=== PATIENT | male | born 1935 | race Caucasian/White ===

== ENCOUNTER → 2017-02-16 | Outpatient (CLI) | payer MEDICARE ==
[2017-02-16 10:28] LABS: CH 29.8; CHCM 30.8; HCT 40.8 % (39.0-53.0); HDW 2.14; Hypochromasia Slight; MCHC 31.9 g/dL (31.0-37.0); MCV 97.2 fL (80.0-100.0); Mean Platelet Volume 6.9; RDW 12.8 % (11.5-15.5); WBC 8.5 k/uL (3.8-10.6)
[2017-02-16 10:44] LABS: ALT 27 U/L (21-72); AST 19 U/L (17-59); Alkaline Phosphatase 44 U/L (38-126); Anion Gap 13 mmol/L; Blood Urea Nitrogen 24 mg/dL (9-20); Calcium 9.9 mg/dL (8.4-10.2); Carbon Dioxide 27 mmol/L (22-30); Chloride 101 mmol/L (98-107); Cholesterol 196 mg/dL (<200); Creatine Kinase 66 U/L (55-170); Glucose 91 mg/dL (74-99); HDL Cholesterol 74 mg/dL (40-60); Non-African American GFR(MDRD) >60 (>60 ml/min/1.73 sqM); Potassium 4.7 mmol/L (3.5-5.1); Sodium 141 mmol/L (137-145); Total Bilirubin 0.3 mg/dL (0.2-1.3); Total Protein 7.4 g/dL (6.3-8.2)
[2017-02-16 12:41] LABS: Hemoglobin A1C 5.9 % (4.2-6.1)
== END | disposition home or self-care (01) ==
LOC: LABWHC1 09:30
PROVIDERS: ATTEND Family Medicine
DX: E11.9 Type 2 diabetes mellitus without complications (principal); I10 Essential (primary) hypertension; M25.50 Pain in unspecified joint; E78.00 Pure hypercholesterolemia, unspecified
CPT/HCPCS: 36415; 80053; 80061; 82550; 83036; 85027

== ENCOUNTER → 2017-10-14 | Outpatient (CLI) | payer MEDICARE ==
[2017-10-14 09:26] LABS: HCT 37.1 % (39.0-53.0); HGB 12.1 gm/dL (13.0-17.5); MCH 29.9 pg (25.0-35.0); MCHC 32.7 g/dL (31.0-37.0); MCV 91.4 fL (80.0-100.0); Mean Platelet Volume 7.1; Platelet Count 329 k/uL (150-450); RBC 4.06 m/uL (4.30-5.90); RDW 13.4 % (11.5-15.5); WBC 7.5 k/uL (3.8-10.6)
[2017-10-14 09:40] LABS: ALT 25 U/L (21-72); AST 21 U/L (17-59); Albumin 4.3 g/dL (3.5-5.0); Alkaline Phosphatase 45 U/L (38-126); Anion Gap 15 mmol/L; Blood Urea Nitrogen 26 mg/dL (9-20); Carbon Dioxide 28 mmol/L (22-30); Chloride 99 mmol/L (98-107); Cholesterol 199 mg/dL (<200); Creatine Kinase 63 U/L (55-170); Glucose 94 mg/dL (74-99); HDL Cholesterol 63 mg/dL (40-60); LDL Cholesterol,Calculated 101 mg/dL (0-99); Potassium 4.7 mmol/L (3.5-5.1); Sodium 142 mmol/L (137-145); Total Bilirubin 0.3 mg/dL (0.2-1.3); Total Protein 7.2 g/dL (6.3-8.2); Triglycerides 176 mg/dL (<150)
[2017-10-14 18:42] LABS: Hemoglobin A1C 6.1 % (4.0-6.0)
== END | disposition home or self-care (01) ==
LOC: LABWHC1 08:40
PROVIDERS: ATTEND Family Medicine
DX: I10 Essential (primary) hypertension (principal); E11.9 Type 2 diabetes mellitus without complications; M25.50 Pain in unspecified joint; E78.00 Pure hypercholesterolemia, unspecified
CPT/HCPCS: 36415; 80053; 80061; 82550; 83036; 85027

== ENCOUNTER 2022-01-10 18:32 | Observation (INO) | payer MEDICARE ==
[2022-01-10 19:30] LABS: HCT 38.4 % (39.0-53.0); HGB 12.1 gm/dL (13.0-17.5); MCH 30.8 pg (25.0-35.0); MCHC 31.6 g/dL (31.0-37.0); MCV 97.6 fL (80.0-100.0); Mean Platelet Volume 8.4; Platelet Count 206 k/uL (150-450); RBC 3.93 m/uL (4.30-5.90); RDW 12.8 % (11.5-15.5); WBC 4.5 k/uL (3.8-10.6)
--- NOTE | 2022-01-10 19:32 | ED ---
General Adult HPI - General Chief complaint: Shortness of Breath Stated complaint: Covid+, low O2 Time Seen by Provider: 01/10/22 19:23 Source: patient, family, RN notes reviewed, old records reviewed Mode of arrival: ambulatory Limitations: no limitations - History of Present Illness Initial comments: This is a pleasant 86-year-old male that presents to the emergency room with his daughter with complaints of shortness of breath and fatigue since Tuesday. He did test positive for coronavirus. He was not vaccinated. He denies any chest pain, no nausea vomiting or diarrhea. He denies fevers. Daughter at bedside states that he seems more confused for the past couple of days. He does live alone. Patient denies any falls. Patient has a history of diabetes, hypertension and cholecystectomy. He is a previous smoker -: days(s) (, Tuesday) Severity scale (1-10): 0 Consistency: constant Improves with: none Worsens with: other (exertion) Associated Symptoms: malaise, shortness of breath, other (fatigue) Treatments Prior to Arrival: other (covid test) - Related Data Home Medications Medication Instructions Recorded Confirmed Lisinopril-Hctz 20-25 mg 1 tab PO DAILY 01/10/22 01/10/22 [Zestoretic 20-25] Lovastatin [Mevacor] 20 mg PO DAILY 01/10/22 01/10/22 Metoprolol Tartrate [Lopressor] 75 mg PO BID 01/10/22 01/10/22 amLODIPine [Norvasc] 5 mg PO DAILY 01/10/22 01/10/22 glipiZIDE [glipiZIDE ER] 2.5 mg PO DAILY 01/10/22 01/10/22 metFORMIN HCL [Glucophage] 500 mg PO BID 01/10/22 01/10/22 Allergies Allergy/AdvReac Type Severity Reaction Status Date / Time No Known Allergies Allergy Verified 01/10/22 20:24 Review of Systems ROS Statement: Those systems with pertinent positive or pertinent negative responses have been documented in the HPI. ROS Other: All systems not noted in ROS Statement are negative. Past Medical History Past Medical History: CVA/TIA, Diabetes Mellitus, Hyperlipidemia, Hypertension History of Any Multi-Drug Resistant Organisms: None Reported Past Surgical History: Cholecystectomy Past Psychological History: No Psychological Hx Reported Smoking Status: Former smoker Past Alcohol Use History: Occasional Past Drug Use History: None Reported General Exam Limitations: no limitations General appearance: alert, in no apparent distress Head exam: Present: atraumatic, normocephalic Eye exam: Present: normal appearance, EOMI. Absent: scleral icterus, conjunctival injection, nystagmus, periorbital swelling ENT exam: Present: mucous membranes moist Neck exam: Present: normal inspection, full ROM. Absent: tenderness, meningi smus, lymphadenopathy, thyromegaly Respiratory exam: Present: wheezes, decreased breath sounds. Absent: respiratory distress, accessory muscle use Cardiovascular Exam: Present: regular rate GI/Abdominal exam: Present: soft. Absent: distended, tenderness, rigid Extremities exam: Present: normal capillary refill. Absent: tenderness, pedal edema, calf tenderness Neurological exam: Present: alert (Person and place, could not answer what year it is), CN II-XII intact Expanded Neurological exam: Present: protecting the airway Patient oriented to: Present: person, place, time Speech: Present: fluid speech Cranial nerves: EOM's Intact: Normal, Gag Reflex: Normal, Tongue Deviation: Normal Motor strength exam: RUE: 5, LUE: 5, RLE: 5, LLE: 5 Eye Response: (4) open spontaneously Motor Response: (6) obeys commands Verbal Response: (5) oriented Tyrese Total: 15 Psychiatric exam: Present: normal affect, normal mood Skin exam: Present: warm, dry, normal color. Absent: cyanosis, diaphoretic, erythema, petechiae, pallor, mottled Course Vital Signs 01/10/22 01/10/22 01/10/22 18:42 18:47 19:48 Temperature 98.6 F Pulse Rate 95 Respiratory 22 Rate Blood Pressure 113/53 O2 Sat by Pulse 91 L 91 L 90 L Oximetry EKG Findings - EKG Results: EKG: sinus rhythm (Ventricular rate 93, QRS 0.80, QTC 0.387) Medical Decision Making - Medical Decision Making Patient states tested positive for coronavirus at home. Symptoms started on Tuesday with some shortness of breath with exertion and fatigue. He has not been vaccinated. Family states that he seems more confused than normal and does live alone. Oxygen saturation 90% on room air. Lungs sounds are diminished with wheezes throughout. Chest x-ray shows minimal left lower lobe pneumonia. Although this is likely Covid pneumonia, due to patient's hypoxia and comorbidities he'll be started prophylactically on antibiotics. Labs show no evidence of leukocytosis. Hemoglobin and hematocrit are stable. BUN, creatinine and troponin elevated likely due to Covid infection. Case discussed with Dr. Kuo who recommended I speak with cardiology regarding elevated troponin. I did speak with Dr. Carvalho. He will be admitted to the hospital for pneumonia, coronavirus, and hypoxia. Patient and family are agreeable to this plan of care. Case discussed with Dr. Kuo - Lab Data Result diagrams: 01/10/22 19:01 01/10/22 19:01 Lab Results 01/10/22 01/10/22 01/10/22 Range/Units 19: 19: 19:01 WBC 4.5 (3.8-10.6) k/uL RBC 3.93 L (4.30-5.90) m/uL Hgb 12.1 L (13.0-17.5) gm/dL Hct 38.4 L (39.0-53.0) % MCV 97.6 (80.0-100.0) fL MCH 30.8 (25.0-35.0) pg MCHC 31.6 (31.0-37.0) g/dL RDW 12.8 (11.5-15.5) % Plt Count 206 (150-450) k/uL MPV 8.4 Neutrophils % (Manual) 68 % Lymphocytes % (Manual) 20 % Monocytes % (Manual) 12 % Neutrophils # (Manual) 3.06 (1.3-7.7) k/uL Lymphocytes # (Manual) 0.90 L (1.0-4.8) k/uL Monocytes # (Manual) 0.54 (0-1.0) k/uL Nucleated RBCs 0 (0-0) /100 WBC Polychromasia Present PT 9.6 (9.0-12.0) sec INR 0.9 (<1.2) APTT 24.3 (22.0-30.0) sec D-Dimer (<0.60) mg/L FEU Sodium 142 (137-145) mmol/L Potassium 4.7 (3.5-5.1) mmol/L Chloride 102 (98-107) mmol/L Carbon Dioxide 31 H (22-30) mmol/L Anion Gap 9 mmol/L BUN 53 H (9-20) mg/dL Creatinine 1.63 H (0.66-1.25) mg/dL Est GFR (CKD-EPI)AfAm 44 (>60 ml/min/1.73 sqM) Est GFR (CKD-EPI)NonAf 38 (>60 ml/min/1.73 sqM) Glucose 108 H (74-99) mg/dL Plasma Lactic Acid Jose Martin (0.7-2.0) mmol/L Calcium 8.5 (8.4-10.2) mg/dL Total Bilirubin 0.2 (0.2-1.3) mg/dL AST 59 (17-59) U/L ALT 49 (4-49) U/L Alkaline Phosphatase 53 (38-126) U/L Troponin I (0.000-0.034) ng/mL Total Protein 6.6 (6.3-8.2) g/dL Albumin 3.8 (3.5-5.0) g/dL 01/10/22 01/10/22 01/10/22 Range/Units 19:01 19:01 19:01 WBC (3.8-10.6) k/uL RBC (4.30-5.90) m/uL Hgb (13.0-17.5) gm/dL Hct (39.0-53.0) % MCV (80.0-100.0) fL MCH (25.0-35.0) pg MCHC (31.0-37.0) g/dL RDW (11.5-15.5) % Plt Count (150-450) k/uL MPV Neutrophils % (Manual) % Lymphocytes % (Manual) % Monocytes % (Manual) % Neutrophils # (Manual) (1.3-7.7) k/uL Lymphocytes # (Manual) (1.0-4.8) k/uL Monocytes # (Manual) (0-1.0) k/uL Nucleated RBCs (0-0) /100 WBC Polychromasia PT (9.0-12.0) sec INR (<1.2) APTT (22.0-30.0) sec D-Dimer 0.64 H (<0.60) mg/L FEU Sodium (137-145) mmol/L Potassium (3.5-5.1) mmol/L Chloride (98-107) mmol/L Carbon Dioxide (22-30) mmol/L Anion Gap mmol/L BUN (9-20) mg/dL Creatinine (0.66-1.25) mg/dL Est GFR (CKD-EPI)AfAm (>60 ml/min/1.73 sqM) Est GFR (CKD-EPI)NonAf (>60 ml/min/1.73 sqM) Glucose (74-99) mg/dL Plasma Lactic Acid Jose Martin 0.7 (0.7-2.0) mmol/L Calcium (8.4-10.2) mg/dL Total Bilirubin (0.2-1.3) mg/dL AST (17-59) U/L ALT (4-49) U/L Alkaline Phosphatase (38-126) U/L Troponin I 1.150 H* (0.000-0.034) ng/mL Total Protein (6.3-8.2) g/dL Albumin (3.5-5.0) g/dL Disposition Clinical Impression: Pneumonia, COVID-19, Hypoxia, KENNETH (acute kidney injury) Disposition: ADMITTED IP TO THIS HOSP Decision Date: 01/10/22 Decision Time: 20:12
[2022-01-10 19:42] LABS: INR 0.9 (<1.2); Partial Thromboplastin Time 24.3 sec (22.0-30.0); Prothrombin Time 9.6 sec (9.0-12.0)
--- NOTE | 2022-01-10 19:55 | XR ---
EXAMINATION TYPE: XR chest 2V DATE OF EXAM: 01/10/2022 COMPARISON: NONE HISTORY: Short of breath TECHNIQUE: 2 view FINDINGS: Heart is normal. There is no heart failure. There is some mild infiltrate left lower lobe. The right lung is clear. There are no hilar masses. No pleural effusion. Bony thorax is intact IMPRESSION: There is some minimal left lower lobe pneumonia.
[2022-01-10 19:56] LABS: Monocytes # (M) 0.54 k/uL (0-1.0); Neutrophils # (M) 3.06 k/uL (1.3-7.7); Neutrophils % (M) 68 %; Nucleated Red Blood Cells 0 /100 WBC (0-0); Polychromasia Present; Total Cells Counted 100
[2022-01-10] MEDS ORDERED: DEXAMETHASONE SOD PHOSPHATE 10 MG/ML 1 ML VIAL IVP STA (20:08)
[2022-01-10] MEDS ORDERED: ALBUTEROL HFA INHALER INHALATION STA (20:09)
[2022-01-10] MEDS ORDERED: AZITHROMYCIN 500 MG in SODIUM CHLORIDE 0.9% 250 ML IVPB STA (20:10)
[2022-01-10] MEDS ORDERED: cefTRIAXone IN SWFI 1,000 MG/10 ML SYRINGE IVP STA (20:10)
[2022-01-10] MEDS ORDERED: NALOXONE 0.4 MG/ML 1 ML VIAL IV PRN (20:12)
[2022-01-10] MEDS ORDERED: ACETAMINOPHEN TAB 325 MG TAB PO PRN (20:14)
[2022-01-10] MEDS ORDERED: PNEUMONIA PROTOCOL UTILIZED 1 EACH MISC PO PRN (20:14)
[2022-01-10 20:20] LABS: Albumin 3.8 g/dL (3.5-5.0); Calcium 8.5 mg/dL (8.4-10.2); Potassium 4.7 mmol/L (3.5-5.1); Total Bilirubin 0.2 mg/dL (0.2-1.3); Total Protein 6.6 g/dL (6.3-8.2)
[2022-01-10] MEDS: SODIUM CHLORIDE 0.9% 1,000 ML IV SCH (20:33)
[2022-01-10] MEDS: METOPROLOL TARTRATE 25 MG TAB PO SCH (21:07)
[2022-01-10] MEDS: metFORMIN 500 MG TAB PO SCH (21:07)
[2022-01-11] MEDS: amLODIPine 5 MG TAB PO SCH (09:19)
[2022-01-11] MEDS: ATORVASTATIN 10 MG TAB PO SCH (09:19)
[2022-01-11] MEDS: metFORMIN 500 MG TAB PO SCH ×2 (09:19→21:12)
[2022-01-11] MEDS: METOPROLOL TARTRATE 25 MG TAB PO SCH ×2 (09:19→23:41)
[2022-01-11] MEDS: LISINOPRIL-HCTZ 20-25 MG 1 EACH TAB PO SCH (09:19)
--- NOTE | 2022-01-11 09:51 | P.HPIM ---
History of Present Illness This is a pleasant 86 years old male with past medical history of hypertension, hyperlipidemia, diabetes mellitus, CVA/TIA. Patient is tested positive for covid recently within days, now he Presents with dyspnea for the last 2 days. [facility] he was sitting in chair, dressed up in his casual clothes, he was eating his breakfast with good appetite. He is on 3 L oxygen per minute. Patient denies being on oxygen at home. On admission he was placed on BiPAP Patient denies any chest pain. No abdominal pain or vomiting. No urinary complaints. No fever. He denies smoking, alcohol or illicit drugs He is saturating 91% on room air on admission. Currently he is saturating 95% to 97% on 2 L oxygen Labs reviewed, hemoglobin 12.1, rest of CBC, INR are unremarkable. with creatinine 1.6. Slightly up D-dimer 0.64 but it when adjusted for age. Will be within the reference range Elevated troponin 1.1. schaeffer virus detected EKG showing atrial fibrillation with rate of 93 Chest x-ray: There is some minimal left lower lobe pneumonia Emergency room patient was started on Zithromax and ceftriaxone and normal saline and admitted to the hospital with pulmonary consult Review of Systems Review of systems CONSTITUTIONAL: No fever, no malaise, no fatigue. HEENT: No recent visual problems or hearing problems. Denied any sore throat. CARDIOVASCULAR: No orthopnea, PND, no palpitations, no syncope. PULMONARY: No chest wall tenderness, no hemoptysis. GASTROINTESTINAL: No diarrhea, no nausea, no vomiting, no abdominal pain. Normoactive bowel sounds. NEUROLOGICAL: No headaches, no weakness, no numbness. HEMATOLOGICAL: Denies any bleeding or petechiae. GENITOURINARY: Denies any burning micturition, frequency, or urgency. MUSCULOSKELETAL/RHEUMATOLOGICAL: Denies any joint pain, swelling, or any muscle pain. ENDOCRINE: Denies any polyuria or polydipsia. Past Medical History Past Medical History: CVA/TIA, Diabetes Mellitus, Hyperlipidemia, Hypertension History of Any Multi-Drug Resistant Organisms: None Reported Past Surgical History: Cholecystectomy Past Psychological History: No Psychological Hx Reported Smoking Status: Former smoker Past Alcohol Use History: Occasional Past Drug Use History: None Reported Medications and Allergies Home Medications Medication Instructions Recorded Confirmed Type Lisinopril-Hctz 20-25 mg 1 tab PO DAILY 01/10/22 01/10/22 History [Zestoretic 20-25] Lovastatin [Mevacor] 20 mg PO DAILY 01/10/22 01/10/22 History Metoprolol Tartrate [Lopressor] 75 mg PO BID 01/10/22 01/10/22 History amLODIPine [Norvasc] 5 mg PO DAILY 01/10/22 01/10/22 History glipiZIDE [glipiZIDE ER] 2.5 mg PO DAILY 01/10/22 01/10/22 History metFORMIN HCL [Glucophage] 500 mg PO BID 01/10/22 01/10/22 History Allergies Allergy/AdvReac Type Severity Reaction Status Date / Time No Known Allergies Allergy Verified 01/10/22 20:24 Physical Exam Vitals: Vital Signs Temp Pulse Resp BP Pulse Ox 01/11/22 04:00 98.0 F 79 16 121/71 01/11/22 01:00 97.9 F 98 14 154/64 97 01/10/22 19:48 90 L 01/10/22 18:47 91 L 01/10/22 18:42 98.6 F 95 22 113/53 91 L Intake and Output 01/10/22 01/11/22 01/11/22 22:59 06:59 14:59 Other: Weight 74.843 kg GENERAL: The patient is alert and oriented x3, not in any acute distress. Well developed, well nourished. HEENT: Pupils are round and equally reacting to light. EOMI. No scleral icterus. No conjunctival pallor. Normocephalic, atraumatic. No pharyngeal erythema. No thyromegaly. CARDIOVASCULAR: S1 and S2 present. No murmurs, rubs, or gallops. PULMONARY: Chest is clear to auscultation, no wheezing or crackles. ABDOMEN: Soft, nontender, nondistended, normoactive bowel sounds. No palpable organomegaly. MUSCULOSKELETAL: No joint swelling or deformity. EXTREMITIES: No cyanosis, clubbing, or pedal edema. NEUROLOGICAL: Gross neurological examination did not reveal any focal deficits. SKIN: No rashes. no petechiae. Results CBC & Chem 7: 01/10/22 19:01 01/10/22 19:01 Labs: Abnormal Lab Results - Last 24 Hours (Table) 01/10/22 01/10/2201/10/22 Range/Units 19:01 19:01 19:01 RBC 3.93 L (4.30-5.90) m/uL Hgb 12.1 L (13.0-17.5) gm/dL Hct 38.4 L (39.0-53.0) % Lymphocytes # (Manual) 0.90 L (1.0-4.8) k/uL D-Dimer (<0.60) mg/L FEU Carbon Dioxide 31 H (22-30) mmol/L BUN 53 H (9-20) mg/dL Creatinine 1.63 H (0.66-1.25) mg/dL Glucose 108 H (74-99) mg/dL Troponin I 1.150 H* (0.000-0.034) ng/mL Coronavirus (PCR) (Not Detectd) 01/10/22 01/10/22 Range/Units 19:01 20:54 RBC (4.30-5.90) m/uL Hgb (13.0-17.5) gm/dL Hct (39.0-53.0) % Lymphocytes # (Manual) (1.0-4.8) k/uL D-Dimer 0.64 H (<0.60) mg/L FEU Carbon Dioxide (22-30) mmol/L BUN (9-20) mg/dL Creatinine (0.66-1.25) mg/dL Glucose (74-99) mg/dL Troponin I (0.000-0.034) ng/mL Coronavirus (PCR) Detected A (Not Detectd) Assessment and Plan Assessment: Acute kidney injury Acute covid infection . Without pneumonia or hypoxia Possible community-acquired left lower lobe pneumonia Mildly elevated troponin mild acute hypoxic respiratory failure Atrial fibrillation with controlled rate Diabetes mellitus Hypertension Hyperlipidemia History of CVA/TIA Plan: This is a pleasant 86 years old male who presents with covid infectino , possible pneumonia, KENNETH and high troponin checked procalcitonin From a pulmonary consult Start vitamin D, C and zinc Cardiology consult continue with IV fluid and monitor creatinine. Check urinalysis and bladder scan h aspirin Labs and medication were reviewed.. Continue same treatment. Continue with symptomatic treatment. Resume home medication. Monitor lytes and vitals. DVT and GI prophylaxis. Further recommendations as per clinical course of the patient DVT prophylaxis: Subcutaneous heparin GI Prophylaxis: Pepcid PT/OT: Pending Prognosis is guarded A
[2022-01-11] MEDS ORDERED: DEXTROSE 50% SYRINGE 50 ML IVP PRN ×2 (09:52)
--- NOTE | 2022-01-11 10:21 | P.CRDCN ---
History of Present Illness Consult date: 01/11/22 Reason for Consult (text): arrythmia History of present illness: The patient is an 86-year-old male with past medical history of hypertension, d iabetes, and dyslipidemia, who presented to the hospital with progressive shortness of breath and weakness. He states this had been ongoing for the last several days. He denies any associated chest pain or chest pressure. No nausea or vomiting. He states he has no cardiac history and does not follow with a endoscope technician. DIAGNOSTICS: EKG shows sinus rhythm with frequent PACs Chest x-ray shows left lower lobe pneumonia Lab data: WBC 4.5, hemoglobin 12.1, hematocrit 38.4, platelet 206, d-dimer 0.64, sodium 142, potassium 4.7, BUN 53, creatinine 1.63, AST 59, ALP 49 0, troponin 1.1, positive or COVID-19 PAST MEDICAL HISTORY: Hypertension, diabetes, dyslipidemia REVIEW OF SYSTEMS: No fever or chills. No cough or expectoration. No diaphoresis. Patient denies headache, dizziness, blurred vision, double vision. Patient denies any stomach discomfort. No nausea, vomiting. No hematochezia. No hematemesis. Denies any black stools or blood in his stools. Denies dysuria or hematuria. No muscle weakness or numbness. No shortness of breath currently. No chest pain or chest pressure. PHYSICAL EXAMINATION: Limited due to COVID-19 pandemic. FINAL ASSESSMENT AND PLAN: Acute COVID-19 infection, left lower lobe pneumonia Cardiac arrhythmia, frequent PACs History hypertension History of diabetes mellitus History of dyslipidemia PLAN: Resume home dose of beta ashley Continue supportive treatment 3-year-old Further recommendations to be based upon clinical course I am dictating on behalf of Dr José Antonio Dyson's history/physical and assessment/plan. Past Medical History Past Medical History: CVA/TIA, Diabetes Mellitus, Hyperlipidemia, Hypertension History of Any Multi-Drug Resistant Organisms: None Reported Past Surgical History: Cholecystectomy Past Psychological History: No Psychological Hx Reported Smoking Status: Former smoker Past Alcohol Use History: Occasional Past Drug Use History: None Reported Medications and Allergies Home Medications Medication Instructions Recorded Confirmed Type Lisinopril-Hctz 20-25 mg 1 tab PO DAILY 01/10/22 01/10/22 History [Zestoretic 20-25] Lovastatin [Mevacor] 20 mg PO DAILY 01/10/22 01/10/22 History Metoprolol Tartrate [Lopressor] 75 mg PO BID 01/10/22 01/10/22 History amLODIPine [Norvasc] 5 mg PO DAILY 01/10/22 01/10/22 History glipiZIDE [glipiZIDE ER] 2.5 mg PO DAILY 01/10/22 01/10/22 History metFORMIN HCL [Glucophage] 500 mg PO BID 01/10/22 01/10/22 History Allergies Allergy/AdvReac Type Severity Reaction Status Date / Time No Known Allergies Allergy Verified 01/10/22 20:24 Physical Exam Vitals: Vital Signs Temp Pulse Resp BP Pulse Ox 01/11/22 04:00 98.0 F 79 16 121/71 01/11/22 01:00 97.9 F 98 14 154/64 97 01/10/22 19:48 90 L 01/10/22 18:47 91 L 01/10/22 18:42 98.6 F 95 22 113/53 91 L Intake and Output 01/10/22 01/11/22 01/11/22 22:59 06:59 14:59 Other: Weight 74.843 kg Results 01/10/22 19:01 01/10/22 19:01 Cardiac Enzymes 01/10/22 01/10/22 Range/Units 19:01 19:01 AST 59 (17-59) U/L Troponin I 1.150 H* (0.000-0.034) ng/mL Coagulation 01/10/22 Range/Units 19:01 PT 9.6 (9.0-12.0) sec APTT 24.3 (22.0-30.0) sec CBC 01/10/22 Range/Units 19:01 WBC 4.5 (3.8-10.6) k/uL RBC 3.93 L (4.30-5.90) m/uL Hgb 12.1 L (13.0-17.5) gm/dL Hct 38.4 L (39.0-53.0) % Plt Count 206 (150-450) k/uL Comprehensive Metabolic Panel 01/10/22 Range/Units 19:01 Sodium 142 (137-145) mmol/L Potassium 4.7 (3.5-5.1) mmol/L Chloride 102 (98-107) mmol/L Carbon Dioxide 31 H (22-30) mmol/L BUN 53 H (9-20) mg/dL Creatinine 1.63 H (0.66-1.25) mg/dL Glucose 108 H (74-99) mg/dL Calcium 8.5 (8.4-10.2) mg/dL AST 59 (17-59) U/L ALT 49 (4-49) U/L Alkaline Phosphatase 53 (38-126) U/L Total Protein 6.6 (6.3-8.2) g/dL Albumin 3.8 (3.5-5.0) g/dL Current Medications Generic Name Dose Route Start Last Admin Trade Name Freq PRN Reason Stop Dose Admin Acetaminophen 650 mg 01/10/22 20:14 Acetaminophen Tab 325 Mg Tab PO Q4HR PRN Fever and/ or Pain Amlodipine Besylate 5 mg 01/11/22 09:00 01/11/22 09:19 Amlodipine 5 Mg Tab PO 5 mg DAILY GLENIS Administration Ascorbic Acid 1,000 mg 01/11/22 09:30 Ascorbic Acid 500 Mg Tab PO DAILY [facility] Atorvastatin Calcium 10 mg 01/11/22 09:00 01/11/22 09:19 Atorvastatin 10 Mg Tab PO 10 mg DAILY GLENIS Administration Cholecalciferol 50 mcg 01/11/22 09:30 Cholecalciferol 25 Mcg (1000 Iu) Tablet PO DAILY [facility] Dextrose/Water 25 ml 01/11/22 09:52 Dextrose 50% Syringe 50 Ml IVP PER PROTOCOL PRN Hypoglycemia Protocol Dextrose/Water 50 ml 01/11/22 09:52 Dextrose 50% Syringe 50 Ml IVP PER PROTOCOL PRN Hypoglycemia Protocol Enoxaparin Sodium 40 mg 01/11/22 09:45 Enoxaparin 40 Mg/0.4 Ml Syringe SQ DAILY [facility] Famotidine 20 mg 01/11/22 21:00 Famotidine 20 Mg/2 Ml Vial IV Q12HR GLENIS Glipizide 2.5 mg 01/11/22 07:30 Glipizide 2.5 Mg Tab PO W/[id number] GLENIS Lisinopril/HCTZ 1 each 01/11/22 09:00 01/11/22 09:19 Lisinopril-Hctz 20-25 Mg 1 Each Tab PO 1 each DAILY GLENIS Administration Sodium Chloride 1,000 mls @ 75 mls/hr 01/10/22 20:15 01/10/22 20:33 Saline 0.9% IV 75 mls/hr .[id number] GLENIS Administration Insulin Aspart 0 unit 01/11/22 12:30 Insulin Aspart (Novolog) 100 Unit/Ml Vial SQ ACHS [facility] Protocol Metformin HCl 500 mg 01/10/22 21:00 01/11/22 09:19 Metformin 500 Mg Tab PO 500 mg BID GLENIS Administration Metoprolol Tartrate 75 mg 01/10/22 21:00 01/11/22 09:19 Metoprolol Tartrate 25 Mg Tab PO 75 mg BID GLENIS Administration Miscellaneous Information 1 each 01/10/22 20:14 Pneumonia Protocol Utilized 1 Each Misc PO ONCE PRN Per Protocol Naloxone HCl 0.2 mg 01/10/22 20:12 Naloxone 0.4 Mg/Ml 1 Ml Vial IV Q2M PRN Opioid Reversal Zinc Sulfate 220 mg 01/11/22 09:30 Zinc Sulfate 220 Mg Cap PO DAILY GLENIS Intake and Output 01/10/22 01/11/22 01/11/22 22:59 06:59 14:59 Other: Weight 74.843 kg 01/10/22 19:01 01/10/22 19:01
[2022-01-11 11:30] LABS: C Reactive Protein 3.3 mg/dL (<1.0); Calcium 8.5 mg/dL (8.4-10.2); Magnesium 1.8 mg/dL (1.6-2.3); Potassium 5.5 mmol/L (3.5-5.1)
[2022-01-11 11:50] LABS: Glucose,Whole Blood 262 mg/dL (70-110)
[2022-01-11] MEDS: ENOXAPARIN 40 MG/0.4 ML SYRINGE SQ SCH (12:15)
[2022-01-11] MEDS: ASCORBIC ACID 500 MG TAB PO SCH (12:15)
[2022-01-11] MEDS: CHOLECALCIFEROL 25 MCG (1000 IU) TABLET PO SCH (12:15)
[2022-01-11] MEDS: INSULIN ASPART (NovoLOG) 100 UNIT/ML VIAL SQ SCH ×3 (12:18→21:12)
[2022-01-11] MEDS: ZINC SULFATE 220 MG CAP PO SCH (12:18)
--- NOTE | 2022-01-11 13:16 | P.CNPUL ---
History of Present Illness Consult date: 01/11/22 Reason for consult: dyspnea History of present illness: This is a pleasant 86-year-old male that presents to the emergency room with his daughter with complaints of shortness of breath and fatigue since Tuesday. He did test positive for coronavirus. He was not vaccinated. He denies any chest pain, no nausea vomiting or diarrhea. He denies fevers. Daughter at bedside states that he seems more confused for the past couple of days. He does live alone. Patient denies any falls. Patient has a history of diabetes, hypertension and cholecystectomy. He is a previous smoker. I saw this patient in consultation today. The patient is a poor historian. In fact he is not sure exactly exact onset of symptoms. He was initially placed on 2 L of oxygen by nasal cannula and currently is on room air oxygen. He denies having any cough or respiratory distress. He was given a dose of Decadron initially. Nevertheless, his vaccination currently has normalized. He is hemodynamically stable for now. No nausea. No vomiting. No diarrhea. I reviewed the chest x- ray and there is some limited left lower lobe infiltration although this does not clear within the related to pneumonia. The patient has a stable creatinine of 1.3 which is improved compared to yesterday with fluids. Troponin was elevated at 1.1.His electrolytes are stable and his potassium level is 5.5 from today. Blood sugars at 262. D-dimer is at 0.8. White cell count of 4.5 with hemoglobin of 12.1. He was noted in atrial fibrillation at a time of admission and currently his rhythm is back to sinus. Review of Systems CONSTITUTIONAL: No fever, no malaise, no fatigue. HEENT: No recent visual problems or hearing problems. Denied any sore throat. CARDIOVASCULAR: No orthopnea, PND, no palpitations, no syncope. PULMONARY: No chest wall tenderness, no hemoptysis. GASTROINTESTINAL: No diarrhea, no nausea, no vomiting, no abdominal pain. Normoactive bowel sounds. NEUROLOGICAL: No headaches, no weakness, no numbness. HEMATOLOGICAL: Denies any bleeding or petechiae. GENITOURINARY: Denies any burning micturition, frequency, or urgency. MUSCULOSKELETAL/RHEUMATOLOGICAL: Denies any joint pain, swelling, or any muscle pain. ENDOCRINE: Denies any polyuria or polydipsia. Constitutional: Reports fatigue, Reports weakness Eyes: denies as per HPI, denies blurred vision, denies bulging eye, denies decreased vision, denies diplopia, denies discharge, denies dry eye, denies irr itation, denies itching, denies pain, denies photophobia, denies loss of peripheral vision, denies loss of vision, denies tunnel vision/blind spots Ears: deny: decreased hearing, ear discharge, earache, tinnitus Ears, nose, mouth and throat: Reports as per HPI Breasts: absent: as per HPI, gynecomastia Cardiovascular: Reports decreased exercise tolerance Respiratory: Reports cough, Reports dyspnea Gastrointestinal: Reports as per HPI Genitourinary: Reports as per HPI Musculoskeletal: Reports as per HPI Musculoskeletal: absent: ankle pain, ankle stiffness, ankle swelling, as per HPI, elbow pain, elbow stiffness, elbow swelling, foot pain, foot stiffness, foot swelling, hand pain, hand stiffness, hand swelling, hip pain, hip stiffness, hip swelling, knee pain, knee stiffness, knee swelling, shoulder pain, shoulder stiffness, shoulder swelling, wrist pain, wrist stiffness, wrist swelling Integumentary: Reports as per HPI Neurological: Reports as per HPI, Reports memory loss, Reports weakness Psychiatric: Reports as per HPI, Reports confusion Hematologic/Lymphatic: Reports as per HPI Allergic/Immunologic: Reports as per HPI Past Medical History Past Medical History: CVA/TIA, Diabetes Mellitus, Hyperlipidemia, Hypertension History of Any Multi-Drug Resistant Organisms: None Reported Past Surgical History: Cholecystectomy Past Psychological History: No Psychological Hx Reported Smoking Status: Former smoker Past Alcohol Use History: Occasional Past Drug Use History: None Reported Medications and Allergies Home Medications Medication Instructions Recorded Confirmed Type Lisinopril-Hctz 20-25 mg 1 tab PO DAILY 01/10/22 01/10/22 History [Zestoretic 20-25] Lovastatin [Mevacor] 20 mg PO DAILY 01/10/22 01/10/22 History Metoprolol Tartrate [Lopressor] 75 mg PO BID 01/10/22 01/10/22 History amLODIPine [Norvasc] 5 mg PO DAILY 01/10/22 01/10/22 History glipiZIDE [glipiZIDE ER] 2.5 mg PO DAILY 01/10/22 01/10/22 History metFORMIN HCL [Glucophage] 500 mg PO BID 01/10/22 01/10/22 History Allergies Allergy/AdvReac Type Severity Reaction Status Date / Time No Known Allergies Allergy Verified 01/10/22 20:24 Physical Exam Vitals: Vital Signs Temp Pulse Pulse Resp BP BP Pulse Ox 01/11/22 09:55 97.7 F 70 18 122/77 97 01/11/22 04:00 98.0 F 79 16 121/71 01/11/22 01:00 97.9 F 98 14 154/64 97 01/10/22 19:48 90 L 01/10/22 18:47 91 L 01/10/22 18:42 98.6 F 95 22 113/53 91 L Intake and Output 01/10/22 01/11/22 01/11/22 22:59 06:59 14:59 Other: Weight 74.843 kg 74.843 kg GENERAL: The patient is alert and oriented x3, not in any acute distress. Well developed, well nourished. The patient's Albumin oxygen and the patient is not having any labored breathing. HEENT: Pupils are round and equally reacting to light. EOMI. No scleral icterus. No conjunctival pallor. Normocephalic, atraumatic. No pharyngeal erythema. No thyromegaly. CARDIOVASCULAR: S1 and S2 present. No murmurs, rubs, or gallops. PULMONARY: Chest is clear to auscultation, no wheezing or crackles. ABDOMEN: Soft, nontender, nondistended, normoactive bowel sounds. No palpable organomegaly. MUSCULOSKELETAL: No joint swelling or deformity. EXTREMITIES: No cyanosis, clubbing, or pedal edema. NEUROLOGICAL: Gross neurological examination did not reveal any focal deficits. SKIN: No rashes. no petechiae. Results - Laboratory Findings CBC and BMP: 01/10/22 19:01/11/22 10:56 PT/INR, D-dimer PT 9.6 sec (9.0-12.0) 01/10/22 19: INR 0.9 (<1.2) 01/10/22 19: D-Dimer 0.64 mg/L FEU (<0.60) H 01/10/22 19:01 Abnormal lab findings: Abnormal Labs 01/10/22 01/10/22 01/10/22 19: 19: 19: RBC 3.93 L Hgb 12.1 L Hct 38.4 L Lymphocytes # (Manual) 0.90 L D-Dimer Carbon Dioxide 31 H BUN 53 H Creatinine 1.63 H Glucose 108 H Troponin I 1.150 H* Coronavirus (PCR) 01/10/22 01/10/22 19:01 20:54 RBC Hgb Hct Lymphocytes # (Manual) D-Dimer 0.64 H Carbon Dioxide BUN Creatinine Glucose Troponin I Coronavirus (PCR) Detected A - Diagnostic Findings Chest x-ray: image reviewed Assessment and Plan Plan: Acute covid infection . This is a nontoxic the patient. The patient had symptom onset of at least 5-6 days. The patient is not having any significant hypoxemia and the chest x-rays showing some questionable left basilar infiltration, nonspecific finding, probably not related to any pulmonary infection resistant and further monitored. Atrial fibrillation with RVR, current rhythm is sinus Acute kidney injury , probably related to intravascular volume depletion, currently improving and the creatinine is down to 1.3 Mildly elevated troponin, rule out possible non-STEMI, rule out COVID induced acute hypoxic respiratory failure, initially was on 2 L by nasal cannula and the patient is currently on room air Atrial fibrillation with controlled rate chronic versus new onset acute atrial fibrillation. The patient also has Q waves in the septal leads indicating a previous myocardial infarction. The patient's cardiac rhythm is currently sinus. Diabetes mellitus Hypertension Hyperlipidemia History of CVA/TIA Plan The patient on room air oxygen There is no need for steroids at this point in time Monitor respiratory status Repeat chest x-ray with next 24 hours Check inflammatory markers including LDH, CRP, and pro-calcitonin level D dimers are low Cardiac rhythm is sinus Cardiology consultation regarding abnormal troponins and A. fib. It's payal sonable to proceed with a echocardiogram at least. Monitor renal function Resume all medication continue the normal saline at the rate of 75 mL an hour Multivitamins Lovenox for DVT prophylaxis We'll follow
[2022-01-11 16:48] LABS: Glucose,Whole Blood 339 mg/dL (70-110)
[2022-01-11 20:25] LABS: Glucose,Whole Blood 316 mg/dL (70-110)
[2022-01-11] MEDS ORDERED: FAMOTIDINE 20 MG/2 ML VIAL IV SCH (21:00)
[2022-01-11] MEDS: FAMOTIDINE 20 MG/2 ML VIAL IV SCH (21:12)
[2022-01-11] MEDS: SODIUM CHLORIDE 0.9% 1,000 ML IV SCH (23:40)
[2022-01-12] MEDS: SODIUM CHLORIDE 0.9% 1,000 ML IV SCH ×2 (01:21→19:16)
[2022-01-12 04:45] LABS: Appearance,Urine Clear (Clear); Bacteria,Urine Rare /hpf; Bilirubin,Urine Negative (Negative); Blood,Urine Negative (Negative); Color,Urine Yellow; Glucose,Urine (UA) Negative (Negative); Hyaline Casts,Urine 23 /lpf (0-2); Ketones,Urine Negative (Negative); Leukocyte Esterase,Urine Small (Negative); Mucus,Urine Rare /hpf; Nitrite,Urine Negative (Negative); Protein,Urine 1+ (Negative); RBC,Urine <1 /hpf (0-5); Specific Gravity,Urine 1.016 (1.001-1.035); Squamous Epithelial Cell,Urine <1 /hpf (0-4); Urobilinogen,Urine <2.0 mg/dL (<2.0); WBC,Urine 7 /hpf (0-5)
[2022-01-12 06:07] LABS: Glucose,Whole Blood 224 mg/dL (70-110)
[2022-01-12] MEDS: INSULIN ASPART (NovoLOG) 100 UNIT/ML VIAL SQ SCH ×4 (06:44→21:34)
--- NOTE | 2022-01-12 07:27 | XR ---
EXAMINATION TYPE: XR chest 1V DATE OF EXAM: 01/12/2022 CLINICAL HISTORY: Difficulty breathing and pneumonia progress study. TECHNIQUE: Single AP portable upright view of the chest is obtained. COMPARISON: Chest x-ray from 2 days earlier FINDINGS: Stable left basilar opacity. Right lung remains clear. Cardiac silhouette size stable and within normal limits. Osseous structures are intact. IMPRESSION: Persistent left basilar opacity consistent with atelectasis and/or acute infiltrate. No significant change from prior study.
[2022-01-12] MEDS: ATORVASTATIN 10 MG TAB PO SCH (08:51)
[2022-01-12] MEDS: METOPROLOL TARTRATE 25 MG TAB PO SCH ×2 (08:51→21:34)
[2022-01-12] MEDS: ASCORBIC ACID 500 MG TAB PO SCH (08:51)
[2022-01-12] MEDS: ZINC SULFATE 220 MG CAP PO SCH (08:51)
[2022-01-12] MEDS: LISINOPRIL-HCTZ 20-25 MG 1 EACH TAB PO SCH (08:51)
[2022-01-12] MEDS: metFORMIN 500 MG TAB PO SCH ×2 (08:51→21:35)
[2022-01-12] MEDS: amLODIPine 5 MG TAB PO SCH (08:51)
[2022-01-12] MEDS: CHOLECALCIFEROL 25 MCG (1000 IU) TABLET PO SCH (08:51)
[2022-01-12] MEDS: ENOXAPARIN 40 MG/0.4 ML SYRINGE SQ SCH (08:54)
[2022-01-12 09:04] LABS: Basophils % (A) 0 %; Eosinophils % (A) 0 %; HCT 40.1 % (39.0-53.0); Hypochromasia Marked; Lymphocytes # (A) 0.8 k/uL (1.0-4.8); Lymphocytes % (A) 11 %; MCH 29.9 pg (25.0-35.0); MCV 99.8 fL (80.0-100.0); Mean Platelet Volume 8.4; Monocytes # (A) 0.8 k/uL (0-1.0); Monocytes % (A) 10 %; Neutrophils # (A) 5.8 k/uL (1.3-7.7); Neutrophils % (A) 78 %; Platelet Count 266 k/uL (150-450); RBC 4.02 m/uL (4.30-5.90); RDW 12.3 % (11.5-15.5); WBC 7.4 k/uL (3.8-10.6)
[2022-01-12 09:13] LABS: Calcium 8.6 mg/dL (8.4-10.2); Magnesium 1.8 mg/dL (1.6-2.3)
[2022-01-12 09:34] LABS: Potassium 4.8 mmol/L (3.5-5.1)
[2022-01-12 12:09] LABS: Glucose,Whole Blood 122 mg/dL (70-110)
--- NOTE | 2022-01-12 12:13 | P.PN ---
Subjective Progress Note Date: 01/12/22 CHIEF COMPLAINT: Arrhythmia HISTORY OF PRESENT ILLNESS: This is a 86-year-old male who was admitted to the hospital secondary to Covid. Case discussed with patient's nurse who states the patient has had no complaint of chest pain or pressure. He denied shortness of breath. Telemetry revealed sinus mechanism. Vital signs are stable. PHYSICAL EXAM: Thorough physical exam not completed secondary to limited evaluation/examination due to Covid19 ASSESSMENT: Acute COVID-19 infection, left lower lobe pneumonia Cardiac arrhythmia, frequent PACs History hypertension History of diabetes mellitus History of dyslipidemia PLAN: 2D limited echo ordered. Await results. Continue current cardiac medications Continue telemetry monitoring Further recommendations pending patient course Nurse practitioner note has been reviewed by physician. Signing provider agrees with the documented findings, assessment, and plan of care. Objective - Vital Signs Vital signs: Vital Signs Temp 98.0 F 01/12/22 08:00 Pulse 69 01/12/22 08:00 Resp 18 01/12/22 08:00 BP 134/67 01/12/22 08:00 Pulse Ox 98 01/12/22 08:00 FiO2 Intake & Output 01/11/22 01/12/22 01/12/22 18:59 06:59 18:59 Intake Total 358 120 Balance 358 120 Weight 74.843 kg Intake: Oral 358 120 Other: Voiding Method Toilet Toilet # Voids 3 2 - Labs CBC & Chem 7: 01/12/22 08:41 01/12/22 08:41 Labs: Abnormal Lab Results - Last 24 Hours (Table) 01/11/22 01/11/22 01/11/22 Range/Units 10:56 16:46 20:24 RBC (4.30-5.90) m/uL Hgb (13.0-17.5) gm/dL MCHC (31.0-37.0) g/dL Lymphocytes # (1.0-4.8) k/uL Carbon Dioxide (22-30) mmol/L BUN (9-20) mg/dL Creatinine (0.66-1.25) mg/dL Glucose (74-99) mg/dL POC Glucose (mg/dL) 339 H 316 H (70-110) mg/dL Hemoglobin A1c 6.6 H (0.0-6.0) % Urine Protein (Negative) Ur Leukocyte Esterase (Negative) Urine WBC (0-5) /hpf Urine WBC Clumps (None) /hpf Urine Bacteria (None) /hpf Hyaline Casts (0-2) /lpf Urine Mucus (None) /hpf 01/12/22 01/12/22 01/12/22 Range/Units 03:53 06:06 08:41 RBC 4.02 L (4.30-5.90) m/uL Hgb 12.0 L (13.0-17.5) gm/dL MCHC 30.0 L (31.0-37.0) g/dL Lymphocytes # 0.8 L (1.0-4.8) k/uL Carbon Dioxide (22-30) mmol/L BUN (9-20) mg/dL Creatinine (0.66-1.25) mg/dL Glucose (74-99) mg/dL POC Glucose (mg/dL) 224 H (70-110) mg/dL Hemoglobin A1c (0.0-6.0) % Urine Protein 1+ H (Negative) Ur Leukocyte Esterase Small H (Negative) Urine WBC 7 H (0-5) /hpf Urine WBC Clumps Rare H (None) /hpf Urine Bacteria Rare H (None) /hpf Hyaline Casts 23 H (0-2) /lpf Urine Mucus Rare H (None) /hpf 01/12/22 01/12/22 Range/Units 08:41 12:07 RBC (4.30-5.90) m/uL Hgb (13.0-17.5) gm/dL MCHC (31.0-37.0) g/dL Lymphocytes # (1.0-4.8) k/uL Carbon Dioxide 31 H (22-30) mmol/L BUN 62 H (9-20) mg/dL Creatinine 1.28 H (0.66-1.25) mg/dL Glucose 141 H (74-99) mg/dL POC Glucose (mg/dL) 122 H (70-110) mg/dL Hemoglobin A1c (0.0-6.0) % Urine Protein (Negative) Ur Leukocyte Esterase (Negative) Urine WBC (0-5) /hpf Urine WBC Clumps (None) /hpf Urine Bacteria (None) /hpf Hyaline Casts (0-2) /lpf Urine Mucus (None) /hpf Microbiology - Last 24 Hours (Table) 01/10/22 20:30 Blood Culture - Preliminary Blood No Growth after 24 hours
[2022-01-12] MEDS ORDERED: INSULIN ASPART (NovoLOG) 100 UNIT/ML VIAL SQ ONE (17:24)
[2022-01-12 19:07] LABS: Glucose,Whole Blood 169 mg/dL (70-110)
[2022-01-12 20:27] LABS: Glucose,Whole Blood 172 mg/dL (70-110)
[2022-01-12] MEDS: FAMOTIDINE 20 MG/2 ML VIAL IV SCH (21:34)
--- NOTE | 2022-01-12 22:09 | P.PN ---
Subjective Progress Note Date: 01/12/22 Principal diagnosis: Acute COVID-19 infection, left lower lobe infiltrate, possible pneumonia could be related to COVID-19 infection or possibly underlying bacterial pneumonia Patient was reevaluated today on 01/12/22, patient continues to have some cough, slight shortness of breath, feeling a bit better compared to how he felt yesterday upon admission. Patient is on 2 L nasal cannula, O2 sats is 96%. WBC count today is 7.4 hemoglobin is 12. Electrolytes are normal. However his BUN is 62 creatinine 1.28. Chest x-ray continues to show persistent left basilar opacity consistent with atelectasis or infiltrate, no change from the admission chest x-ray. Blood cultures remain negative so far Objective - Vital Signs Vital signs: Vital Signs Temp 98.2 F 01/12/22 20:38 Pulse 96 01/12/22 20:38 Resp 20 01/12/22 20:38 BP 122/75 01/12/22 20:38 Pulse Ox 96 01/12/22 20:38 FiO2 Intake & Output 01/12/22 01/12/22 01/13/22 06:59 18:59 06:59 Intake Total 120 Balance 120 Intake: Oral 120 Other: Voiding Method Toilet # Voids 2 - Exam Physical Exam: Revealed an 86-year-old white male on 2 L nasal cannula, in no distress. Head: Atraumatic, normocephalic. HEENT:[Neck is supple.] [No neck masses.] [No thyromegaly.] [No JVD.] Chest: [Clear throughout, no crackles, no rhonchi, no wheezes.] Cardiac Exam: [Normal S1 and S2, no S3 gallop, no murmur.] Abdomen: [Soft, nontender, no megaly, no rebound, no guarding, normal bowel sounds.] Extremities: [No clubbing, no edema, no cyanosis .] Neurological Exam: [No focal neurologic deficit.] Alert oriented 3. Psychiatric: Normal mood, affect and normal mental status examination. Skin: No rashes. Musculoskeletal: No deformities and no limitation in range of motion - Labs CBC & Chem 7: 01/12/22 08:41 01/12/22 08:41 Labs: Abnormal Lab Results - Last 24 Hours (Table) 01/12/22 01/12/22 01/12/22 Range/Units 03:53 06:06 08:41 RBC 4.02 L (4.30-5.90) m/uL Hgb 12.0 L (13.0-17.5) gm/dL MCHC 30.0 L (31.0-37.0) g/dL Lymphocytes # 0.8 L (1.0-4.8) k/uL Carbon Dioxide (22-30) mmol/L BUN (9-20) mg/dL Creatinine (0.66-1.25) mg/dL Glucose (74-99) mg/dL POC Glucose (mg/dL) 224 H (70-110) mg/dL Urine Protein 1+ H (Negative) Ur Leukocyte Esterase Small H (Negative) Urine WBC 7 H (0-5) /hpf Urine WBC Clumps Rare H (None) /hpf Urine Bacteria Rare H (None) /hpf Hyaline Casts 23 H (0-2) /lpf Urine Mucus Rare H (None) /hpf 01/12/22 01/12/22 01/12/22 Range/Units 08:41 12:07 16:51 RBC (4.30-5.90) m/uL Hgb (13.0-17.5) gm/dL MCHC (31.0-37.0) g/dL Lymphocytes # (1.0-4.8) k/uL Carbon Dioxide 31 H (22-30) mmol/L BUN 62 H (9-20) mg/dL Creatinine 1.28 H (0.66-1.25) mg/dL Glucose 141 H (74-99) mg/dL POC Glucose (mg/dL) 122 H 169 H (70-110) mg/dL Urine Protein (Negative) Ur Leukocyte Esterase (Negative) Urine WBC (0-5) /hpf Urine WBC Clumps (None) /hpf Urine Bacteria (None) /hpf Hyaline Casts (0-2) /lpf Urine Mucus (None) /hpf 01/12/22 Range/Units 20:25 RBC (4.30-5.90) m/uL Hgb (13.0-17.5) gm/dL MCHC (31.0-37.0) g/dL Lymphocytes # (1.0-4.8) k/uL Carbon Dioxide (22-30) mmol/L BUN (9-20) mg/dL Creatinine (0.66-1.25) mg/dL Glucose (74-99) mg/dL POC Glucose (mg/dL) 172 H (70-110) mg/dL Urine Protein (Negative) Ur Leukocyte Esterase (Negative) Urine WBC (0-5) /hpf Urine WBC Clumps (None) /hpf Urine Bacteria (None) /hpf Hyaline Casts (0-2) /lpf Urine Mucus (None) /hpf Microbiology - Last 24 Hours (Table) 01/10/22 20:30 Blood Culture - Preliminary Blood No Growth after 24 hours Assessment and Plan Assessment: Impression: Acute COVID-19 infection Left lower lobe atelectasis, doubt infiltrate Acute kidney injury Mildly elevated troponin Type 2 diabetes Benign essential hypertension Dyslipidemia History of CVA/TIA Recommendation: Continue present supportive care measures Continue COVID-19 cocktail Continue DVT prophylaxis Consider discharge planning in the next 24 hours. No need for steroids. Time with Patient: Less than 30
--- NOTE | 2022-01-12 22:15 | P.PN ---
Subjective This is a pleasant 86 years old male with past medical history of hypertension, hyperlipidemia, diabetes mellitus, CVA/TIA. Patient is tested positive for covid recently within days, now he Presents with dyspnea for the last 2 days. When I saw the patient in room 376 [facility] he was sitting in chair, dressed up in his casual clothes, he was eating his breakfast with good appetite. He is on 3 L oxygen per minute. Patient denies being on oxygen at home. On admission he was placed on BiPAP Patient denies any chest pain. No abdominal pain or vomiting. No urinary complaints. No fever. He denies smoking, alcohol or illicit drugs He is saturating 91% on room air on admission. Currently he is saturating 95% to 97% on 2 L oxygen Labs reviewed, hemoglobin 12.1, rest of CBC, INR are unremarkable. with creatinine 1.6. Slightly up D-dimer 0.64 but it when adjusted for age. Will be within the reference range Elevated troponin 1.1. schaeffer virus detected EKG showing atrial fibrillation with rate of 93 Chest x-ray: There is some minimal left lower lobe pneumonia Emergency room patient was started on Zithromax and ceftriaxone and normal saline and admitted to the hospital with pulmonary consult 01/12/2022 Patient is with not much dyspnea at rest. No other significant complaints. He is mildly tachypneic. Repeat chest x-ray showed a stable left lower lobe infiltrate, most likely this is atelectasis versus from previous infection. Pulmonary already on the case. No need for systemic antibiotic as patient is afebrile with no leukocytosis. No strong evidence of infection and antibiotics will have more harm than benefits. His Covid infection is without pneumonia or hypoxia and he is On vitamin C, D and zinc. Glucose is controlled with metformin and glipizide. Hemoglobin A1c is 6.6. Pro-calcitonin is negative at 0.09. Creatinine down to 1.2. IV fluids was stopped. Community Engagement Leader on the cage for A. fib. The last count 200-300. We'll keep monitor Possible discharge in 24-48 hours Objective - Vital Signs Vital signs: Vital Signs Temp 98.0 F 01/12/22 08:00 Pulse 69 01/12/22 08:00 Resp 18 01/12/22 08:00 BP 134/67 01/12/22 08:00 Pulse Ox 98 01/12/22 08:00 FiO2 Intake & Output 01/11/22 01/12/22 01/12/22 18:59 06:59 18:59 Intake Total 358 120 Balance 358 120 Weight 74.843 kg Intake: Oral 358 120 Other: Voiding Method Toilet Toilet # Voids 3 2 - Exam GENERAL: The patient is alert and oriented x3, not in any acute distress. Well developed, well nourished. HEENT: Pupils are round and equally reacting to light. EOMI. No scleral icterus. No conjunctival pallor. Normocephalic, atraumatic. No pharyngeal erythema. No thyromegaly. CARDIOVASCULAR: S1 and S2 present. No murmurs, rubs, or gallops. PULMONARY: Chest is clear to auscultation, no wheezing or crackles. ABDOMEN: Soft, nontender, nondistended, normoactive bowel sounds. No palpable organomegaly. MUSCULOSKELETAL: No joint swelling or deformity. EXTREMITIES: No cyanosis, clubbing, or pedal edema. NEUROLOGICAL: Gross neurological examination did not reveal any focal deficits. SKIN: No rashes. no petechiae. - Labs CBC & Chem 7: 01/12/22 08:41 01/12/22 08:41 Labs: Abnormal Lab Results - Last 24 Hours (Table) 01/11/22 01/11/22 01/11/22 Range/Units 10:56 10:56 10:56 RBC (4.30-5.90) m/uL Hgb (13.0-17.5) gm/dL MCHC (31.0-37.0) g/dL Lymphocytes # (1.0-4.8) k/uL D-Dimer 0.82 H (<0.60) mg/L FEU Potassium 5.5 H (3.5-5.1) mmol/L Carbon Dioxide (22-30) mmol/L BUN 54 H (9-20) mg/dL Creatinine 1.30 H (0.66-1.25) mg/dL Glucose 262 H (74-99) mg/dL POC Glucose (mg/dL) (70-110) mg/dL Hemoglobin A1c 6.6 H (0.0-6.0) % C-Reactive Protein 3.3 H (<1.0) mg/dL Urine Protein (Negative) Ur Leukocyte Esterase (Negative) Urine WBC (0-5) /hpf Urine WBC Clumps (None) /hpf Urine Bacteria (None) /hpf Hyaline Casts (0-2) /lpf Urine Mucus (None) /hpf 01/11/22 01/11/22 01/11/22 Range/Units 11:48 16:46 20:24 RBC (4.30-5.90) m/uL Hgb (13.0-17.5) gm/dL MCHC (31.0-37.0) g/dL Lymphocytes # (1.0-4.8) k/uL D-Dimer (<0.60) mg/L FEU Potassium (3.5-5.1) mmol/L Carbon Dioxide (22-30) mmol/L BUN (9-20) mg/dL Creatinine (0.66-1.25) mg/dL Glucose (74-99) mg/dL POC Glucose (mg/dL) 262 H 339 H 316 H (70-110) mg/dL Hemoglobin A1c (0.0-6.0) % C-Reactive Protein (<1.0) mg/dL Urine Protein (Negative) Ur Leukocyte Esterase (Negative) Urine WBC (0-5) /hpf Urine WBC Clumps (None) /hpf Urine Bacteria (None) /hpf Hyaline Casts (0-2) /lpf Urine Mucus (None) /hpf 01/12/22 01/12/22 01/12/22 Range/Units 03:53 06:06 08:41 RBC 4.02 L (4.30-5.90) m/uL Hgb 12.0 L (13.0-17.5) gm/dL MCHC 30.0 L (31.0-37.0) g/dL Lymphocytes # 0.8 L (1.0-4.8) k/uL D-Dimer (<0.60) mg/L FEU Potassium (3.5-5.1) mmol/L Carbon Dioxide (22-30) mmol/L BUN (9-20) mg/dL Creatinine (0.66-1.25) mg/dL Glucose (74-99) mg/dL POC Glucose (mg/dL) 224 H (70-110) mg/dL Hemoglobin A1c (0.0-6.0) % C-Reactive Protein (<1.0) mg/dL Urine Protein 1+ H (Negative) Ur Leukocyte Esterase Small H (Negative) Urine WBC 7 H (0-5) /hpf Urine WBC Clumps Rare H (None) /hpf Urine Bacteria Rare H (None) /hpf Hyaline Casts 23 H (0-2) /lpf Urine Mucus Rare H (None) /hpf 01/12/22 Range/Units 08:41 RBC (4.30-5.90) m/uL Hgb (13.0-17.5) gm/dL MCHC (31.0-37.0) g/dL Lymphocytes # (1.0-4.8) k/uL D-Dimer (<0.60) mg/L FEU Potassium (3.5-5.1) mmol/L Carbon Dioxide 31 H (22-30) mmol/L BUN 62 H (9-20) mg/dL Creatinine 1.28 H (0.66-1.25) mg/dL Glucose 141 H (74-99) mg/dL POC Glucose (mg/dL) (70-110) mg/dL Hemoglobin A1c (0.0-6.0) % C-Reactive Protein (<1.0) mg/dL Urine Protein (Negative) Ur Leukocyte Esterase (Negative) Urine WBC (0-5) /hpf Urine WBC Clumps (None) /hpf Urine Bacteria (None) /hpf Hyaline Casts (0-2) /lpf Urine Mucus (None) /hpf Microbiology - Last 24 Hours (Table) 01/10/22 20:30 Blood Culture - Preliminary Blood No Growth after 24 hours Assessment and Plan Assessment: Acute kidney injury Acute covid infection . Without pneumonia or hypoxia Possible community-acquired left lower lobe pneumonia Mildly elevated troponin mild acute hypoxic respiratory failure Atrial fibrillation with controlled rate Diabetes mellitus Hypertension Hyperlipidemia History of CVA/TIA Plan: This is a pleasant 86 years old male who presents with covid infectino , possible pneumonia, KENNETH and high troponin No need for antibiotics as risks more than benefits pulmonary consult Start vitamin D, C and zinc Cardiology consult Discontinue IV fluids Check urinalysis and bladder scan h aspirin Labs and medication were reviewed.. Continue same treatment. Continue with symptomatic treatment. Resume home medication. Monitor lytes and vitals. DVT and GI prophylaxis. Further recommendations as per clinical course of the patient DVT prophylaxis: Subcutaneous heparin GI Prophylaxis: Pepcid PT/OT: Pending Prognosis is guarded A
[2022-01-13 06:06] LABS: Glucose,Whole Blood 182 mg/dL (70-110)
[2022-01-13] MEDS: INSULIN ASPART (NovoLOG) 100 UNIT/ML VIAL SQ SCH ×2 (06:29→12:22)
[2022-01-13 08:27] VITALS: PULSE 81
[2022-01-13] MEDS: amLODIPine 5 MG TAB PO SCH (08:29)
[2022-01-13] MEDS: ATORVASTATIN 10 MG TAB PO SCH (08:29)
[2022-01-13] MEDS: CHOLECALCIFEROL 25 MCG (1000 IU) TABLET PO SCH (08:29)
[2022-01-13] MEDS: LISINOPRIL-HCTZ 20-25 MG 1 EACH TAB PO SCH (08:29)
[2022-01-13] MEDS: ASCORBIC ACID 500 MG TAB PO SCH (08:29)
[2022-01-13] MEDS: ENOXAPARIN 40 MG/0.4 ML SYRINGE SQ SCH (08:29)
[2022-01-13] MEDS: ZINC SULFATE 220 MG CAP PO SCH (08:29)
[2022-01-13] MEDS: METOPROLOL TARTRATE 25 MG TAB PO SCH (08:29)
[2022-01-13] MEDS: metFORMIN 500 MG TAB PO SCH (08:29)
[2022-01-13 09:53] LABS: Calcium 8.8 mg/dL (8.4-10.2); Magnesium 1.8 mg/dL (1.6-2.3); Potassium 4.6 mmol/L (3.5-5.1)
--- NOTE | 2022-01-13 10:30 | CA ---
Transthoracic Echo Report Name: Mark Coleman Age: 86 Gender: M : 1935 Exam Date: 01/12/2022 14:19 Exam Location: [facility] Ht (in): 70 Wt (lb): 165 Ordering Physician: Bear Tavera MD Attending/Referring Phys: Qual Research Manager Sydney Mcnally RDCS Procedure CPT: Indications: Abnormal troponins Cardiac Hx: Limited study Technical Quality: Good Contrast 1: Total Dose (mL): Contrast 2: Total Dose (mL): MEASUREMENTS (Male / Female) Normal Values DOPPLER AV Peak Velocity 138.5 cm/s AV Peak Gradient 7.7 mmHg TR Peak Velocity 336.3 cm/s TR Peak Gradient 45.2 mmHg Right Ventricular Systolic Press 50.2 mmHg FINDINGS Left Ventricle Limited study. Left ventricular ejection fraction is estimated at 55-60 %. Normal left ventricular wall motion. Right Ventricle Moderate pulmonary hypertension. Right Atrium Left Atrium Mitral Valve Aortic Valve Tricuspid Valve Mild tricuspid regurgitation. Pulmonic Valve Pericardium Normal pericardium. Aorta CONCLUSIONS Normal LV size and systolic function with moderate pulmonary hypertension. No pericardial effusion Previewed by: Dr. Lenora Howard MD (Electronically Signed) Final Date: 13 January 2022 10:29
--- NOTE | 2022-01-13 10:34 | P.PN ---
Subjective Progress Note Date: 01/13/22 CHIEF COMPLAINT: Arrhythmia HISTORY OF PRESENT ILLNESS: This is a 86-year-old male who was admitted to the hospital secondary to Covid. Case discussed with patient's nurse who states the patient has had no complaint of chest pain or pressure. He denied shortness of breath. Telemetry revealed sinus mechanism. Vital signs are stable. 01/13/2022 Patient remains hospitalized on 3S. Patient denies chest pain or pressure. Denies SOB. Telemetry reveals sinus mechanism with PACs. Vital signs are stable. Echo reveals EF 55-60% with moderate pulmonary hypertension. PHYSICAL EXAM: Thorough physical exam not completed secondary to limited evaluation/examination due to Covid19 ASSESSMENT: Acute COVID-19 infection, left lower lobe pneumonia Cardiac arrhythmia, frequent PACs History hypertension History of diabetes mellitus History of dyslipidemia PLAN: 2D limited echo ordered. Await results. Continue current cardiac medications Continue telemetry monitoring Stable from a cardiac standpoint Nurse practitioner note has been reviewed by physician. Signing provider agrees with the documented findings, assessment, and plan of care. Objective - Vital Signs Vital signs: Vital Signs Temp 98.2 F 01/13/22 08:26 Pulse 81 01/13/22 08:26 Resp 20 01/13/22 08:26 BP 137/65 01/13/22 08:26 Pulse Ox 94 L 01/13/22 08:26 FiO2 Intake & Output 01/12/22 01/13/22 01/13/22 18:59 06:59 18:59 Intake Total 120 Balance 120 Intake: Oral 120 Other: Voiding Method Toilet # Voids 3 # Bowel Movements 1 - Labs CBC & Chem 7: 01/12/22 08:41 01/13/22 09:00 Labs: Abnormal Lab Results - Last 24 Hours (Table) 01/12/22 01/12/22 01/12/22 Range/Units 12:07 16:51 20:25 Sodium (137-145) mmol/L Carbon Dioxide (22-30) mmol/L BUN (9-20) mg/dL Glucose (74-99) mg/dL POC Glucose (mg/dL) 122 H 169 H 172 H (70-110) mg/dL 01/13/22 01/13/22 Range/Units 06:05 09:00 Sodium 146 H (137-145) mmol/L Carbon Dioxide 31 H (22-30) mmol/L BUN 40 H (9-20) mg/dL Glucose 246 H (74-99) mg/dL POC Glucose (mg/dL) 182 H (70-110) mg/dL Microbiology - Last 24 Hours (Table) 01/10/22 20:30 Blood Culture - Preliminary Blood No Growth after 48 hours
[2022-01-13 10:47] VITALS: RESP 18
--- NOTE | 2022-01-13 11:31 | P.PN ---
Subjective This is a pleasant 86 years old male with past medical history of hypertension, hyperlipidemia, diabetes mellitus, CVA/TIA. Patient is tested positive for covid recently within days, now he Presents with dyspnea for the last 2 days. When I saw the patient in room 376 Pam he was sitting in chair, dressed up in his casual clothes, he was eating his breakfast with good appetite. He is on 3 L oxygen per minute. Patient denies being on oxygen at home. On admission he was placed on BiPAP Patient denies any chest pain. No abdominal pain or vomiting. No urinary complaints. No fever. He denies smoking, alcohol or illicit drugs He is saturating 91% on room air on admission. Currently he is saturating 95% to 97% on 2 L oxygen Labs reviewed, hemoglobin 12.1, rest of CBC, INR are unremarkable. with creatinine 1.6. Slightly up D-dimer 0.64 but it when adjusted for age. Will be within the reference range Elevated troponin 1.1. schaeffer virus detected EKG showing atrial fibrillation with rate of 93 Chest x-ray: There is some minimal left lower lobe pneumonia Emergency room patient was started on Zithromax and ceftriaxone and normal saline and admitted to the hospital with pulmonary consult 01/12/2022 Patient is with not much dyspnea at rest. No other significant complaints. He is mildly tachypneic. Repeat chest x-ray showed a stable left lower lobe infiltrate, most likely this is atelectasis versus from previous infection. Pulmonary already on the case. No need for systemic antibiotic as patient is afebrile with no leukocytosis. No strong evidence of infection and antibiotics will have more harm than benefits. His Covid infection is without pneumonia or hypoxia and he is On vitamin C, D and zinc. Glucose is controlled with metformin and glipizide. Hemoglobin A1c is 6.6. Pro-calcitonin is negative at 0.09. Creatinine down to 1.2. IV fluids was stopped. Alley Tender on the cage for A. fib. The last count 200-300. We'll keep monitor Possible discharge in 24-48 hours 01/13/2022 Patient was doing well this morning and he was calm in bed. States that his dyspnea is improving and denies any other specific abnormality. However after around patient after she was while he was in the bathroom and started on IV line, he was saturating 84% on room air when he pulled his nasal cannula line. His creatinine is 1.0 and he is off IV fluids. He is on 2 L oxygen via nasal cannula. Hemoglobin A1c 6.6. Remotecalcitonin is normal 0.09. Chest x-rays showing possible left lower lobe infiltrate which is thought atelectasis more than infiltrate. No change from yesterday. Glucose is better controlled now 160-180. Creatinine 1.0 on sodium 146 Objective - Vital Signs Vital signs: Vital Signs Temp 98.2 F 01/13/22 08:26 Pulse 81 01/13/22 08:26 Resp 20 01/13/22 08:26 BP 137/65 01/13/22 08:26 Pulse Ox 94 L 01/13/22 08:26 FiO2 Intake & Output 01/12/22 01/13/22 01/13/22 18:59 06:59 18:59 Intake Total 120 Balance 120 Intake: Oral 120 Other: Voiding Method Toilet # Voids 3 # Bowel Movements 1 - Exam GENERAL: The patient is alert and oriented x3, not in any acute distress. Well developed, well nourished. HEENT: Pupils are round and equally reacting to light. EOMI. No scleral icterus. No conjunctival pallor. Normocephalic, atraumatic. No pharyngeal erythema. No thyromegaly. CARDIOVASCULAR: S1 and S2 present. No murmurs, rubs, or gallops. PULMONARY: Chest is clear to auscultation, no wheezing or crackles. ABDOMEN: Soft, nontender, nondistended, normoactive bowel sounds. No palpable organomegaly. MUSCULOSKELETAL: No joint swelling or deformity. EXTREMITIES: No cyanosis, clubbing, or pedal edema. NEUROLOGICAL: Gross neurological examination did not reveal any focal deficits. SKIN: No rashes. no petechiae. - Labs CBC & Chem 7: 01/12/22 08:41 01/13/22 09:00 Labs: Abnormal Lab Results - Last 24 Hours (Table) 01/12/22 01/12/22 01/12/22 Range/Units 12:07 16:51 20:25 Sodium (137-145) mmol/L Carbon Dioxide (22-30) mmol/L BUN (9-20) mg/dL Glucose (74-99) mg/dL POC Glucose (mg/dL) 122 H 169 H 172 H (70-110) mg/dL 01/13/22 01/13/22 Range/Units 06:05 09:00 Sodium 146 H (137-145) mmol/L Carbon Dioxide 31 H (22-30) mmol/L BUN 40 H (9-20) mg/dL Glucose 246 H (74-99) mg/dL POC Glucose (mg/dL) 182 H (70-110) mg/dL Microbiology - Last 24 Hours (Table) 01/10/22 20:30 Blood Culture - Preliminary Blood No Growth after 48 hours Assessment and Plan Assessment: Acute kidney injury Acute covid infection . Without pneumonia or hypoxia Possible community-acquired left lower lobe pneumonia Mildly elevated troponin mild acute hypoxic respiratory failure Atrial fibrillation with controlled rate Diabetes mellitus Hypertension Hyperlipidemia History of CVA/TIA Plan: This is a pleasant 86 years old male who presents with covid infectino , poss ible pneumonia, KENNETH and high troponin No need for antibiotics as risks more than benefits pulmonary consult Start vitamin D, C and zinc Cardiology consult Discontinue IV fluids Check urinalysis and bladder scan h aspirin Labs and medication were reviewed.. Continue same treatment. Continue with symptomatic treatment. Resume home medication. Monitor lytes and vitals. DVT and GI prophylaxis. Further recommendations as per clinical course of the patient DVT prophylaxis: Subcutaneous heparin GI Prophylaxis: Pepcid PT/OT: Pending Prognosis is guarded A
[2022-01-13 11:44] LABS: Glucose,Whole Blood 185 mg/dL (70-110)
[2022-01-13 12:21] VITALS: BP 169/74; TEMP 98.6
--- NOTE | 2022-01-13 14:07 | P.PN ---
Subjective Progress Note Date: 01/13/22 Principal diagnosis: Acute COVID-19 infection, left lower lobe infiltrate, possible pneumonia could be related to COVID-19 infection Patient was reevaluated today on 01/12/22, patient continues to have some cough, slight shortness of breath, feeling a bit better compared to how he felt yesterday upon admission. Patient is on 2 L nasal cannula, O2 sats is 96%. WBC count today is 7.4 hemoglobin is 12. Electrolytes are normal. However his BUN is 62 creatinine 1.28. Chest x-ray continues to show persistent left basilar opacity consistent with atelectasis or infiltrate, no change from the admission chest x-ray. Blood cultures remain negative so far Reevaluated today on 01/13/22, patient is on 2 L nasal cannula, he is doing great, relatively asymptomatic. Patient would like to be discharged home. He is not in any distress. Labs from today were basically unremarkable. Pro-calcitonin level was normal. Objective - Vital Signs Vital signs: Vital Signs Temp 98.6 F 01/13/22 12:19 Pulse 81 01/13/22 08:26 Resp 18 01/13/22 12:19 BP 169/74 01/13/22 12:19 Pulse Ox 94 L 01/13/22 12:19 FiO2 Intake & Output 01/12/22 01/13/22 01/13/22 18:59 06:59 18:59 Intake Total 120 Output Total 140 Balance 120 -140 Intake: Oral 120 Output: Post Void Residual 140 Other: Voiding Method Toilet # Voids 3 # Bowel Movements 1 - Exam Physical Exam: Revealed an 86-year-old white male on 2 L nasal cannula, in no distress. Head: Atraumatic, normocephalic. HEENT:[Neck is supple.] [No neck masses.] [No thyromegaly.] [No JVD.] Chest: [Clear throughout, no crackles, no rhonchi, no wheezes.] Cardiac Exam: [Normal S1 and S2, no S3 gallop, no murmur.] Abdomen: [Soft, nontender, no megaly, no rebound, no guarding, normal bowel sounds.] Extremities: [No clubbing, no edema, no cyanosis .] Neurological Exam: [No focal neurologic deficit.] Alert oriented 3. Psychiatric: Normal mood, affect and normal mental status examination. Skin: No rashes. Musculoskeletal: No deformities and no limitation in range of motion - Labs CBC & Chem 7: 01/12/22 08:41 01/13/22 09:00 Labs: Abnormal Lab Results - Last 24 Hours (Table) 01/12/22 01/12/22 01/13/22 Range/Units 16:51 20:25 06:05 Sodium (137-145) mmol/L Carbon Dioxide (22-30) mmol/L BUN (9-20) mg/dL Glucose (74-99) mg/dL POC Glucose (mg/dL) 169 H 172 H 182 H (70-110) mg/dL 01/13/22 01/13/22 Range/Units 09:00 11:42 Sodium 146 H (137-145) mmol/L Carbon Dioxide 31 H (22-30) mmol/L BUN 40 H (9-20) mg/dL Glucose 246 H (74-99) mg/dL POC Glucose (mg/dL) 185 H (70-110) mg/dL Microbiology - Last 24 Hours (Table) 01/10/22 20:30 Blood Culture - Preliminary Blood No Growth after 48 hours Assessment and Plan Assessment: Impression: Acute COVID-19 infection Left lower lobe atelectasis, doubt infiltrate, patient had normal Procrit level. Acute kidney injury Mildly elevated troponin Type 2 diabetes Benign essential hypertension Dyslipidemia History of CVA/TIA Recommendation: We'll clear the patient to be discharged home on oxygen at 2 L. Continue COVID-19 cocktail, orally. Cleared for discharge from our perspective. Time with Patient: Less than 30
[2022-01-13 14:15] LABS: Appearance,Urine Clear (Clear); Bilirubin,Urine Negative (Negative); Blood,Urine Trace (Negative); Color,Urine Light Yellow; Glucose,Urine (UA) Negative (Negative); Ketones,Urine Negative (Negative); Leukocyte Esterase,Urine Small (Negative); Mucus,Urine Rare /hpf; Nitrite,Urine Negative (Negative); PH, Urine 5.5 (5.0-8.0); Protein,Urine 2+ (Negative); RBC,Urine <1 /hpf (0-5); Specific Gravity,Urine 1.015 (1.001-1.035); Urobilinogen,Urine <2.0 mg/dL (<2.0); WBC,Urine 6 /hpf (0-5)
[2022-01-13] MEDS ORDERED: FAMOTIDINE 20 MG TAB PO SCH (21:00)
== END 2022-01-13 16:40 | disposition home or self-care (01) ==
LOC: EC 18:32 → 4SSUR 19:55 → INTOOBSV 19:55 → 3SCARD 21:23 → UNDODISIN 01-13 16:40
PROVIDERS: ADMIT Internal Medicine; ATTEND Internal Medicine
PROC: 5A09457 Assistance with Respiratory Ventilation, 24-96 Consecutive Hours, Continuous Positive Airway Pressure (ICD-10-PCS; principal; 2022-01-10)
DX: U07.1 COVID-19 (principal); J96.01 Acute respiratory failure with hypoxia; N17.9 Acute kidney failure, unspecified; R79.89 Other specified abnormal findings of blood chemistry; I48.91 Unspecified atrial fibrillation; I49.1 Atrial premature depolarization; I27.20 Pulmonary hypertension, unspecified; I10 Essential (primary) hypertension; E11.9 Type 2 diabetes mellitus without complications; E78.5 Hyperlipidemia, unspecified; Z79.84 Long term (current) use of oral hypoglycemic drugs; Z79.899 Other long term (current) drug therapy; Z86.73 Personal history of transient ischemic attack (TIA), and cerebral infarction without residual deficits; Z90.49 Acquired absence of other specified parts of digestive tract; Z87.891 Personal history of nicotine dependence; Z28.310 Unvaccinated for COVID-19
CPT/HCPCS: 96376; 96372 ×3; 96375 ×2; 96365; 96366; 99285; 36415; 94640; 93005; 93308; 97116; 97162; 97530; 97166; 85379 ×2; 80053; 80048 ×3; 82728; 83605; 83615; 83735 ×3; 84484; 85025 ×2; 85610; 85730; 86140; 81001 ×2; 87040; 83036; 84145; 87635; 71045; 71046; G0378 ×5; J1100; J0456; J1650 ×3; J0696

== ENCOUNTER 2022-03-13 09:42 | Inpatient (IN) | payer MEDICARE ==
--- NOTE | 2022-03-13 12:21 | XR ---
EXAMINATION TYPE: XR chest 2V DATE OF EXAM: 03/13/2022 10:10 AM COMPARISON: Chest radiographs from 01/12/2022 TECHNIQUE: XR chest 2V Frontal and lateral views of the chest. CLINICAL INDICATION: SOB, low O2 sats FINDINGS: Lungs/Pleura: Suspected basilar narrowing pleural effusions with blunting of costophrenic angles post eriorly. Chronic interstitial lung markings are present.. There is no evidence of focal consolidation , or pneumothorax. Pulmonary vascularity: Unremarkable. Heart/mediastinum: Cardiomediastinal silhouette is prominent in size. Musculoskeletal: Degenerative changes of the shoulder joints. Remote left posterior rib fractures. IMPRESSION: 1. Scattered opacities increased from prior. Correlate for pneumonia versus congestive heart failure . 2. Bibasilar pleural effusions
[2022-03-13] MEDS ORDERED: PIPERACILLIN-TAZOBACTAM 3.375 GM in SODIUM CHLORIDE 0.9% 100 ML IVPB STA (13:14)
[2022-03-13] MEDS ORDERED: PNEUMONIA PROTOCOL UTILIZED 1 EACH MISC PO PRN (13:14)
[2022-03-13 15:00] LABS: Glucose,Whole Blood 267 mg/dL (70-110)
[2022-03-13 18:20] LABS: Glucose,Whole Blood 278 mg/dL (70-110)
[2022-03-13] MEDS ORDERED: DEXTROSE 50% SYRINGE 50 ML IVP PRN ×2 (18:30)
[2022-03-13] MEDS: methylPREDNISolone SOD SUCCI 125 MG/2 ML VIAL IV SCH (18:46)
[2022-03-13] MEDS: INSULIN ASPART (NovoLOG) 100 UNIT/ML VIAL SQ SCH ×2 (18:47→20:43)
[2022-03-13 18:57] LABS: Basophils % (A) 0 %; Eosinophils # (A) 0.1 k/uL (0-0.7); Eosinophils % (A) 2 %; HCT 27.3 % (39.0-53.0); Hypochromasia Slight; Lymphocytes # (A) 0.3 k/uL (1.0-4.8); Lymphocytes % (A) 5 %; MCH 31.1 pg (25.0-35.0); MCV 96.9 fL (80.0-100.0); Monocytes # (A) 0.4 k/uL (0-1.0); Monocytes % (A) 7 %; Neutrophils # (A) 4.8 k/uL (1.3-7.7); Neutrophils % (A) 83 %; Platelet Count 205 k/uL (150-450); RBC 2.82 m/uL (4.30-5.90); RDW 13.7 % (11.5-15.5); WBC 5.8 k/uL (3.8-10.6)
[2022-03-13 18:59] LABS: HGB 8.8 gm/dL (13.0-17.5)
--- NOTE | 2022-03-13 19:02 | HP ---
HISTORY AND PHYSICAL CHIEF COMPLAINT: Weakness and cough. HISTORY OF PRESENT ILLNESS: This is an 86-year-old gentleman with a past medical history of diabetes mellitus, hypertension, and hyperlipidemia, who was complaining of increasing shortness of breath and cough also. The patient was extremely tired and weak. The patient came to [facility], which I reviewed personally showed bilateral shadows, possibly indicating bilateral pneumonia. The patient was admitted with initiation of broad- spectrum IV antibiotics. Blood sugar is also elevated. Other labs are not available. The patient was admitted in downtime. PAST MEDICAL HISTORY: Reviewed and includes diabetes mellitus, hypertension, and hyperlipidemia. Rest of the history reviewed. Chart reviewed. HOME MEDICATIONS: Reviewed and include: 1. Tylenol. 2. DuoNeb. Doses and rest of the medications noted. ALLERGIES: None. FAMILY HISTORY: No history of heart disease or strokes in the family. SOCIAL HISTORY: Previous history of smoking. REVIEW OF SYSTEMS: Fourteen-point review of systems is negative except as mentioned earlier. PHYSICAL EXAMINATION: VITAL SIGNS: Pulse 67, blood pressure 125/60, respirations 18. HEENT: Conjunctivae are normal. NECK: No jugular venous distention. CARDIOVASCULAR: S1 and S2. RESPIRATORY: Breath sounds diminished at the bases. Few scattered rhonchi and crackles. ABDOMEN: Soft and nontender. LEGS: No edema. No swelling. NERVOUS SYSTEM: No focal deficits. SKIN: No rash. JOINTS: No active LABORATORY DATA: Reviewed. Glucose 267. ASSESSMENT: 1. Bilateral pneumonia, possibly aspiration. 2. Diabetes, type 2. 3. Chronic obstructive pulmonary disease. 4. Hypertension. 5. Hyperlipidemia. 6. History of cerebrovascular accident and transient ischemic attack. RECOMMENDATIONS: This is an 86-year-old gentleman, who presented with multiple complex medical history. We will monitor the patient closely. We will initiate broad-spectrum IV antibiotics and also bronchodilators and steroids. Resume the home medications. Pulmonary and Infectious Disease evaluation. Guarded prognosis. Discussed with the patient, who understands. See orders for the details. MMODL / IJN: [id number] / MTDD
[2022-03-13 19:04] LABS: INR 0.9 (<1.2); Partial Thromboplastin Time 19.2 sec (22.0-30.0); Prothrombin Time 9.6 sec (9.0-12.0)
[2022-03-13] MEDS: SYMBICORT 160-4.5 MCG INHALER INHALATION SCH (19:15)
[2022-03-13 19:46] LABS: Albumin 2.9 g/dL (3.5-5.0); Calcium 7.8 mg/dL (8.4-10.2); Potassium 4.7 mmol/L (3.5-5.1); Total Bilirubin 0.3 mg/dL (0.2-1.3); Total Protein 5.3 g/dL (6.3-8.2)
[2022-03-13 19:53] LABS: Glucose,Whole Blood 293 mg/dL (70-110)
[2022-03-13] MEDS ORDERED: IPRATROPIUM-ALBUTEROL 3 ML NEB INHALATION SCH (20:00)
[2022-03-13] MEDS ORDERED: IPRATROPIUM-ALBUTEROL 3 ML NEB INHALATION PRN (20:25)
[2022-03-13] MEDS: HEPARIN SODIUM,PORCINE/PF 5,000 UNIT/0.5 ML SYRINGE SQ SCH (20:43)
[2022-03-13] MEDS ORDERED: INSULIN ASPART (NovoLOG) 100 UNIT/ML VIAL SQ SCH (21:00)
[2022-03-13] MEDS ORDERED: INSULIN DETEMIR (LEVEMIR) 100 UNIT/ML SYR SQ SCH (21:00)
[2022-03-14] MEDS: PIPERACILLIN-TAZOBACTAM 3.375 GM in SODIUM CHLORIDE 0.9% 100 ML IVPB SCH ×3 (00:46→17:20)
[2022-03-14] MEDS: methylPREDNISolone SOD SUCCI 125 MG/2 ML VIAL IV SCH ×4 (00:46→17:21)
[2022-03-14] MEDS: INSULIN ASPART (NovoLOG) 100 UNIT/ML VIAL SQ SCH ×4 (06:37→20:37)
[2022-03-14 06:46] LABS: Glucose,Whole Blood 245 mg/dL (70-110)
--- NOTE | 2022-03-14 07:11 | XR ---
EXAMINATION TYPE: XR chest 2V DATE OF EXAM: 03/14/2022 6:56 AM COMPARISON: Chest radiograph from one day prior. TECHNIQUE: XR chest 2V Frontal and lateral views of the chest. CLINICAL INDICATION:Male, 86 years old with history of pneumonia; FINDINGS: Lungs/Pleura: Similar airspace opacities predominantly in the lung bases. Possible with pleural effus ions bilaterally. There is no evidence of focal consolidation, or pneumothorax. Pulmonary vascularity: Unremarkable. Heart/mediastinum: Cardiomediastinal silhouette is unremarkable. Musculoskeletal: No acute osseous pathology. IMPRESSION: Similar bibasilar airspace opacities possible layering pleural effusions left greater than right.
[2022-03-14] MEDS ORDERED: PANTOPRAZOLE 40 MG TABLET PO SCH (07:30)
[2022-03-14] MEDS: HEPARIN SODIUM,PORCINE/PF 5,000 UNIT/0.5 ML SYRINGE SQ SCH ×2 (08:05→20:37)
[2022-03-14] MEDS: MAGNESIUM HYDROXIDE 2,400 MG/10 ML CUP PO SCH (08:05)
[2022-03-14] MEDS: TAMSULOSIN 0.4 MG CAP.ER.24H PO SCH (08:06)
[2022-03-14] MEDS: AZITHROMYCIN 500 MG in SODIUM CHLORIDE 0.9% 250 ML IVPB SCH (08:06)
[2022-03-14] MEDS: MAGNESIUM OXIDE 400 MG TAB PO SCH (08:06)
[2022-03-14] MEDS: PANTOPRAZOLE 40 MG TABLET PO SCH (08:06)
[2022-03-14] MEDS: METOPROLOL SUCCINATE (ER) 50 MG TAB.ER.24H PO SCH (08:06)
[2022-03-14] MEDS: POTASSIUM CHLORIDE ER 10 MEQ TAB.ER.PRT PO SCH (08:06)
[2022-03-14] MEDS: IPRATROPIUM-ALBUTEROL 3 ML NEB INHALATION SCH ×4 (09:26→20:47)
[2022-03-14] MEDS: SYMBICORT 160-4.5 MCG INHALER INHALATION SCH ×2 (09:26→20:47)
[2022-03-14 11:29] LABS: Glucose,Whole Blood 385 mg/dL (70-110)
--- NOTE | 2022-03-14 11:54 | P.CNPUL ---
History of Present Illness Consult date: 03/14/22 Requesting physician: Tramaine Ford Reason for consult: dyspnea, cough, COPD, hypoxemia, pneumonia, pleural effusion, abnormal CXR/CT Chief complaint: Shortness of breath, cough, chest congestion. History of present illness: Pulmonary consult dated 03/14/2022. 86-year-old male, who is a very poor historian. He was seen in room 367. The patient apparently has a history of COPD from previous tobacco use, diabetes, hypertension, gastroesophageal reflux disease, hyperlipidemia, atrial fibrilla tion with RVR, acute kidney injury, and CVA. The patient was hospitalized in January of this year, with episode of coronavirus infection, without coronavirus associated pneumonia. The patient presented to the hospital on March 13, with increasing shortness of breath, fatigue, and weakness. A chest x-ray showed bilateral pleural effusions. He was admitted with a diagnosis of possible pneumonia. The patient himself is not a particularly good historian. Currently, he's on 4 L of oxygen. He's not receiving any IV fluids. I did order a pro-calcitonin level and an N-terminal proBNP. He's currently on Zosyn and azithromycin. Laboratory data from March 13 shows a white count of 5.8, hemoglobin 8.8, hematocrit 27.3, and a normal platelet count. Sodium 137, potassium 4.7, chlorides 99, CO2 31, BUN 56, creatinine 1.28. Sugar was 385 and his troponin was 0.158. The patient's N-terminal proBNP is 23,000. Pro- calcitonin level is currently pending. Chest x-rays consistent with bilateral pleural effusions, and cephalization, most consistent with CHF, and not pneumonia. Review of Systems REVIEW OF SYSTEMS: CONSTITUTIONAL: Fatigue and weakness NEUROLOGIC: [ Negative.] HEENT: [ Negative.] CARDIAC: [Negative.] PULMONARY: Shortness of breath. GI: [Negative.] : [Negative.] RHEUMATOLOGIC: [ Negative.] IMMUNOLOGIC: [ Negative.] ENDOCRINE: [Negative. ] DERMATOLOGIC: [Negative.] Past Medical History Past Medical History: COPD, CVA/TIA, Diabetes Mellitus, Hyperlipidemia, Hypertension Additional Past Medical History / Comment(s): Patient has a stroke in his 40's. History of Any Multi-Drug Resistant Organisms: None Reported Past Surgical History: Cholecystectomy Past Anesthesia/Blood Transfusion Reactions: No Reported Reaction Past Psychological History: No Psychological Hx Reported Smoking Status: Former smoker Past Alcohol Use History: Occasional Past Drug Use History: None Reported Medications and Allergies Home Medications Medication Instructions Recorded Confirmed Type glipiZIDE [glipiZIDE ER] 5 mg PO DAILY 01/10/22 03/13/22 History Cholecalciferol [Vitamin D3 (25 50 mcg PO DAILY #60 tab 01/13/22 03/13/22 Rx Mcg = 1000 Iu)] Acetaminophen Tab [Tylenol] 650 mg PO Q6H PRN 03/13/22 03/13/22 History Aspirin 81 mg PO DAILY 03/13/22 03/13/22 History Atorvastatin Calcium [Lipitor] 80 mg PO HS 03/13/22 03/13/22 History Clopidogrel [Plavix] 75 mg PO DAILY 03/13/22 03/13/22 History Furosemide [Lasix] 40 mg PO DAILY 03/13/22 03/13/22 History Insulin Glargine,Hum.rec.anlog 8 units SQ HS 03/13/22 03/13/22 History [Insulin Glargine] Insulin Lispro [humaLOG Kwikpen] See Protocol SQ ACHS 03/13/22 03/13/22 History Ipratropium-Albuterol Nebulize 3 ml INHALATION RT-Q6H 03/13/22 03/13/22 History [Duoneb 0.5 mg-3 mg/3 ml Soln] Magnesium Hydroxide [Milk of 2,400 mg PO DAILY 03/13/22 03/13/22 History Magnesia] Magnesium Oxide [Mag-Ox] 400 mg PO DAILY 03/13/22 03/13/22 History Metoprolol Succinate (ER) [Toprol 50 mg PO DAILY 03/13/22 03/13/22 History Xl] Omeprazole [PriLOSEC] 20 mg PO DAILY 03/13/22 03/13/22 History Potassium Chloride ER [K-Dur 10] 10 meq PO DAILY 03/13/22 03/13/22 History Tamsulosin HCl [Flomax] 0.4 mg PO DAILY 03/13/22 03/13/22 History guaiFENesin [guaiFENesin ER] 600 mg PO BID 03/13/22 03/13/22 History hydrALAZINE HCL [Apresoline] 25 mg PO BID 03/13/22 03/13/22 History predniSONE [Deltasone] 40 mg PO DAILY 03/13/22 03/13/22 History Allergies Allergy/AdvReac Type Severity Reaction Status Date / Time No Known Allergies Allergy Verified 03/13/22 12:42 Physical Exam Osteopathic Statement: *. No significant issues noted on an osteopathic structural exam other than those noted in the History and Physical/Consult. Vitals: Vital Signs Temp Pulse Pulse Resp BP BP Pulse Ox 03/14/22 09:38 96 03/14/22 09:29 98 03/14/22 09:26 97 03/14/22 08:03 104 H 18 03/14/22 08:02 98.3 F 104 H 18 110/66 99 03/14/22 04:00 97.8 F 72 18 124/70 100 03/14/22 02:00 18 03/14/22 00:00 98.0 F 78 18 122/69 99 03/13/22 20:00 98.3 F 96 18 112/62 100 03/13/22 19:33 94 03/13/22 19:16 96 03/13/22 17:56 97.9 F 97 18 124/60 97 03/13/22 16:56 98.1 F 89 18 112/63 97 03/13/22 14:14 18 03/13/22 14:13 97.9 F 97 18 124/60 97 03/13/22 13:50 98.7 F 93 16 119/62 98 Intake and Output 03/13/22 03/14/22 03/14/22 23:59 06:59 14:59 Intake Total 128 Output Total 700 Balance -572 Intake: IV 10 Invasive Line 1 10 Oral 118 Output: Urine 700 Other: Voiding Method Indwelling Catheter # Bowel Movements 1 Weight No acute distress, oriented, and a poor historian, currently on 4 L of oxygen. Saturations are 98%. HEENT examination is grossly unremarkable. Neck supple. Full range of motion. No adenopathy thyromegaly or neck vein distention. Cardiovascular examination reveals regular rhythm rate. S1-S2 normal. No S3 or S4. No discernible murmur noted. Heart rate 96 bpm. Heart sounds are distant. Lungs reveal dullness at the bases. Crackles at the bases. Few scattered rhonchi are noted. No wheezes. Abdomen soft bowel sounds are heard. No masses or tenderness. Extremities are intact. No cyanosis clubbing or edema. Skin is without rash or lesion. Neurologic examination is brief but nonfocal. Results - Laboratory Findings CBC and BMP: 03/13/22 09:03 03/13/22 09:03 PT/INR, D-dimer PT 9.6 sec (9.0-12.0) 03/13/22 09:03 INR 0.9 (<1.2) 03/13/22 09:03 Abnormal lab findings: Abnormal Labs 03/13/22 03/13/22 03/13/22 09:03 09:03 09:03 RBC 2.82 L Hgb 8.8 L D Hct 27.3 L Lymphocytes # 0.3 L APTT Carbon Dioxide 31 H BUN 56 H Creatinine 1.28 H Glucose 205 H POC Glucose (mg/dL) Hemoglobin A1c 8.4 H Calcium 7.8 L Troponin I Total Protein 5.3 L Albumin 2.9 L 03/13/22 03/13/22 03/13/22 09:03 09:03 14:59 RBC Hgb Hct Lymphocytes # APTT 19.2 L Carbon Dioxide BUN Creatinine Glucose POC Glucose (mg/dL) 267 H Hemoglobin A1c Calcium Troponin I 0.158 H* Total Protein Albumin 03/13/22 03/13/22 03/14/22 18:18 19:52 06:34 RBC Hgb Hct Lymphocytes # APTT Carbon Dioxide BUN Creatinine Glucose POC Glucose (mg/dL) 278 H 293 H 245 H Hemoglobin A1c Calcium Troponin I Total Protein Albumin 03/14/22 11:27 RBC Hgb Hct Lymphocytes # APTT Carbon Dioxide BUN Creatinine Glucose POC Glucose (mg/dL) 385 H Hemoglobin A1c Calcium Troponin I Total Protein Albumin - Diagnostic Findings Chest x-ray: image reviewed Assessment and Plan Assessment: Shortness of breath, most likely related to fluid overload/CHF. Possible pneumonia, will await pro-calcitonin level. Recent admission, January 2022, for coronavirus infection, without coronavirus associated pneumonia. History of COPD, from previous heavy tobacco use. History of diabetes mellitus. History of hypertension. History of GERD. History of hyperlipidemia. History of atrial fibrillation/RVR. History of acute kidney injury. History of CVA. Plan: Plan dated 03/14/2022. The patient was placed on azithromycin and Zosyn by the ER physician. The patient remains on these antibiotics. In addition, the patient's getting Symbicort, and updrafts with albuterol sulfate and ipratropium bromide. The patient is also getting Solu-Medrol. The patient in my opinion should be getting Lasix. I will added at 40 mg every 12 IV push. Additional recommendations and suggestions are forthcoming. We'll await the pro-calcitonin level. The N-terminal proBNP was quite high at 23,000. The patient also had a mild elevation of troponin level. If not or ready ordered, cardiology should see this patient. Time with Patient: Greater than 30
[2022-03-14 16:27] LABS: Glucose,Whole Blood 364 mg/dL (70-110)
[2022-03-14 20:34] LABS: Glucose,Whole Blood 360 mg/dL (70-110)
[2022-03-14] MEDS: INSULIN DETEMIR (LEVEMIR) 100 UNIT/ML SYR SQ SCH (20:37)
[2022-03-14] MEDS: FUROSEMIDE 10 MG/ML 4 ML VIAL IV SCH (20:37)
--- NOTE | 2022-03-14 22:36 | P.CONS ---
History of Present Illness - Reason for Consult Consult date: 03/14/22 Pneumonia Requesting physician: Tramaine Ford - Chief Complaint Increasing shortness of breath x few days - History of Present Illness Patient is a 86-year-old male with a past medical he significant for hypertension diabetes mellitus hyperlipidemia COPD CVA patient now presenting to the hospital for evaluation of increasing shortness of breath fatigue and weakne ss symptom has been going on for few days before presentation to the hospital patient denies having any chest pain he did have a cough but not bringing up any sputum denies any nausea no vomiting no choking on the food no abdominal pain or any diarrhea with the symptoms the patient was evaluated on arrival to the ER the patient was afebrile and noted to have bradycardia subsequently patient is currently 99% on 4 L nasal cannula O2 sats on room air has not been documented patient did have normal white count with mild lymphopenia. Creatinine has been mildly elevated liver enzymes are normal COVID testing was negative blood culture has been obtained which are currently pending patient did have a chest x-ray bibasilar airspace opacities possible layering effusion patient currently being treated with the Zosyn infectious he was consulted with concern for possible pneumonia Review of Systems Positive point has been mentioned in the HPI rest of the systems are negative Past Medical History Past Medical History: COPD, CVA/TIA, Diabetes Mellitus, Hyperlipidemia, Hypertension Additional Past Medical History / Comment(s): Patient has a stroke in his 40's. History of Any Multi-Drug Resistant Organisms: None Reported Past Surgical History: Cholecystectomy Past Anesthesia/Blood Transfusion Reactions: No Reported Reaction Past Psychological History: No Psychological Hx Reported Smoking Status: Former smoker Past Alcohol Use History: Occasional Past Drug Use History: None Reported Medications and Allergies Home Medications Medication Instructions Recorded Confirmed Type glipiZIDE [glipiZIDE ER] 5 mg PO DAILY 01/10/22 03/13/22 History Cholecalciferol [Vitamin D3 (25 50 mcg PO DAILY #60 tab 01/13/22 03/13/22 Rx Mcg = 1000 Iu)] Acetaminophen Tab [Tylenol] 650 mg PO Q6H PRN 03/13/22 03/13/22 History Aspirin 81 mg PO DAILY 03/13/22 03/13/22 History Atorvastatin Calcium [Lipitor] 80 mg PO HS 03/13/22 03/13/22 History Clopidogrel [Plavix] 75 mg PO DAILY 03/13/22 03/13/22 History Furosemide [Lasix] 40 mg PO DAILY 03/13/22 03/13/22 History Insulin Glargine,Hum.rec.anlog 8 units SQ HS 03/13/22 03/13/22 History [Insulin Glargine] Insulin Lispro [humaLOG Kwikpen] See Protocol SQ ACHS 03/13/22 03/13/22 History Ipratropium-Albuterol Nebulize 3 ml INHALATION RT-Q6H 03/13/22 03/13/22 History [Duoneb 0.5 mg-3 mg/3 ml Soln] Magnesium Hydroxide [Milk of 2,400 mg PO DAILY 03/13/22 03/13/22 History Magnesia] Magnesium Oxide [Mag-Ox] 400 mg PO DAILY 03/13/22 03/13/22 History Metoprolol Succinate (ER) [Toprol 50 mg PO DAILY 03/13/22 03/13/22 History Xl] Omeprazole [PriLOSEC] 20 mg PO DAILY 03/13/22 03/13/22 History Potassium Chloride ER [K-Dur 10] 10 meq PO DAILY 03/13/22 03/13/22 History Tamsulosin HCl [Flomax] 0.4 mg PO DAILY 03/13/22 03/13/22 History guaiFENesin [guaiFENesin ER] 600 mg PO BID 03/13/22 03/13/22 History hydrALAZINE HCL [Apresoline] 25 mg PO BID 03/13/22 03/13/22 History predniSONE [Deltasone] 40 mg PO DAILY 03/13/22 03/13/22 History Allergies Allergy/AdvReac Type Severity Reaction Status Date / Time No Known Allergies Allergy Verified 03/13/22 12:42 Physical Exam Vitals: Vital Signs Temp Pulse Pulse Resp BP Pulse Ox 03/14/22 13:41 98 18 03/14/22 12:56 98 03/14/22 12:47 102 H 03/14/22 12:06 98.5 F 98 18 121/85 97 03/14/22 09:38 96 03/14/22 09:29 98 03/14/22 09:26 97 03/14/22 08:03 104 H 18 03/14/22 08:02 98.3 F 104 H 18 110/66 99 03/14/22 04:00 97.8 F 72 18 124/70 100 03/14/22 02:00 18 03/14/22 00:00 98.0 F 78 18 122/69 99 03/13/22 20:00 98.3 F 96 18 112/62 100 03/13/22 19:33 94 03/13/22 19:16 96 03/13/22 17:56 97.9 F 97 18 124/60 97 03/13/22 16:56 98.1 F 89 18 112/63 97 Intake and Output 03/14/22 03/14/22 03/14/22 06:59 14:59 22:59 Intake Total 138 Output Total 700 Balance -562 Intake: IV 20 Invasive Line 1 20 Oral 118 Output: Urine 700 Other: Voiding Method Indwelling Catheter # Bowel Movements 1 GENERAL DESCRIPTION: Elderly male lying in bed, no distress. No tachypnea or accessory muscle of respiration use. HEENT: Shows Pallor , no scleral icterus. Oral mucous membrane is dry. No pharyngeal erythema or thrush NECK: Trachea central, no thyromegaly. LUNGS: Unlabored breathing. Decreased breath sound at the base. HEART: S1, S2, regular rate and rhythm. No loud murmur ABDOMEN: Soft, no tenderness , guarding or rigidity, no organomegaly EXTREMITIES: No edema of feet. SKIN: No rash, no masses palpable. NEUROLOGICAL: The patient is awake, alert, oriented x2, mood and affect normal. Results CBC & Chem 7: 03/17/22 11:34 03/17/22 03:50 Labs: Abnormal Lab Results - Last 24 Hours (Table) 03/13/22 03/13/22 03/13/22 Range/Units 09:03 09:03 09:03 RBC 2.82 L (4.30-5.90) m/uL Hgb 8.8 L D (13.0-17.5) gm/dL Hct 27.3 L (39.0-53.0) % Lymphocytes # 0.3 L (1.0-4.8) k/uL APTT (22.0-30.0) sec Carbon Dioxide 31 H (22-30) mmol/L BUN 56 H (9-20) mg/dL Creatinine 1.28 H (0.66-1.25) mg/dL Glucose 205 H (74-99) mg/dL POC Glucose (mg/dL) (70-110) mg/dL Hemoglobin A1c 8.4 H (0.0-6.0) % Calcium 7.8 L (8.4-10.2) mg/dL Troponin I (0.000-0.034) ng/mL Total Protein 5.3 L (6.3-8.2) g/dL Albumin 2.9 L (3.5-5.0) g/dL Procalcitonin (0.02-0.09) ng/mL 03/13/22 03/13/22 03/13/22 Range/Units 09:03 09:03 18:18 RBC (4.30-5.90) m/uL Hgb (13.0-17.5) gm/dL Hct (39.0-53.0) % Lymphocytes # (1.0-4.8) k/uL APTT 19.2 L (22.0-30.0) sec Carbon Dioxide (22-30) mmol/L BUN (9-20) mg/dL Creatinine (0.66-1.25) mg/dL Glucose (74-99) mg/dL POC Glucose (mg/dL) 278 H (70-110) mg/dL Hemoglobin A1c (0.0-6.0) % Calcium (8.4-10.2) mg/dL Troponin I 0.158 H* (0.000-0.034) ng/mL Total Protein (6.3-8.2) g/dL Albumin (3.5-5.0) g/dL Procalcitonin (0.02-0.09) ng/mL 03/13/22 03/14/22 03/14/22 Range/Units 19:52 06:34 09:12 RBC (4.30-5.90) m/uL Hgb (13.0-17.5) gm/dL Hct (39.0-53.0) % Lymphocytes # (1.0-4.8) k/uL APTT (22.0-30.0) sec Carbon Dioxide (22-30) mmol/L BUN (9-20) mg/dL Creatinine (0.66-1.25) mg/dL Glucose (74-99) mg/dL POC Glucose (mg/dL) 293 H 245 H (70-110) mg/dL Hemoglobin A1c (0.0-6.0) % Calcium (8.4-10.2) mg/dL Troponin I (0.000-0.034) ng/mL Total Protein (6.3-8.2) g/dL Albumin (3.5-5.0) g/dL Procalcitonin 0.14 H (0.02-0.09) ng/mL 03/14/22 Range/Units 11:27 RBC (4.30-5.90) m/uL Hgb (13.0-17.5) gm/dL Hct (39.0-53.0) % Lymphocytes # (1.0-4.8) k/uL APTT (22.0-30.0) sec Carbon Dioxide (22-30) mmol/L BUN (9-20) mg/dL Creatinine (0.66-1.25) mg/dL Glucose (74-99) mg/dL POC Glucose (mg/dL) 385 H (70-110) mg/dL Hemoglobin A1c (0.0-6.0) % Calcium (8.4-10.2) mg/dL Troponin I (0.000-0.034) ng/mL Total Protein (6.3-8.2) g/dL Albumin (3.5-5.0) g/dL Procalcitonin (0.02-0.09) ng/mL Microbiology - Last 24 Hours (Table) 03/13/22 13:00 Blood Culture - Preliminary Blood No Growth after 24 hours 03/13/22 13:00 Blood Culture - Preliminary Blood No Growth after 24 hours Assessment and Plan (1) Pneumonia Status: Acute Code(s): J18.9 - PNEUMONIA, UNSPECIFIED ORGANISM SNOMED Code(s): 659087414 Plan: 1patient present to hospital with increasing shortness of breath and cough in this patient who do have a history of COPD and also history of COVID-19 pneumonia now with evidence of bibasilar infiltrate with concern for possible pneumonia however the patient did not have any fever or elevated white count concern for possible COPD exacerbation rather than pneumonia. 2we will obtain a CRP procalcitonin and sputum for gram stain culture. 3May continue Zosyn while awaiting further work-up to be completed. We will follow on clinical condition and cultures to further adjust medication if needed Thank you for this consultation will follow this patient along with you Time with Patient: Greater than 30
[2022-03-15] MEDS: methylPREDNISolone SOD SUCCI 125 MG/2 ML VIAL IV SCH ×3 (00:44→12:18)
[2022-03-15] MEDS: PIPERACILLIN-TAZOBACTAM 3.375 GM in SODIUM CHLORIDE 0.9% 100 ML IVPB SCH ×4 (00:45→23:21)
[2022-03-15 05:57] LABS: Glucose,Whole Blood 240 mg/dL (70-110)
[2022-03-15] MEDS: INSULIN ASPART (NovoLOG) 100 UNIT/ML VIAL SQ SCH ×4 (06:19→20:26)
--- NOTE | 2022-03-15 06:32 | PN ---
PROGRESS NOTE DATE OF SERVICE: 03/14/2022 SUBJECTIVE: This is an 86-year-old gentleman who was admitted with bilateral pneumonia, possibly aspiration, being closely monitored at this time. The patient also has less wheezing today. No chest pain, no palpitations, no fever. PHYSICAL EXAMINATION: VITAL SIGNS: Pulse is 99, blood pressure 120/72, and respirations 18. CHEST: Few scattered rhonchi, less wheezing. CARDIOVASCULAR: S1 and S2. ABDOMEN: Soft. NERVOUS SYSTEM: No focal deficits. LABS: Reviewed, glucose 364. ASSESSMENT: 1. Bilateral pneumonia, possibly aspiration. 2. Diabetes mellitus, type 2. 3. Chronic obstructive pulmonary disease. 4. Hypertension. 5. Hyperlipidemia. 6. History of cerebrovascular accident and transient ischemic attack. RECOMMENDATIONS: Recommended to continue current med, bronchodilators. Continue with steroids. We will increase the dose of Levemir and guarded prognosis. Further recommendations to follow. MMODL / IJN: [id number] /
[2022-03-15] MEDS: SYMBICORT 160-4.5 MCG INHALER INHALATION SCH ×2 (08:11→20:13)
[2022-03-15] MEDS: IPRATROPIUM-ALBUTEROL 3 ML NEB INHALATION SCH ×4 (08:11→20:13)
[2022-03-15] MEDS: INSULIN DETEMIR (LEVEMIR) 100 UNIT/ML SYR SQ SCH ×2 (08:39→20:26)
[2022-03-15] MEDS: TAMSULOSIN 0.4 MG CAP.ER.24H PO SCH (08:39)
[2022-03-15] MEDS: POTASSIUM CHLORIDE ER 10 MEQ TAB.ER.PRT PO SCH (08:39)
[2022-03-15] MEDS: MAGNESIUM OXIDE 400 MG TAB PO SCH (08:39)
[2022-03-15] MEDS: FUROSEMIDE 10 MG/ML 4 ML VIAL IV SCH ×2 (08:39→20:26)
[2022-03-15] MEDS: MAGNESIUM HYDROXIDE 2,400 MG/10 ML CUP PO SCH (08:39)
[2022-03-15] MEDS: HEPARIN SODIUM,PORCINE/PF 5,000 UNIT/0.5 ML SYRINGE SQ SCH ×2 (08:39→20:26)
[2022-03-15] MEDS: METOPROLOL SUCCINATE (ER) 50 MG TAB.ER.24H PO SCH (08:39)
[2022-03-15] MEDS: PANTOPRAZOLE 40 MG TABLET PO SCH (08:39)
[2022-03-15 10:11] VITALS: BMI 19.4
[2022-03-15 11:45] LABS: Glucose,Whole Blood 336 mg/dL (70-110)
[2022-03-15] MEDS: AZITHROMYCIN 500 MG in SODIUM CHLORIDE 0.9% 250 ML IVPB SCH (12:42)
[2022-03-15 13:15] LABS: Appearance,Urine Clear (Clear); Bilirubin,Urine Negative (Negative); Blood,Urine Negative (Negative); Color,Urine Colorless; Glucose,Urine (UA) Negative (Negative); Hyaline Casts,Urine 3 /lpf (0-2); Ketones,Urine Negative (Negative); Leukocyte Esterase,Urine Small (Negative); Mucus,Urine Rare /hpf; Nitrite,Urine Negative (Negative); Protein,Urine Negative (Negative); RBC,Urine 1 /hpf (0-5); Specific Gravity,Urine 1.012 (1.001-1.035); Squamous Epithelial Cell,Urine <1 /hpf (0-4); Urobilinogen,Urine <2.0 mg/dL (<2.0); WBC,Urine 13 /hpf (0-5)
--- NOTE | 2022-03-15 13:18 | FL ---
EXAMINATION TYPE: FL barium swallow w video DATE OF EXAM: 03/15/2022 MODIFIED SWALLOW / DEGLUTITION STUDY CLINICAL HISTORY: Dysphagia. Rule out aspiration. Currently admitted for bilateral pneumonias. TECHNIQUE: Deglutition study is performed utilizing thin liquid barium, honey and nectar thick liqui d barium, barium thick applesauce, and barium coated cracker. 1 minute 43 seconds of fluoro time and 0 images obtained. COMPARISON: None. FINDINGS: The oral and pharyngeal phases show satisfactory initiation and propagation with all modali ties tested. Normal mastication is seen with solid modalities tested. There is no evidence of penet ration or aspiration with any modality tested. Mild to minimal pharyngeal residue was appreciated. IMPRESSION: No penetration or aspiration observed. Please refer to speech therapist notes for furthe r details if necessary.
--- NOTE | 2022-03-15 14:28 | P.PN ---
Subjective Progress Note Date: 03/15/22 86-year-old male, who is a very poor historian. He was seen in room 367. The patient apparently has a history of COPD from previous tobacco use, diabetes, hypertension, gastroesophageal reflux disease, hyperlipidemia, atrial fibrillation with RVR, acute kidney injury, and CVA. The patient was hospital[facility] in January of this year, with episode of coronavirus infection, without coronavirus associated pneumonia. The patient presented to the hospital on March 13, with increasing shortness of breath, fatigue, and weakness. A chest x-ray showed bilateral pleural effusions. He was admitted with a diagnosis of possible pneumonia. The patient himself is not a particularly good historian. Currently, he's on 4 L of oxygen. He's not receiving any IV fluids. I did order a pro-calcitonin level and an N-terminal proBNP. He's currently on Zosyn and azithromycin. Laboratory data from March 13 shows a white count of 5.8, hemoglobin 8.8, hematocrit 27.3, and a normal platelet count. Sodium 137, potassium 4.7, chlorides 99, CO2 31, BUN 56, creatinine 1.28. Sugar was 385 and his troponin was 0.158. The patient's N-terminal proBNP is 23,000. Pro- calcitonin level is currently pending. Chest x-rays consistent with bilateral pleural effusions, and cephalization, most consistent with CHF, and not pneumonia. The patient is seen today 03/15/2022 in follow-up on the selective care unit. He is currently resting comfortably in bed. Awake and alert in no acute distress. He is dyspneic with conversation. Dyspneic with minimal exertion. He is maintaining O2 saturations in the upper 90s on 3 L/m per nasal cannula. He did undergo a barium swallow which revealed no penetration or aspiration observed. Blood cultures reveal no growth. Blood glucose 336. C-reactive protein less than 0.5. Urinalysis negative. He is continue on Symbicort, DuoNeb inhalations, IV site Medrol. He remains on antibiotics in the form of Zosyn. Continued on IV diuretics. Correa catheter was placed. Currently in a - 1.5 L balance. Objective - Vital Signs Vital signs: Vital Signs Temp 98.2 F 03/15/22 08:35 Pulse 98 03/15/22 12:30 Resp 22 03/15/22 12:30 BP 132/67 03/15/22 12:30 Pulse Ox 99 03/15/22 12:30 FiO2 Intake & Output 03/14/22 03/15/22 03/15/22 18:59 06:59 18:59 Intake Total 256 1188 Output Total 900 825 285 Balance -644 -825 903 Weight 61.5 kg 61.5 kg Intake: IV 20 Invasive Line 1 20 Intake, IV Titration 350 Amount Azithromycin 500 mg In 250 Sodium Chloride 0.9% 250 ml @ 250 mls/hr IVPB DAILY [facility] Rx#:[id number] Piperacillin-Tazobactam 3 100 .375 gm In Sodium Chloride 0.9% 100 ml @ 25 mls/hr IVPB Q8HR [facility] Rx# :[id number] Oral 236 838 Output: Urine 900 825 Straight 825 Post Void Residual 285 Other: Voiding Method Indwelling Catheter Diaper Diaper # Voids 1 0 # Bowel Movements 1 - Exam GENERAL EXAM: Alert, plus an 86-year-old gentleman, poor historian, on 3 L nasal cannula, comfortable in no apparent distress. HEAD: Normocephalic. EYES: Normal reaction of pupils, equal size. NOSE: Clear with pink turbinates. THROAT: No erythema or exudates. NECK: No masses, no JVD. CHEST: No chest wall deformity. LUNGS: Equal air entry with bilateral scattered rhonchi. CVS: S1 and S2 normal with no audible murmur, regular rhythm. ABDOMEN: No hepatosplenomegaly, normal bowel sounds, no guarding or rigidity. SPINE: No scoliosis or deformity SKIN: No rashes CENTRAL NERVOUS SYSTEM: No focal deficits, tone is normal in all 4 extremities. EXTREMITIES: There is no peripheral edema. No clubbing, no cyanosis. Peripheral pulses are intact. - Labs CBC & Chem 7: 03/13/22 09:03 03/13/22 09:03 Labs: Abnormal Lab Results - Last 24 Hours (Table) 03/14/22 03/14/22 03/15/22 Range/Units 16:25 20:32 05:56 POC Glucose (mg/dL) 364 H 360 H 240 H (70-110) mg/dL Ur Leukocyte Esterase (Negative) Urine WBC (0-5) /hpf Hyaline Casts (0-2) /lpf Urine Mucus (None) /hpf 03/15/22 03/15/22 Range/Units 11:37 11:38 POC Glucose (mg/dL) 336 H (70-110) mg/dL Ur Leukocyte Esterase Small H (Negative) Urine WBC 13 H (0-5) /hpf Hyaline Casts 3 H (0-2) /lpf Urine Mucus Rare H (None) /hpf Microbiology - Last 24 Hours (Table) 03/13/22 13:00 Blood Culture - Preliminary Blood No Growth after 24 hours 03/13/22 13:00 Blood Culture - Preliminary Blood No Growth after 24 hours Assessment and Plan Assessment: Shortness of breath, most likely related to fluid overload/CHF. Responding well to diuretics. Currently in a -1.5 L balance. Possible pneumonia, pro-calcitonin 0.14. Currently on Zosyn. Recent admission, January 2022, for coronavirus infection, without coronavirus associated pneumonia. History of COPD, from previous heavy tobacco use. History of diabetes mellitus. History of hypertension. History of GERD. History of hyperlipidemia. History of atrial fibrillation/RVR. History of acute kidney injury. History of CVA. Plan: The patient was seen and evaluated Labs and medications reviewed Continue the current treatment plan Titrate the FiO2 as tolerated We will continue to follow I have personally seen and examined the patient, performed the documentation and the assessment and plan as written. Number of minutes spent on the visit: 10.
[2022-03-15] MEDS: methylPREDNISolone SOD SUCCI 40 MG/ML 1 ML VIAL IV SCH ×2 (15:48→23:21)
[2022-03-15] MEDS: ACETAMINOPHEN TAB 325 MG TAB PO PRN (15:49)
[2022-03-15 16:45] LABS: Glucose,Whole Blood 131 mg/dL (70-110)
[2022-03-15 20:01] LABS: Glucose,Whole Blood 313 mg/dL (70-110)
[2022-03-15] MEDS ORDERED: INSULIN DETEMIR (LEVEMIR) 100 UNIT/ML SYR SQ SCH (21:00)
[2022-03-15 23:40] LABS: Glucose,Whole Blood 344 mg/dL (70-110)
[2022-03-16 00:17] LABS: HCT 25.8 % (39.0-53.0); HGB 7.4 gm/dL (13.0-17.5); Hypochromasia Marked; MCH 30.3 pg (25.0-35.0); MCHC 28.7 g/dL (31.0-37.0); Macrocytosis Moderate; Mean Platelet Volume 9.8; Platelet Count 235 k/uL (150-450); RBC 2.44 m/uL (4.30-5.90); RDW 14.5 % (11.5-15.5); WBC 5.2 k/uL (3.8-10.6)
[2022-03-16 00:29] LABS: INR 0.9 (<1.2); Partial Thromboplastin Time 21.6 sec (22.0-30.0); Prothrombin Time 10.3 sec (9.0-12.0)
[2022-03-16 00:30] LABS: MCV 105.7 fL (80.0-100.0)
[2022-03-16 00:32] LABS: Glucose,Whole Blood 294 mg/dL (70-110)
--- NOTE | 2022-03-16 06:24 | PN ---
PROGRESS NOTE DATE OF SERVICE: 03/15/2022 SUBJECTIVE: This is an 86-year-old gentleman who was admitted with bilateral pneumonia with possibly aspiration, is being closely monitored. No chest pain. No palpitations. No fever. PHYSICAL EXAMINATION: VITAL SIGNS: Pulse is 98, blood pressure 130/70, respirations 20. CHEST: Few scattered rhonchi. CARDIOVASCULAR: S1 and S2. ABDOMEN: Soft. NERVOUS SYSTEM: No focal deficits. LABS: Labs are reviewed. ASSESSMENT: 1. Bilateral pneumonia, possibly aspiration. 2. Diabetes mellitus, type 2. 3. Chronic obstructive pulmonary disease. 4. Hypertension. 5. Hyperlipidemia. 6. History of cerebrovascular accident and transient ischemic attack. RECOMMENDATIONS: Recommended to continue current medications and symptomatic treatment. Adjust dose of insulin. Otherwise, monitor closely. Prognosis guarded. Further recommendations to follow. Continue with antibiotics. See orders for further details. MMODL / IJN: [id number] /
[2022-03-16 06:49] LABS: Glucose,Whole Blood 132 mg/dL (70-110)
[2022-03-16] MEDS: INSULIN ASPART (NovoLOG) 100 UNIT/ML VIAL SQ SCH ×4 (07:00→20:52)
[2022-03-16] MEDS: HEPARIN SODIUM,PORCINE/PF 5,000 UNIT/0.5 ML SYRINGE SQ SCH (08:08)
[2022-03-16] MEDS: MAGNESIUM HYDROXIDE 2,400 MG/10 ML CUP PO SCH (08:09)
[2022-03-16] MEDS: SYMBICORT 160-4.5 MCG INHALER INHALATION SCH ×2 (08:28→20:03)
[2022-03-16] MEDS: IPRATROPIUM-ALBUTEROL 3 ML NEB INHALATION SCH ×4 (08:28→20:03)
[2022-03-16] MEDS: FUROSEMIDE 10 MG/ML 4 ML VIAL IV SCH ×2 (08:33→20:58)
[2022-03-16] MEDS: methylPREDNISolone SOD SUCCI 40 MG/ML 1 ML VIAL IV SCH ×2 (08:33→20:59)
[2022-03-16] MEDS: PIPERACILLIN-TAZOBACTAM 3.375 GM in SODIUM CHLORIDE 0.9% 100 ML IVPB SCH ×2 (08:33→17:30)
--- NOTE | 2022-03-16 08:36 | XR ---
EXAMINATION TYPE: XR chest 1V portable DATE OF EXAM: 03/16/2022 COMPARISON: 03/14/2022 INDICATION: CHF TECHNIQUE: Single frontal view of the chest is obtained. FINDINGS: The heart size is normal. The pulmonary vasculature is within normal limits. Small bilateral pleural effusions are present silhouetting the diaphragms. IMPRESSION: 1. Small bilateral pleural effusions.
[2022-03-16] MEDS ORDERED: PANTOPRAZOLE 40 MG/10 ML VIAL IVP SCH (09:00)
[2022-03-16 09:10] LABS: Basophils % (A) 0 %; Eosinophils % (A) 0 %; HCT 28.7 % (39.0-53.0); Hypochromasia Slight; Lymphocytes # (A) 0.3 k/uL (1.0-4.8); Lymphocytes % (A) 5 %; MCH 30.7 pg (25.0-35.0); MCHC 32.3 g/dL (31.0-37.0); Mean Platelet Volume 9.7; Monocytes # (A) 0.5 k/uL (0-1.0); Monocytes % (A) 8 %; Neutrophils # (A) 5.3 k/uL (1.3-7.7); Neutrophils % (A) 83 %; Platelet Count 204 k/uL (150-450); Poikilocytosis Slight; RBC 3.02 m/uL (4.30-5.90); WBC 6.3 k/uL (3.8-10.6)
[2022-03-16 09:15] LABS: Calcium 7.8 mg/dL (8.4-10.2); HGB 9.3 gm/dL (13.0-17.5); Potassium 5.5 mmol/L (3.5-5.1)
[2022-03-16] MEDS: INSULIN DETEMIR (LEVEMIR) 100 UNIT/ML SYR SQ SCH ×2 (09:59→23:19)
[2022-03-16] MEDS: POTASSIUM CHLORIDE ER 10 MEQ TAB.ER.PRT PO SCH (10:22)
[2022-03-16] MEDS: MAGNESIUM OXIDE 400 MG TAB PO SCH (10:35)
[2022-03-16] MEDS: METOPROLOL SUCCINATE (ER) 50 MG TAB.ER.24H PO SCH (10:35)
[2022-03-16] MEDS: TAMSULOSIN 0.4 MG CAP.ER.24H PO SCH (10:35)
--- NOTE | 2022-03-16 12:08 | P.PN ---
Subjective Progress Note Date: 03/16/22 Principal diagnosis: Acute diastolic congestive heart failure, possible pneumonia 86-year-old male, who is a very poor historian. He was seen in room 367. The patient apparently has a history of COPD from previous tobacco use, diabetes, hypertension, gastroesophageal reflux disease, hyperlipidemia, atrial fibrillation with RVR, acute kidney injury, and CVA. The patient was hospitalized in January of this year, with episode of coronavirus infection, without coronavirus associated pneumonia. The patient presented to the hospital on March 13, with increasing shortness of breath, fatigue, and weakness. A chest x-ray showed bilateral pleural effusions. He was admitted with a diagnosis of possible pneumonia. The patient himself is not a particularly good historian. Currently, he's on 4 L of oxygen. He's not receiving any IV fluids. I did order a pro-calcitonin level and an N-terminal proBNP. He's currently on Zosyn and azithromycin. Laboratory data from March 13 shows a white count of 5.8, hemoglobin 8.8, hematocrit 27.3, and a normal platelet count. Sodium 137, potassium 4.7, chlorides 99, CO2 31, BUN 56, creatinine 1.28. Sugar was 385 and his troponin was 0.158. The patient's N-terminal proBNP is 23,000. Pro- calcitonin level is currently pending. Chest x-rays consistent with bilateral pleural effusions, and cephalization, most consistent with CHF, and not pneumonia. The patient is seen today 03/15/2022 in follow-up on the selective care unit. He is currently resting comfortably in bed. Awake and alert in no acute distress. He is dyspneic with conversation. Dyspneic with minimal exertion. He is maintaining O2 saturations in the upper 90s on 3 L/m per nasal cannula. He did undergo a barium swallow which revealed no penetration or aspiration observed. Blood cultures reveal no growth. Blood glucose 336. C-reactive protein less than 0.5. Urinalysis negative. He is continue on Symbicort, DuoNeb inhalations, IV site Medrol. He remains on antibiotics in the form of Zosyn. Continued on IV diuretics. Correa catheter was placed. Currently in a - 1.5 L balance. Patient was reevaluated today on 03/16/22, patient had to be transferred to the ICU last night mostly because of sudden episode of GI bleeding with bright red b lood per rectum. Patient had a drop in his hemoglobin down to 7.4, and he was actively bleeding on the floor. Patient received 2 units of packed RBCs when he was transferred to the ICU, and his hemoglobin this morning is 9.3 after 2 units given. Continues to have intermittent episodes of bright red blood per rectum. No GI coverage, surgeon was consulted, being evaluated for surgery for possible workup of his GI bleeding. At any rate patient continues to be on diuretics for his bilateral pleural effusions mostly secondary to diastolic congestive heart failure, remains on antibiotics in the form of Zosyn, although his pro- calcitonin level was not significantly elevated. Pulmonary-dao the patient seems to be doing fairly well. Patient is not in any distress, and I did recommend more Lasix to be given this morning especially after he received 2 units of packed RBCs. Objective - Vital Signs Vital signs: Vital Signs Temp 97.8 F 03/16/22 08:00 Pulse 91 03/16/22 11:45 Resp 16 03/16/22 11:45 BP 91/64 03/16/22 11:45 Pulse Ox 99 03/16/22 10:00 FiO2 Intake & Output 03/15/22 03/16/22 03/16/22 18:59 06:59 18:59 Intake Total 1424 960 390 Output Total 285 1540 305 Balance 1139 -580 85 Weight 61.5 kg 62.2 kg Intake: IV 30 80 0.9 80 Invasive Line 2 30 Intake, IV Titration 350 Amount Azithromycin 500 mg In 250 Sodium Chloride 0.9% 250 ml @ 250 mls/hr IVPB DAILY [facility] Rx#:[id number] Piperacillin-Tazobactam 3 100 .375 gm In Sodium Chloride 0.9% 100 ml @ 25 mls/hr IVPB Q8HR [facility] Rx# :[id number] Oral 1074 Blood Product 930 310 Rc As-1 Unit 0 310 [id number] Rc As-1 Unit 310 [id number] Output: Urine 1540 305 Post Void Residual 285 Other: Voiding Method Diaper Indwelling Catheter Indwelling Catheter # Bowel Movements 3 1 1 - Exam Physical Exam: Revealed an 86-year-old white male, in no distress, on 3 L nasal cannula. Head: Atraumatic, normocephalic. HEENT:[Neck is supple.] [No neck masses.] [No thyromegaly.] [No JVD.] Chest: [Diminished breath sounds at the bases no crackles or rhonchi or wheezes Cardiac Exam: Distant S1 and S2, no S3 gallop, no murmur. Abdomen: [Soft, nontender, no megaly, no rebound, no guarding, normal bowel sounds.] Extremities: [No clubbing, no edema, no cyanosis.] Good pulses bilaterally. Neurological Exam: [No focal neurologic deficit. Skin: No rashes. Musculoskeletal: No deformities and no limitation in range of motion - Labs CBC & Chem 7: 03/16/22 08:19 03/16/22 08:19 Labs: Abnormal Lab Results - Last 24 Hours (Table) 03/15/22 03/15/22 03/15/22 Range/Units 08:18 11:38 16:40 RBC (4.30-5.90) m/uL Hgb (13.0-17.5) gm/dL Hct (39.0-53.0) % MCV (80.0-100.0) fL MCHC (31.0-37.0) g/dL Lymphocytes # (1.0-4.8) k/uL APTT (22.0-30.0) sec Potassium (3.5-5.1) mmol/L Carbon Dioxide (22-30) mmol/L BUN (9-20) mg/dL Creatinine (0.66-1.25) mg/dL Glucose (74-99) mg/dL POC Glucose (mg/dL) 131 H (70-110) mg/dL Calcium (8.4-10.2) mg/dL Procalcitonin 0.15 H (0.02-0.09) ng/mL Ur Leukocyte Esterase Small H (Negative) Urine WBC 13 H (0-5) /hpf Hyaline Casts 3 H (0-2) /lpf Urine Mucus Rare H (None) /hpf Crossmatch 03/15/22 03/15/22 03/15/22 Range/Units 19:59 23:36 23:38 RBC 2.44 L (4.30-5.90) m/uL Hgb 7.4 L (13.0-17.5) gm/dL Hct 25.8 L (39.0-53.0) % MCV 105.7 H D (80.0-100.0) fL MCHC 28.7 L (31.0-37.0) g/dL Lymphocytes # (1.0-4.8) k/uL APTT (22.0-30.0) sec Potassium (3.5-5.1) mmol/L Carbon Dioxide (22-30) mmol/L BUN (9-20) mg/dL Creatinine (0.66-1.25) mg/dL Glucose (74-99) mg/dL POC Glucose (mg/dL) 313 H 344 H (70-110) mg/dL Calcium (8.4-10.2) mg/dL Procalcitonin (0.02-0.09) ng/mL Ur Leukocyte Esterase (Negative) Urine WBC (0-5) /hpf Hyaline Casts (0-2) /lpf Urine Mucus (None) /hpf Crossmatch 03/15/22 03/15/22 03/16/22 Range/Units 23:40 23:45 00:30 RBC (4.30-5.90) m/uL Hgb (13.0-17.5) gm/dL Hct (39.0-53.0) % MCV (80.0-100.0) fL MCHC (31.0-37.0) g/dL Lymphocytes # (1.0-4.8) k/uL APTT 21.6 L (22.0-30.0) sec Potassium (3.5-5.1) mmol/L Carbon Dioxide (22-30) mmol/L BUN (9-20) mg/dL Creatinine (0.66-1.25) mg/dL Glucose (74-99) mg/dL POC Glucose (mg/dL) 294 H (70-110) mg/dL Calcium (8.4-10.2) mg/dL Procalcitonin (0.02-0.09) ng/mL Ur Leukocyte Esterase (Negative) Urine WBC (0-5) /hpf Hyaline Casts (0-2) /lpf Urine Mucus (None) /hpf Crossmatch See Detail 03/16/22 03/16/22 03/16/22 Range/Units 06:47 08:19 08:19 RBC 3.02 L (4.30-5.90) m/uL Hgb 9.3 L D (13.0-17.5) gm/dL Hct 28.7 L (39.0-53.0) % MCV (80.0-100.0) fL MCHC (31.0-37.0) g/dL Lymphocytes # 0.3 L (1.0-4.8) k/uL APTT (22.0-30.0) sec Potassium 5.5 H (3.5-5.1) mmol/L Carbon Dioxide 34 H (22-30) mmol/L BUN 63 H (9-20) mg/dL Creatinine 1.71 H (0.66-1.25) mg/dL Glucose 108 H (74-99) mg/dL POC Glucose (mg/dL) 132 H (70-110) mg/dL Calcium 7.8 L (8.4-10.2) mg/dL Procalcitonin (0.02-0.09) ng/mL Ur Leukocyte Esterase (Negative) Urine WBC (0-5) /hpf Hyaline Casts (0-2) /lpf Urine Mucus (None) /hpf Crossmatch Microbiology - Last 24 Hours (Table) 03/13/22 13:00 Blood Culture - Preliminary Blood No Growth after 48 hours 03/13/22 13:00 Blood Culture - Preliminary Blood No Growth after 48 hours Assessment and Plan Assessment: Impression: Acute lower GI bleeding, exact etiology and source is not clear, possibly lower GI. Shortness of breath and acute hypoxic respiratory failure secondary to diastolic congestive heart failure, acute. Patient presented with bilateral pleural effusions and elevated BNP level. Possible pneumonia although clinically it's doubtful pro calcitonin level is only 0.14, nonetheless the patient is empirically on Zosyn. History of underlying COPD presently inactive. Type 2 diabetes. Benign essential hypertension. Dyslipidemia. Atrial fibrillation with RVR. Acute kidney injury. History of CVA. Recommendation: Continue diuretics Transfuse and maintaining hemoglobin above 7 Surgical consultation since there is no GI coverage Hold any anticoagulants. Continue bronchodilators. Continue oxygen and titrate accordingly Continue to monitor daily x-rays of the chest, and diuresed today. Overall prognosis is definitely guarded. We will continue to follow. Time with Patient: Less than 30
[2022-03-16 12:36] LABS: Glucose,Whole Blood 134 mg/dL (70-110)
[2022-03-16 12:37] LABS: HCT 27.1 % (39.0-53.0); Hypochromasia Moderate; MCH 31.9 pg (25.0-35.0); MCHC 33.2 g/dL (31.0-37.0); MCV 96.2 fL (80.0-100.0); Mean Platelet Volume 9.2; Platelet Count 208 k/uL (150-450); Poikilocytosis Slight; RBC 2.81 m/uL (4.30-5.90); WBC 8.4 k/uL (3.8-10.6)
--- NOTE | 2022-03-16 14:36 | NM ---
EXAMINATION TYPE: NM GI bleeding DATE OF EXAM: 03/16/2022 HISTORY: GI bleed COMPARISON: NONE Following administration of 3 ml PYP 24.9 mCi Tc 99m Sodium Pertechnete. Immediate images post inject ion. FINDINGS: Normal tracer activity is seen in the blood pool of the abdominal aorta, common iliac arteries, femor al arteries, liver, and spleen on all of the interval images. Later images show accumulation of trace r in the urinary bladder, which is consistent with excreted tracer. No abnormal tracer uptake is present outside the blood pool that would be consistent with an active G I bleed. No suspicious bowel type activity or motion is evident. On delayed images there appears to b e contamination below the pelvis likely from urinary bladder. IMPRESSION: 1. No suspicious radiotracer accumulation to suggest GI bleed during the time of this exam.
--- NOTE | 2022-03-16 16:35 | P.GSCN ---
History of Present Illness Consult date: 03/16/22 History of present illness: CHIEF COMPLAINT: Shortness of breath and cough HISTORY OF PRESENT ILLNESS: This is a 86-year-old male who presented to the hospital with complaints of shortness of breath and cough. He was found to have evidence of CHF exacerbation and receiving IV Lasix. He was on a regular medical floor and required transfer to the ICU yesterday after having bloody bowel movements that started at 11 PM. Patient had 2 large bloody bowel movements with bright red blood this morning with blood clots. He had been on Plavix and aspirin at home. These have been discontinued. Subcu heparin is also been discontinued. He had a hemoglobin of 8.8 on admission that did drop down to 7.4. Hemoglobin today is at 9.0. Patient has received 2 units of blo od. Patient denies any history of peptic ulcer disease or diverticulitis. Patient denies ever having colonoscopy. Patient denies any abdominal pain. Denies any nausea vomiting. Surgical service has been consulted in regards to GI bleed. PAST MEDICAL HISTORY: See list. PAST SURGICAL HISTORY: See list. MEDICATIONS: See list. ALLERGIES: See list. SOCIAL HISTORY: No illicit drug use. REVIEW OF SYSTEMS: CONSTITUTIONAL: Denies fever or chills. HEENT: Denies blurred vision, vision changes, or eye pain. Denies hemoptysis ENDOCRINE: Denies heat or cold intolerance. CARDIOVASCULAR: Denies chest pain or pressure. RESPIRATORY: No shortness of breath. GASTROINTESTINAL: Please refer to HPI NEURO: Denies history of seizures. PSYCH: No depression or suicidal ideation HEMATOLOGIC: Denies bleeding disorders. LYMPHATIC: The patient denies any lumps and bumps around the neck. GENITOURINARY: Denies any blood in urine or increased urinary frequency. MUSCULOSKELETAL: Denies myalgias. Denies joint swelling. Denies decreased range of motion beyond patients baseline. SKIN: Denies pruitis. Denies rash. PHYSICAL EXAM: VITAL SIGNS: Reviewed GENERAL: Well-developed in no acute distress. HEENT: No sclera icterus. Extraocular movements grossly intact. Moist buccal mucosa. Head is atraumatic, normocephalic. Hears conversational speech. No nasal drainage. NECK: Supple without lymphadenopathy. CHEST: Non-labored respirations and equal bilateral excursions. CARDIOVASCULAR: Palpable 2+ radial pulses. ABDOMEN: Soft. Nondistended. Nontender MUSCULOSKELETAL: No clubbing or cyanosis. NEUROLOGIC: No focal or lateralizing signs. Cranial nerves II through XII grossly intact. PSYCH: Appropriate affect. Alert and oriented to person, place and time. Hard of hearing SKIN: Well perfused. Good skin turgor. LABORATORY DATA: WBC is 8.4 hemoglobin 9.0 platelets 208 Sodium 141 potassium is 5.5 creatinine 1.71 IMAGING: Chest x-ray small bilateral pleural effusions ASSESSMENT: 1. Acute GI bleed with bright red blood 2. Acute hypoxic respiratory failure secondary to acute CHF exacerbation 3. Bilateral pleural effusions 4. History of COPD 5. Diabetes mellitus type 2 6. History of A. fib 7. History of CVA 8. Hyperkalemia 9. Acute kidney injury PLAN: -Patient scheduled for EGD and colonoscopy during this admission -Tagged RBC scan ordered -Continue to hold subcu heparin, Plavix and aspirin -Continue to monitor for any signs or symptoms of bleeding -Continue to monitor hemoglobin -Continue PPI -Fluid overload management per critical care service Physician Varnish Cooker note has been reviewed by physician. Signing provider agrees with the documented findings, assessment, and plan of care. Past Medical History Past Medical History: COPD, CVA/TIA, Diabetes Mellitus, Hyperlipidemia, Hypertension Additional Past Medical History / Comment(s): Patient has a stroke in his 40's. History of Any Multi-Drug Resistant Organisms: None Reported Past Surgical History: Cholecystectomy Past Anesthesia/Blood Transfusion Reactions: No Reported Reaction Past Psychological History: No Psychological Hx Reported Smoking Status: Former smoker Past Alcohol Use History: Occasional Past Drug Use History: None Reported Medications and Allergies Home Medications Medication Instructions Recorded Confirmed Type glipiZIDE [glipiZIDE ER] 5 mg PO DAILY 01/10/22 03/13/22 History Cholecalciferol [Vitamin D3 (25 50 mcg PO DAILY #60 tab 01/13/22 03/13/22 Rx Mcg = 1000 Iu)] Acetaminophen Tab [Tylenol] 650 mg PO Q6H PRN 03/13/22 03/13/22 History Aspirin 81 mg PO DAILY 03/13/22 03/13/22 History Atorvastatin Calcium [Lipitor] 80 mg PO HS 03/13/22 03/13/22 History Clopidogrel [Plavix] 75 mg PO DAILY 03/13/22 03/13/22 History Furosemide [Lasix] 40 mg PO DAILY 03/13/22 03/13/22 History Insulin Glargine,Hum.rec.anlog 8 units SQ HS 03/13/22 03/13/22 History [Insulin Glargine] Insulin Lispro [humaLOG Kwikpen] See Protocol SQ ACHS 03/13/22 03/13/22 History Ipratropium-Albuterol Nebulize 3 ml INHALATION RT-Q6H 03/13/22 03/13/22 History [Duoneb 0.5 mg-3 mg/3 ml Soln] Magnesium Hydroxide [Milk of 2,400 mg PO DAILY 03/13/22 03/13/22 History Magnesia] Magnesium Oxide [Mag-Ox] 400 mg PO DAILY 03/13/22 03/13/22 History Metoprolol Succinate (ER) [Toprol 50 mg PO DAILY 03/13/22 03/13/22 History Xl] Omeprazole [PriLOSEC] 20 mg PO DAILY 03/13/22 03/13/22 History Potassium Chloride ER [K-Dur 10] 10 meq PO DAILY 03/13/22 03/13/22 History Tamsulosin HCl [Flomax] 0.4 mg PO DAILY 03/13/22 03/13/22 History guaiFENesin [guaiFENesin ER] 600 mg PO BID 03/13/22 03/13/22 History hydrALAZINE HCL [Apresoline] 25 mg PO BID 03/13/22 03/13/22 History predniSONE [Deltasone] 40 mg PO DAILY 03/13/22 03/13/22 History Allergies Allergy/AdvReac Type Severity Reaction Status Date / Time No Known Allergies Allergy Verified 03/13/22 12:42 Surgical - Exam Vital Signs Temp Pulse Resp BP Pulse Ox 98.4 F 98 18 115/58 99 03/13/22 10:11 03/13/22 10:11 03/13/22 10:11 03/13/22 10:11 03/13/22 10:11 Results - Labs 03/16/22 11:59 03/16/22 08:19 Abnormal Lab Results - Last 24 Hours (Table) 03/15/22 03/15/22 03/15/22 Range/Units 08:18 11:37 11:38 RBC (4.30-5.90) m/uL Hgb (13.0-17.5) gm/dL Hct (39.0-53.0) % MCV (80.0-100.0) fL MCHC (31.0-37.0) g/dL Lymphocytes # (1.0-4.8) k/uL APTT (22.0-30.0) sec Potassium (3.5-5.1) mmol/L Carbon Dioxide (22-30) mmol/L BUN (9-20) mg/dL Creatinine (0.66-1.25) mg/dL Glucose (74-99) mg/dL POC Glucose (mg/dL) 336 H (70-110) mg/dL Calcium (8.4-10.2) mg/dL Procalcitonin 0.15 H (0.02-0.09) ng/mL Ur Leukocyte Esterase Small H (Negative) Urine WBC 13 H (0-5) /hpf Hyaline Casts 3 H (0-2) /lpf Urine Mucus Rare H (None) /hpf Crossmatch 03/15/22 03/15/22 03/15/22 Range/Units 16:40 19:59 23:36 RBC (4.30-5.90) m/uL Hgb (13.0-17.5) gm/dL Hct (39.0-53.0) % MCV (80.0-100.0) fL MCHC (31.0-37.0) g/dL Lymphocytes # (1.0-4.8) k/uL APTT (22.0-30.0) sec Potassium (3.5-5.1) mmol/L Carbon Dioxide (22-30) mmol/L BUN (9-20) mg/dL Creatinine (0.66-1.25) mg/dL Glucose (74-99) mg/dL POC Glucose (mg/dL) 131 H 313 H 344 H (70-110) mg/dL Calcium (8.4-10.2) mg/dL Procalcitonin (0.02-0.09) ng/mL Ur Leukocyte Esterase (Negative) Urine WBC (0-5) /hpf Hyaline Casts (0-2) /lpf Urine Mucus (None) /hpf Crossmatch 03/15/22 03/15/22 03/15/22 Range/Units 23:38 23:40 23:45 RBC 2.44 L (4.30-5.90) m/uL Hgb 7.4 L (13.0-17.5) gm/dL Hct 25.8 L (39.0-53.0) % MCV 105.7 H D (80.0-100.0) fL MCHC 28.7 L (31.0-37.0) g/dL Lymphocytes # (1.0-4.8) k/uL APTT 21.6 L (22.0-30.0) sec Potassium (3.5-5.1) mmol/L Carbon Dioxide (22-30) mmol/L BUN (9-20) mg/dL Creatinine (0.66-1.25) mg/dL Glucose (74-99) mg/dL POC Glucose (mg/dL) (70-110) mg/dL Calcium (8.4-10.2) mg/dL Procalcitonin (0.02-0.09) ng/mL Ur Leukocyte Esterase (Negative) Urine WBC (0-5) /hpf Hyaline Casts (0-2) /lpf Urine Mucus (None) /hpf Crossmatch See Detail 03/16/22 03/16/22 03/16/22 Range/Units 00:30 06:47 08:19 RBC 3.02 L (4.30-5.90) m/uL Hgb 9.3 L D (13.0-17.5) gm/dL Hct 28.7 L (39.0-53.0) % MCV (80.0-100.0) fL MCHC (31.0-37.0) g/dL Lymphocytes # 0.3 L (1.0-4.8) k/uL APTT (22.0-30.0) sec Potassium (3.5-5.1) mmol/L Carbon Dioxide (22-30) mmol/L BUN (9-20) mg/dL Creatinine (0.66-1.25) mg/dL Glucose (74-99) mg/dL POC Glucose (mg/dL) 294 H 132 H (70-110) mg/dL Calcium (8.4-10.2) mg/dL Procalcitonin (0.02-0.09) ng/mL Ur Leukocyte Esterase (Negative) Urine WBC (0-5) /hpf Hyaline Casts (0-2) /lpf Urine Mucus (None) /hpf Crossmatch 03/16/22 Range/Units 08:19 RBC (4.30-5.90) m/uL Hgb (13.0-17.5) gm/dL Hct (39.0-53.0) % MCV (80.0-100.0) fL MCHC (31.0-37.0) g/dL Lymphocytes # (1.0-4.8) k/uL APTT (22.0-30.0) sec Potassium 5.5 H (3.5-5.1) mmol/L Carbon Dioxide 34 H (22-30) mmol/L BUN 63 H (9-20) mg/dL Creatinine 1.71 H (0.66-1.25) mg/dL Glucose 108 H (74-99) mg/dL POC Glucose (mg/dL) (70-110) mg/dL Calcium 7.8 L (8.4-10.2) mg/dL Procalcitonin (0.02-0.09) ng/mL Ur Leukocyte Esterase (Negative) Urine WBC (0-5) /hpf Hyaline Casts (0-2) /lpf Urine Mucus (None) /hpf Crossmatch Microbiology - Last 24 Hours (Table) 03/13/22 13:00 Blood Culture - Preliminary Blood No Growth after 48 hours 03/13/22 13:00 Blood Culture - Preliminary Blood No Growth after 48 hours Diabetes panel 03/16/22 Range/Units 08:19 Sodium 141 (137-145) mmol/L Potassium 5.5 H (3.5-5.1) mmol/L Chloride 106 (98-107) mmol/L Carbon Dioxide 34 H (22-30) mmol/L BUN 63 H (9-20) mg/dL Creatinine 1.71 H (0.66-1.25) mg/dL Glucose 108 H (74-99) mg/dL Calcium 7.8 L (8.4-10.2) mg/dL Calcium panel 03/16/22 Range/Units 08:19 Calcium 7.8 L (8.4-10.2) mg/dL Pituitary panel 03/16/22 Range/Units 08:19 Sodium 141 (137-145) mmol/L Potassium 5.5 H (3.5-5.1) mmol/L Chloride 106 (98-107) mmol/L Carbon Dioxide 34 H (22-30) mmol/L BUN 63 H (9-20) mg/dL Creatinine 1.71 H (0.66-1.25) mg/dL Glucose 108 H (74-99) mg/dL Calcium 7.8 L (8.4-10.2) mg/dL Adrenal panel 03/16/22 Range/Units 08:19 Sodium 141 (137-145) mmol/L Potassium 5.5 H (3.5-5.1) mmol/L Chloride 106 (98-107) mmol/L Carbon Dioxide 34 H (22-30) mmol/L BUN 63 H (9-20) mg/dL Creatinine 1.71 H (0.66-1.25) mg/dL Glucose 108 H (74-99) mg/dL Calcium 7.8 L (8.4-10.2) mg/dL
[2022-03-16 17:31] LABS: Glucose,Whole Blood 111 mg/dL (70-110)
[2022-03-16 18:36] LABS: HCT 26.6 % (39.0-53.0); HGB 8.6 gm/dL (13.0-17.5); Hypochromasia Slight; MCH 30.7 pg (25.0-35.0); MCHC 32.5 g/dL (31.0-37.0); MCV 94.6 fL (80.0-100.0); Mean Platelet Volume 10.6; Platelet Count 223 k/uL (150-450); Poikilocytosis Slight; RBC 2.81 m/uL (4.30-5.90); RDW 15.4 % (11.5-15.5); WBC 8.6 k/uL (3.8-10.6)
[2022-03-16 20:51] LABS: Glucose,Whole Blood 110 mg/dL (70-110)
[2022-03-16] MEDS: PANTOPRAZOLE 40 MG/10 ML VIAL IVP SCH (20:58)
[2022-03-16] MEDS: ACETAMINOPHEN TAB 325 MG TAB PO PRN (20:59)
--- NOTE | 2022-03-16 22:48 | P.PN ---
Subjective Progress Note Date: 03/15/22 Principal diagnosis: Pneumonia Patient is a 86-year old male with a past medical history significant for hypertension diabetes COPD CVA assisted resident who was brought to the hospital for evaluation of increasing shortness of breath fatigue and weakness chest x-ray bibasilar infiltrate concerning for possible pneumonia. On today's evaluation that is 03/15/2022 the patient is afebrile the patient slightly more awake alert is currently breathing comfortably on 3 L nasal cannula patient denies having any chest pain he did have some cough not bring up any sputum no abdominal pain or diarrhea Objective - Vital Signs Vital signs: Vital Signs Temp 98.2 F 03/15/22 08:35 Pulse 98 03/15/22 12:30 Resp 22 03/15/22 12:30 BP 132/67 03/15/22 12:30 Pulse Ox 99 03/15/22 12:30 FiO2 Intake & Output 03/14/22 03/15/22 03/15/22 18:59 06:59 18:59 Intake Total 256 1188 Output Total 900 825 285 Balance -644 -825 903 Weight 61.5 kg 61.5 kg Intake: IV 20 Invasive Line 1 20 Intake, IV Titration 350 Amount Azithromycin 500 mg In 250 Sodium Chloride 0.9% 250 ml @ 250 mls/hr IVPB DAILY [facility] Rx#:[id number] Piperacillin-Tazobactam 3 100 .375 gm In Sodium Chloride 0.9% 100 ml @ 25 mls/hr IVPB Q8HR [facility] Rx# :[id number] Oral 236 838 Output: Urine 900 825 Straight 825 Post Void Residual 285 Other: Voiding Method Indwelling Catheter Diaper Diaper # Voids 1 0 # Bowel Movements 1 - Exam GENERAL DESCRIPTION: An elderly male lying in bed in no distress RESPIRATORY SYSTEM: Unlabored breathing , decreased breath sounds at bases HEART: S1 S2 regular rate and rhythm , ABDOMEN: Soft , no tenderness EXTREMITIES: No edema feet - Labs CBC & Chem 7: 03/16/22 18:01 03/16/22 08:19 Labs: Abnormal Lab Results - Last 24 Hours (Table) 03/14/22 03/14/22 03/15/22 Range/Units 16:25 20:32 05:56 POC Glucose (mg/dL) 364 H 360 H 240 H (70-110) mg/dL Ur Leukocyte Esterase (Negative) Urine WBC (0-5) /hpf Hyaline Casts (0-2) /lpf Urine Mucus (None) /hpf 03/15/22 03/15/22 Range/Units 11:37 11:38 POC Glucose (mg/dL) 336 H (70-110) mg/dL Ur Leukocyte Esterase Small H (Negative) Urine WBC 13 H (0-5) /hpf Hyaline Casts 3 H (0-2) /lpf Urine Mucus Rare H (None) /hpf Microbiology - Last 24 Hours (Table) 03/13/22 13:00 Blood Culture - Preliminary Blood No Growth after 48 hours 03/13/22 13:00 Blood Culture - Preliminary Blood No Growth after 48 hours Assessment and Plan (1) Pneumonia Current Visit: Yes Status: Acute Code(s): J18.9 - PNEUMONIA, UNSPECIFIED ORGANISM SNOMED Code(s): 659359470 Plan: 1patient present to hospital with increasing shortness of breath and cough in this patient who do have a history of COPD and also history of COVID-19 pneumonia now with evidence of bibasilar infiltrate with concern for possible pneumonia however the patient did not have any fever or elevated white count concern for possible COPD exacerbation rather than pneumonia. 2patient did have mildly elevated CRP and procalcitonin and sputum for gram stain culture and a questionable and collected. 3patient to continue Zosyn and monitor clinical course closely Time with Patient: Less than 30
--- NOTE | 2022-03-16 22:50 | P.PN ---
Subjective Progress Note Date: 03/16/22 Principal diagnosis: Pneumonia Patient is a 86-year old male with a past medical history significant for hypertension diabetes COPD CVA halfway resident who was brought to the hospital for evaluation of increasing shortness of breath fatigue and weakness chest x-ray bibasilar infiltrate concerning for possible pneumonia. Patient has been transferred to ICU concerning for GI bleed On today's evaluation that is 03/16/2022 the patient remains to be afebrile , the patient more awake alert today, the patient is currently breathing comfortably on 3 L nasal cannula patient denies having any chest pain , the patient did have some cough not bring up any sputum no abdominal pain Objective - Vital Signs Vital signs: Vital Signs Temp 97.8 F 03/16/22 08:00 Pulse 91 03/16/22 11:45 Resp 16 03/16/22 11:45 BP 91/64 03/16/22 11:45 Pulse Ox 99 03/16/22 10:00 FiO2 Intake & Output 03/15/22 03/16/22 03/16/22 18:59 06:59 18:59 Intake Total 1424 960 390 Output Total 285 1540 305 Balance 1139 -580 85 Weight 61.5 kg 62.2 kg Intake: IV 30 80 0.9 80 Invasive Line 2 30 Intake, IV Titration 350 Amount Azithromycin 500 mg In 250 Sodium Chloride 0.9% 250 ml @ 250 mls/hr IVPB DAILY [facility] Rx#:[id number] Piperacillin-Tazobactam 3 100 .375 gm In Sodium Chloride 0.9% 100 ml @ 25 mls/hr IVPB Q8HR [facility] Rx# :[id number] Oral 1074 Blood Product 930 310 As-1 Unit 0 310 [id number] As-1 Unit 310 [id number] Output: Urine 1540 305 Post Void Residual 285 Other: Voiding Method Diaper Indwelling Catheter Indwelling Catheter # Bowel Movements 3 1 1 - Exam GENERAL DESCRIPTION: An elderly male lying in bed in no distress RESPIRATORY SYSTEM: Unlabored breathing , decreased breath sounds at bases HEART: S1 S2 regular rate and rhythm , ABDOMEN: Soft , no tenderness EXTREMITIES: No edema feet - Labs CBC & Chem 7: 03/16/22 18:01 03/16/22 08:19 Labs: Abnormal Lab Results - Last 24 Hours (Table) 03/15/22 03/15/2203/15/22 Range/Units 08:18 11:38 16:40 RBC (4.30-5.90) m/uL Hgb (13.0-17.5) gm/dL Hct (39.0-53.0) % MCV (80.0-100.0) fL MCHC (31.0-37.0) g/dL Lymphocytes # (1.0-4.8) k/uL APTT (22.0-30.0) sec Potassium (3.5-5.1) mmol/L Carbon Dioxide (22-30) mmol/L BUN (9-20) mg/dL Creatinine (0.66-1.25) mg/dL Glucose (74-99) mg/dL POC Glucose (mg/dL) 131 H (70-110) mg/dL Calcium (8.4-10.2) mg/dL Procalcitonin 0.15 H (0.02-0.09) ng/mL Ur Leukocyte Esterase Small H (Negative) Urine WBC 13 H (0-5) /hpf Hyaline Casts 3 H (0-2) /lpf Urine Mucus Rare H (None) /hpf Crossmatch 03/15/22 03/15/22 03/15/22 Range/Units 19:59 23:36 23:38 RBC 2.44 L (4.30-5.90) m/uL Hgb 7.4 L (13.0-17.5) gm/dL Hct 25.8 L (39.0-53.0) % MCV 105.7 H D (80.0-100.0) fL MCHC 28.7 L (31.0-37.0) g/dL Lymphocytes # (1.0-4.8) k/uL APTT (22.0-30.0) sec Potassium (3.5-5.1) mmol/L Carbon Dioxide (22-30) mmol/L BUN (9-20) mg/dL Creatinine (0.66-1.25) mg/dL Glucose (74-99) mg/dL POC Glucose (mg/dL) 313 H 344 H (70-110) mg/dL Calcium (8.4-10.2) mg/dL Procalcitonin (0.02-0.09) ng/mL Ur Leukocyte Esterase (Negative) Urine WBC (0-5) /hpf Hyaline Casts (0-2) /lpf Urine Mucus (None) /hpf Crossmatch 03/15/22 03/15/22 03/16/22 Range/Units 23:40 23:45 00:30 RBC (4.30-5.90) m/uL Hgb (13.0-17.5) gm/dL Hct (39.0-53.0) % MCV (80.0-100.0) fL MCHC (31.0-37.0) g/dL Lymphocytes # (1.0-4.8) k/uL APTT 21.6 L (22.0-30.0) sec Potassium (3.5-5.1) mmol/L Carbon Dioxide (22-30) mmol/L BUN (9-20) mg/dL Creatinine (0.66-1.25) mg/dL Glucose (74-99) mg/dL POC Glucose (mg/dL) 294 H (70-110) mg/dL Calcium (8.4-10.2) mg/dL Procalcitonin (0.02-0.09) ng/mL Ur Leukocyte Esterase (Negative) Urine WBC (0-5) /hpf Hyaline Casts (0-2) /lpf Urine Mucus (None) /hpf Crossmatch See Detail 03/16/22 03/16/22 03/16/22 Range/Units 06:47 08:19 08:19 RBC 3.02 L (4.30-5.90) m/uL Hgb 9.3 L D (13.0-17.5) gm/dL Hct 28.7 L (39.0-53.0) % MCV (80.0-100.0) fL MCHC (31.0-37.0) g/dL Lymphocytes # 0.3 L (1.0-4.8) k/uL APTT (22.0-30.0) sec Potassium 5.5 H (3.5-5.1) mmol/L Carbon Dioxide 34 H (22-30) mmol/L BUN 63 H (9-20) mg/dL Creatinine 1.71 H (0.66-1.25) mg/dL Glucose 108 H (74-99) mg/dL POC Glucose (mg/dL) 132 H (70-110) mg/dL Calcium 7.8 L (8.4-10.2) mg/dL Procalcitonin (0.02-0.09) ng/mL Ur Leukocyte Esterase (Negative) Urine WBC (0-5) /hpf Hyaline Casts (0-2) /lpf Urine Mucus (None) /hpf Crossmatch Microbiology - Last 24 Hours (Table) 03/13/22 13:00 Blood Culture - Preliminary Blood No Growth after 48 hours 03/13/22 13:00 Blood Culture - Preliminary Blood No Growth after 48 hours Assessment and Plan (1) Pneumonia Current Visit: Yes Status: Acute Code(s): J18.9 - PNEUMONIA, UNSPECIFIED ORGANISM SNOMED Code(s): 258417058 Plan: 1patient present to hospital with increasing shortness of breath and cough in this patient who do have a history of COPD and also history of COVID-19 pneumonia now with evidence of bibasilar infiltrate with concern for possible pneumonia however the patient did not have any fever or elevated white count concern for possible COPD exacerbation underlying pneumonia less likely but not returning started. 2patient did have mildly elevated CRP and procalcitonin and sputum for gram sta in culture and a questionable and collected. 3patient seemed to have shown some clinical improvement as for his respiratory status is concerned and will continue Zosyn and monitor clinical course c losely Time with Patient: Less than 30
[2022-03-17] MEDS: PIPERACILLIN-TAZOBACTAM 3.375 GM in SODIUM CHLORIDE 0.9% 100 ML IVPB SCH ×2 (00:12→09:11)
[2022-03-17 00:37] LABS: HCT 21.6 % (39.0-53.0); HGB 7.3 gm/dL (13.0-17.5); Hypochromasia Slight; MCH 32.1 pg (25.0-35.0); MCHC 33.9 g/dL (31.0-37.0); MCV 94.5 fL (80.0-100.0); Mean Platelet Volume 9.7; Platelet Count 179 k/uL (150-450); Poikilocytosis Slight; RBC 2.28 m/uL (4.30-5.90); RDW 14.9 % (11.5-15.5); WBC 5.9 k/uL (3.8-10.6)
--- NOTE | 2022-03-17 04:12 | PN ---
PROGRESS NOTE DATE OF SERVICE: 03/16/2022 SUBJECTIVE: This 86-year-old gentleman, who was admitted with bilateral pneumonia, also had diabetes mellitus and COPD, also the patient had ischemia with shortness of breath last night. The patient has significant GI bleed. Two units of transfusion has been given. The most recent hemoglobin is 9. The patient transferred to ICU. Dr. Roy is following the patient closely. Possible RBC tagged scan also being arranged. No chest pain. No palpitations. PAST MEDICAL HISTORY: Reviewed. REVIEW OF SYSTEMS: A 14-point review of systems is negative as mentioned earlier. CURRENT MEDICATIONS: Reviewed and include DuoNeb. Dose and rest of the medication noted. PHYSICAL EXAMINATION: VITAL SIGNS: Pulse is 91, blood pressure 91/64, respirations 16. HEENT: Conjunctivae normal. NECK: No JVD. CARDIOVASCULAR: S1, S2. RESPIRATION: Breath sounds diminished in the bases. Bilateral scattered rhonchi and crackles. Expiratory wheezing. ABDOMEN: Soft, nontender. No mass palpable. No guarding. No rigidity. LEGS: No edema. NERVOUS SYSTEM: Nonfocal. LABORATORY DATA: Reviewed. Hemoglobin 9.1. The rest of the labs are reviewed. ASSESSMENT: 1. Bilateral pneumonia with possibly aspiration. 2. Acute gastrointestinal bleed with acute blood loss anemia. 3. Diabetes mellitus, type 2. 4. Chronic obstructive pulmonary disease. 5. Hypertension. 6. Hyperlipidemia. 7. History of cerebrovascular accident/transient ischemic attack. RECOMMENDATIONS: I recommend to continue current medications and symptomatic treatment. As mentioned earlier, the patient is currently transferred to ICU. The creatinine is also elevated. Hemoglobin is 9 after transfusion. The prognosis is extremely guarded, and further recommendations to follow. RBC tagged scan as mentioned as per Surgery. Closely follow with Surgery as well as family specialist, Dr. Dickens. Continue with antibiotics. Prognosis is guarded. Further recommendations to follow. MMODL / IJN: [id number] /
[2022-03-17 04:13] LABS: Basophils % (A) 0 %; Eosinophils % (A) 0 %; HCT 21.2 % (39.0-53.0); HGB 7.2 gm/dL (13.0-17.5); Hypochromasia Slight; Lymphocytes # (A) 0.4 k/uL (1.0-4.8); Lymphocytes % (A) 7 %; MCH 32.5 pg (25.0-35.0); MCHC 34.1 g/dL (31.0-37.0); MCV 95.3 fL (80.0-100.0); Mean Platelet Volume 10.3; Monocytes # (A) 0.4 k/uL (0-1.0); Monocytes % (A) 7 %; Neutrophils % (A) 84 %; Platelet Count 201 k/uL (150-450); Poikilocytosis Slight; RBC 2.22 m/uL (4.30-5.90); WBC 5.9 k/uL (3.8-10.6)
[2022-03-17 04:45] LABS: Calcium 7.9 mg/dL (8.4-10.2); Potassium 4.9 mmol/L (3.5-5.1)
--- NOTE | 2022-03-17 06:25 | XR ---
EXAMINATION TYPE: XR chest 1V portable DATE OF EXAM: 03/17/2022 CLINICAL HISTORY: Difficulty breathing and CHF progress study. TECHNIQUE: Single AP portable semiupright view of the chest is obtained. COMPARISON: Chest x-ray from one day earlier and older studies FINDINGS: Cardiac silhouette size stable and within normal limits. Persistent central vascular conge stion and small to moderate-sized bilateral pleural effusions. Bibasilar opacities favor associated c ompressive atelectasis. Osseous structures are intact. IMPRESSION: Findings consistent with CHF exacerbation or fluid overload state remain present. No sign ificant change from one day earlier.
[2022-03-17 06:39] LABS: Glucose,Whole Blood 92 mg/dL (70-110)
[2022-03-17] MEDS: INSULIN DETEMIR (LEVEMIR) 100 UNIT/ML SYR SQ SCH (06:51)
[2022-03-17] MEDS: INSULIN ASPART (NovoLOG) 100 UNIT/ML VIAL SQ SCH (06:51)
[2022-03-17] MEDS: SYMBICORT 160-4.5 MCG INHALER INHALATION SCH (07:50)
[2022-03-17] MEDS: IPRATROPIUM-ALBUTEROL 3 ML NEB INHALATION SCH ×2 (07:51→11:38)
[2022-03-17 08:53] VITALS: TEMP 98
[2022-03-17] MEDS: METOPROLOL SUCCINATE (ER) 50 MG TAB.ER.24H PO SCH (09:02)
[2022-03-17] MEDS: POTASSIUM CHLORIDE ER 10 MEQ TAB.ER.PRT PO SCH (09:03)
[2022-03-17] MEDS: FUROSEMIDE 10 MG/ML 4 ML VIAL IV SCH (09:11)
[2022-03-17] MEDS: methylPREDNISolone SOD SUCCI 40 MG/ML 1 ML VIAL IV SCH (09:11)
[2022-03-17] MEDS: PANTOPRAZOLE 40 MG/10 ML VIAL IVP SCH (09:11)
[2022-03-17] MEDS: TAMSULOSIN 0.4 MG CAP.ER.24H PO SCH (09:11)
[2022-03-17] MEDS: MAGNESIUM OXIDE 400 MG TAB PO SCH (09:11)
[2022-03-17 10:17] VITALS: BP 87/67; RESP 30
[2022-03-17 10:45] LABS: Glucose,Whole Blood 102 mg/dL (70-110)
[2022-03-17] MEDS: propofoL 0 ML IV ONE ×2 (11:00→12:47)
[2022-03-17] MEDS ORDERED: NOREPINEPHRIN 4 MG-0.9% NS PMX 4 MG/250 ML ML IV ONE (11:01)
[2022-03-17] MEDS: propofoL 100 ML IV ONE ×2 (11:01→12:47)
[2022-03-17] MEDS ORDERED: NOREPINEPHRINE 4 MG in SODIUM CHLORIDE 0.9% 250 ML IV SCH (11:02)
[2022-03-17 11:29] LABS: ABG Base Excess -6.5 mmol/L; ABG HCO3 18 mmol/L (21-25); ABG PCO2 26 mmHg (35-45); ABG PH 7.45 (7.35-7.45); ABG PO2 >400 mmHg (83-108); ABG TCO2 18 mmol/L (19-24)
[2022-03-17 11:31] LABS: Allen Test Performed? no
[2022-03-17] MEDS ORDERED: SODIUM CHLORIDE 0.9% 500 ML 500 ML IV ONE (11:36)
[2022-03-17] MEDS ORDERED: SODIUM CHLORIDE 0.9% 1,000 ML IV SCH (11:45)
[2022-03-17 11:47] VITALS: PULSE 75
[2022-03-17 11:51] LABS: Glucose,Whole Blood 59 mg/dL (70-110)
[2022-03-17] MEDS ORDERED: VASOPRESSIN 20 UNIT in SODIUM CHLORIDE 0.9% 50 ML IV SCH (12:00)
--- NOTE | 2022-03-17 12:02 | XR ---
EXAMINATION TYPE: XR chest 1V portable DATE OF EXAM: 03/17/2022 CLINICAL HISTORY: Difficulty breathing have to be intubated. TECHNIQUE: Single AP portable semiupright view of the chest is obtained. COMPARISON: Chest x-ray from earlier today and older studies FINDINGS: There is new endotracheal tube terminating at the aortic knob level approximately 3 cm dis tance from lance. There is new orogastric tube projecting below the diaphragm. Cardiac silhouette size stable and within normal limits. Persistent bibasilar opacities. Osseous stru ctures are intact. IMPRESSION: 1. Satisfactory positioning of new endotracheal and orogastric tubes. 2. Persistent small to moderate-sized bilateral pleural effusions and mild central vascular congestio n. Correlate for fluid overload state.
[2022-03-17 12:13] LABS: Hypochromasia Moderate; MCH 30.6 pg (25.0-35.0); MCHC 31.7 g/dL (31.0-37.0); MCV 96.5 fL (80.0-100.0); Mean Platelet Volume 9.8; Platelet Count 198 k/uL (150-450); Poikilocytosis Slight; RBC 1.84 m/uL (4.30-5.90); RDW 15.4 % (11.5-15.5); WBC 3.9 k/uL (3.8-10.6)
--- NOTE | 2022-03-17 12:23 | P.PN ---
Subjective Progress Note Date: 03/17/22 Principal diagnosis: Acute diastolic congestive heart failure, possible pneumonia 86-year-old male, who is a very poor historian. He was seen in room 367. The patient apparently has a history of COPD from previous tobacco use, diabetes, hypertension, gastroesophageal reflux disease, hyperlipidemia, atrial fibrillation with RVR, acute kidney injury, and CVA. The patient was hospitalized in January of this year, with episode of coronavirus infection, without coronavirus associated pneumonia. The patient presented to the hospital on March 13, with increasing shortness of breath, fatigue, and weakness. A chest x-ray showed bilateral pleural effusions. He was admitted with a diagnosis of possible pneumonia. The patient himself is not a particularly good historian. Currently, he's on 4 L of oxygen. He's not receiving any IV fluids. I did order a pro-calcitonin level and an N-terminal proBNP. He's currently on Zosyn and azithromycin. Laboratory data from March 13 shows a white count of 5.8, hemoglobin 8.8, hematocrit 27.3, and a normal platelet count. Sodium 137, potassium 4.7, chlorides 99, CO2 31, BUN 56, creatinine 1.28. Sugar was 385 and his troponin was 0.158. The patient's N-terminal proBNP is 23,000. Pro- calcitonin level is currently pending. Chest x-rays consistent with bilateral pleural effusions, and cephalization, most consistent with CHF, and not pneumonia. The patient is seen today 03/15/2022 in follow-up on the selective care unit. He is currently resting comfortably in bed. Awake and alert in no acute distress. He is dyspneic with conversation. Dyspneic with minimal exertion. He is maintaining O2 saturations in the upper 90s on 3 L/m per nasal cannula. He did undergo a barium swallow which revealed no penetration or aspiration observed. Blood cultures reveal no growth. Blood glucose 336. C-reactive protein less than 0.5. Urinalysis negative. He is continue on Symbicort, DuoNeb inhalations, IV site Medrol. He remains on antibiotics in the form of Zosyn. Continued on IV diuretics. Correa catheter was placed. Currently in a - 1.5 L balance. Patient was reevaluated today on 03/16/22, patient had to be transferred to the ICU last night mostly because of sudden episode of GI bleeding with bright red b lood per rectum. Patient had a drop in his hemoglobin down to 7.4, and he was actively bleeding on the floor. Patient received 2 units of packed RBCs when he was transferred to the ICU, and his hemoglobin this morning is 9.3 after 2 units given. Continues to have intermittent episodes of bright red blood per rectum. No GI coverage, surgeon was consulted, being evaluated for surgery for possible workup of his GI bleeding. At any rate patient continues to be on diuretics for his bilateral pleural effusions mostly secondary to diastolic congestive heart failure, remains on antibiotics in the form of Zosyn, although his pro- calcitonin level was not significantly elevated. Pulmonary-dao the patient seems to be doing fairly well. Patient is not in any distress, and I did recommend more Lasix to be given this morning especially after he received 2 units of packed RBCs. Patient was reevaluated today on 03/17/22, patient was relatively stable in the ICU this morning, I rounded on the patient earlier today, and his hemoglobin was noted to be 7.2, felt that the patient does not need to have blood transfusion since hemoglobin is holding at 7.2, and there was no evidence of active clinical bleeding. His hemoglobin yesterday was 7.3, patient received a total of 2 units of packed RBCs since admission. And again there was no clear-cut evidence of active bleeding. I rounded on the patient earlier today, and 2 hours later I was notified that the patient became unresponsive and hypotensive. Patient required immediate intubation then I came down to evaluate the patient, patient was profoundly hypotensive and he was already intubated and mechanically ventilated. As soon as I evaluated the patient, I established a right femoral triple-lumen catheter on emergency basis, I also established a right brachial arterial line. Patient was given fluid boluses, he was also given norepi nephrine, and I was recommending vasopressin if he remains hypertensive. ABG after arterial line placement showed a pO2 of more than 400 pCO2 of 26 pH of 7.45, hence his tidal volume was cut down to 400, maintained assist control rate of 14, and I cut down his FiO2 to 50% from 100%. PEEP was kept at 5. At any rate I recommended blood to be transfused because the hemoglobin on the ABG was probably about 6.5. And I recommended a stat CBC stat blood transfusion, and I recommended a CT of the brain without contrast. However later on I was notified by the nurses that his family is at bedside, and they are requesting no CODE STATUS. And the patient seems to be dropping his blood pressure constantly. Hence I am recommending comfort care measures at this point. Objective - Vital Signs Vital signs: Vital Signs Temp 98.0 F 03/17/22 08:00 Pulse 75 03/17/22 11:46 Resp 30 H 03/17/22 10:00 BP 87/67 03/17/22 10:00 Pulse Ox 94 L 03/17/22 10:00 FiO2 50 03/17/22 11:31 Intake & Output 03/16/22 03/17/22 03/17/22 18:59 06:59 18:59 Intake Total 590 500 180 Output Total 500 845 54 Balance 90 -345 126 Weight 61.1 kg Intake: IV 280 260 180 0.9 80 160 80 Piperacillin-Tazobactam 3 200 100 100 .375 gm In Sodium Chloride 0.9% 100 ml @ 25 mls/hr IVPB Q8HR [facility] Rx# :[id number] Oral 240 Blood Product 310 Rc As-1 Unit 310 [id number] Output: Urine 500 845 54 Other: Voiding Method Indwelling Catheter Indwelling Catheter Indwelling Catheter # Bowel Movements 1 1 - Exam Physical Exam: Revealed an 86-year-old white male, intubated mechanically ventilated. Head: Atraumatic, normocephalic. Orogastric tube and endotracheal tube are intact. HEENT:[Neck is supple.] [No neck masses.] [No thyromegaly.] [No JVD.] Chest: Symmetrical chest expansion diminished breath sound bilaterally no crackles or rhonchi or wheezes Cardiac Exam: Distant S1 and S2, no S3 gallop, no murmur. Abdomen: [Soft, nontender, no megaly, no rebound, no guarding, normal bowel s ounds.] Extremities: [No clubbing, no edema, no cyanosis.] Good pulses bilaterally. Neurological Exam: Unresponsive to any stimuli, however I evaluated the patient this time shortly after he was intubated Skin: No rashes. Musculoskeletal: No deformities. - Labs CBC & Chem 7: 03/17/22 03:50 03/17/22 03:50 Labs: Abnormal Lab Results - Last 24 Hours (Table) 03/15/22 03/16/22 03/16/22 Range/Units 23:40 11:59 12:33 RBC 2.81 L (4.30-5.90) m/uL Hgb 9.0 L (13.0-17.5) gm/dL Hct 27.1 L (39.0-53.0) % Lymphocytes # (1.0-4.8) k/uL ABG pCO2 (35-45) mmHg ABG pO2 (83-108) mmHg ABG HCO3 (21-25) mmol/L ABG Total CO2 (19-24) mmol/L ABG O2 Saturation (94-97) % Carbon Dioxide (22-30) mmol/L BUN (9-20) mg/dL Creatinine (0.66-1.25) mg/dL Glucose (74-99) mg/dL POC Glucose (mg/dL) 134 H (70-110) mg/dL Calcium (8.4-10.2) mg/dL Crossmatch See Detail 03/16/22 03/16/22 03/16/22 Range/Units 17:30 18:01 23:46 RBC 2.81 L 2.28 L (4.30-5.90) m/uL Hgb 8.6 L 7.3 L (13.0-17.5) gm/dL Hct 26.6 L 21.6 L (39.0-53.0) % Lymphocytes # (1.0-4.8) k/uL ABG pCO2 (35-45) mmHg ABG pO2 (83-108) mmHg ABG HCO3 (21-25) mmol/L ABG Total CO2 (19-24) mmol/L ABG O2 Saturation (94-97) % Carbon Dioxide (22-30) mmol/L BUN (9-20) mg/dL Creatinine (0.66-1.25) mg/dL Glucose (74-99) mg/dL POC Glucose (mg/dL) 111 H (70-110) mg/dL Calcium (8.4-10.2) mg/dL Crossmatch 03/17/22 03/17/22 03/17/22 Range/Units 03:50 03:50 11:27 RBC 2.22 L (4.30-5.90) m/uL Hgb 7.2 L (13.0-17.5) gm/dL Hct 21.2 L (39.0-53.0) % Lymphocytes # 0.4 L (1.0-4.8) k/uL ABG pCO2 26 L (35-45) mmHg ABG pO2 >400 H (83-108) mmHg ABG HCO3 18 L (21-25) mmol/L ABG Total CO2 18 L (19-24) mmol/L ABG O2 Saturation 100.0 H (94-97) % Carbon Dioxide 32 H (22-30) mmol/L BUN 77 H (9-20) mg/dL Creatinine 2.06 H (0.66-1.25) mg/dL Glucose 102 H (74-99) mg/dL POC Glucose (mg/dL) (70-110) mg/dL Calcium 7.9 L (8.4-10.2) mg/dL Crossmatch 03/17/22 Range/Units 11:50 RBC (4.30-5.90) m/uL Hgb (13.0-17.5) gm/dL Hct (39.0-53.0) % Lymphocytes # (1.0-4.8) k/uL ABG pCO2 (35-45) mmHg ABG pO2 (83-108) mmHg ABG HCO3 (21-25) mmol/L ABG Total CO2 (19-24) mmol/L ABG O2 Saturation (94-97) % Carbon Dioxide (22-30) mmol/L BUN (9-20) mg/dL Creatinine (0.66-1.25) mg/dL Glucose (74-99) mg/dL POC Glucose (mg/dL) 59 L (70-110) mg/dL Calcium (8.4-10.2) mg/dL Crossmatch Microbiology - Last 24 Hours (Table) 03/13/22 13:00 Blood Culture - Preliminary Blood No Growth after 72 hours 03/13/22 13:00 Blood Culture - Preliminary Blood No Growth after 72 hours Assessment and Plan Assessment: Impression: Profound hypotension, most likely hypovolemic in nature and most likely to active GI bleeding./Hypovolemic hypotension. Patient was intubated mostly because of his unresponsiveness and unable to protect his airways Acute lower GI bleeding, exact etiology and source is not clear, possibly lower GI. Shortness of breath and acute hypoxic respiratory failure secondary to diastolic congestive heart failure, acute. Patient presented with bilateral pleural effusions and elevated BNP level. Possible pneumonia although clinically it's doubtful pro calcitonin level is only 0.14, nonetheless the patient is empirically on Zosyn. History of underlying COPD presently inactive. Type 2 diabetes. Benign essential hypertension. Dyslipidemia. Atrial fibrillation with RVR. Acute kidney injury. History of CVA. Recommendation: Ventilatory support, vent settings as noted above. Stat CBC and stat transfusion of 1 unit of packed RBCs for now. Start patient on norepinephrine and titrate accordingly use vasopressin if needed Fluid boluses 500 mL of saline 2. Continue bronchodilators. Overall prognosis is extremely poor and guarded I was made aware by the nurses that family came at bedside shortly after he was intubated and recommended DO NOT RESUSCITATE CODE STATUS. In the meantime continue present supportive care measures. Overall prognosis is definitely guarded. Critical care time is over 30 minutes not including the time spent on procedures Time with Patient: Greater than 30
--- NOTE | 2022-03-17 12:28 | OP ---
OPERATIVE REPORT PROCEDURE PERFORMED: Placement of a right femoral triple-lumen catheter. PREOPERATIVE DIAGNOSES: Profound hypotension and unresponsiveness. POSTOPERATIVE DIAGNOSES: Profound hypotension and unresponsiveness. ANESTHESIA USED: 2 mL of 1% lidocaine. DESCRIPTION OF PROCEDURE: The patient was placed in the supine position, the right groin was prepared in a sterile fashion, and drapes were applied. Lidocaine was injected in the right groin, and then the right femoral vein was cannulated, a guidewire was placed, a triple-lumen catheter was inserted over the guidewire, and the guidewire was removed. Good blood flow noted in the 3 different ports of the triple-lumen catheter. The line was secured using 3-0 silk sutures. No evidence of any immediate complications. Procedure was well tolerated. MMODL / IJN: [id number] /
[2022-03-17 12:32] LABS: HCT 17.8 % (39.0-53.0); HGB 5.6 gm/dL (13.0-17.5)
--- NOTE | 2022-03-17 15:34 | OP ---
OPERATIVE REPORT PROCEDURE PERFORMED: Placement of a right brachial arterial line. PREOPERATIVE DIAGNOSIS: Profound hypotension, and this line was placed on emergent basis. POSTOPERATIVE DIAGNOSIS: Profound hypotension, and this line was placed on emergent basis. ANESTHESIA USED: None deployed. DESCRIPTION OF PROCEDURE: The right brachial region was prepared in a sterile fashion, and drapes were applied. The femoral artery was located via Doppler. Then, it was cannulated, a guidewire was placed, a Cook catheter was inserted over the guidewire, and the guidewire was removed. Good blood flow noted, good waveform, no complications. Line was secured using 3-0 silk sutures. MMODL / IJN: [id number] /
--- NOTE | 2022-03-17 15:42 | P.PN ---
Subjective Progress Note Date: 03/17/22 Patient seen and examined around 11:00 this morning CHIEF COMPLAINT: CHF exacerbation HISTORY OF PRESENT ILLNESS: Patient currently in the ICU with respiratory failure and CHF exacerbation. Surgical service is following in regards to patient's GI bleed. Patient did have a bloody bowel movement this morning. Patient was being intubated during my morning rounds. Apparently he became unresponsive and hypotensive. His hemoglobin from the morning was 7.2. Tagged RBC scan showed no evidence of GI bleed. Patient's initial plans for endoscopy during this admission were canceled due to him being unstable. A repeat CBC was done hemoglobin was at 5.6. Critical care doctor had ordered IV fluids and blood transfusion. However, family requested a no CODE STATUS. Patient was placed on comfort care measures and . PHYSICAL EXAM: VITAL SIGNS: Reviewed GENERAL: Evidence of acute distress. Patient being intubated HEENT: No sclera icterus. Head is atraumatic, normocephalic. NECK: Supple without lymphadenopathy. CHEST: Breathing unlabored CARDIOVASCULAR: Palpable 2+ radial pulses. ABDOMEN: Soft. Nondistended. Nontender. MUSCULOSKELETAL: No clubbing or cyanosis. NEUROLOGIC: Unresponsive SKin: no rashes ASSESSMENT: 1. Acute GI bleed with bright red blood 2. Acute hypoxic respiratory failure secondary to acute CHF exacerbation 3. Bilateral pleural effusions 4. History of COPD 5. Diabetes mellitus type 2 6. History of A. fib 7. History of CVA 8. Hyperkalemia 9. Acute kidney injury 10. Hypotension and unresponsiveness PLAN: -Patient required intubation and mechanical ventilation -Patient was placed on comfort care measures Physician [employer] note has been reviewed by physician. Signing provider agrees with the documented findings, assessment, and plan of care. Objective - Vital Signs Vital signs: Vital Signs Temp 98.0 F 03/17/22 08:00 Pulse 75 03/17/22 11:46 Resp 30 H 03/17/22 10:00 BP 87/67 03/17/22 10:00 Pulse Ox 94 L 03/17/22 10:00 FiO2 50 03/17/22 11:31 Intake & Output 03/16/22 03/17/22 03/17/22 18:59 06:59 18:59 Intake Total 590 500 180 Output Total 500 845 54 Balance 90 -345 126 Weight 61.1 kg Intake: IV 280 260 180 0.9 80 160 80 Piperacillin-Tazobactam 3 200 100 100 .375 gm In Sodium Chloride 0.9% 100 ml @ 25 mls/hr IVPB Q8HR [facility] Rx# :[id number] Oral 240 Blood Product 310 Rc As-1 Unit 310 [id number] Output: Urine 500 845 54 Other: Voiding Method Indwelling Catheter Indwelling Catheter Indwelling Catheter # Bowel Movements 1 1 - Labs CBC & Chem 7: 03/17/22 11:34 03/17/22 03:50 Labs: Abnormal Lab Results - Last 24 Hours (Table) 03/15/22 03/16/22 03/16/22 Range/Units 23:40 17:30 18:01 RBC 2.81 L (4.30-5.90) m/uL Hgb 8.6 L (13.0-17.5) gm/dL Hct 26.6 L (39.0-53.0) % Lymphocytes # (1.0-4.8) k/uL ABG pCO2 (35-45) mmHg ABG pO2 (83-108) mmHg ABG HCO3 (21-25) mmol/L ABG Total CO2 (19-24) mmol/L ABG O2 Saturation (94-97) % Carbon Dioxide (22-30) mmol/L BUN (9-20) mg/dL Creatinine (0.66-1.25) mg/dL Glucose (74-99) mg/dL POC Glucose (mg/dL) 111 H (70-110) mg/dL Calcium (8.4-10.2) mg/dL Magnesium (1.6-2.3) mg/dL Crossmatch See Detail 03/16/22 03/17/22 03/17/22 Range/Units 23:46 03:50 03:50 RBC 2.28 L 2.22 L (4.30-5.90) m/uL Hgb 7.3 L 7.2 L (13.0-17.5) gm/dL Hct 21.6 L 21.2 L (39.0-53.0) % Lymphocytes # 0.4 L (1.0-4.8) k/uL ABG pCO2 (35-45) mmHg ABG pO2 (83-108) mmHg ABG HCO3 (21-25) mmol/L ABG Total CO2 (19-24) mmol/L ABG O2 Saturation (94-97) % Carbon Dioxide 32 H (22-30) mmol/L BUN 77 H (9-20) mg/dL Creatinine 2.06 H (0.66-1.25) mg/dL Glucose 102 H (74-99) mg/dL POC Glucose (mg/dL) (70-110) mg/dL Calcium 7.9 L (8.4-10.2) mg/dL Magnesium (1.6-2.3) mg/dL Crossmatch 03/17/22 03/17/22 03/17/22 Range/Units 11:27 11:34 11:50 RBC 1.84 L (4.30-5.90) m/uL Hgb 5.6 L* D (13.0-17.5) gm/dL Hct 17.8 L* (39.0-53.0) % Lymphocytes # (1.0-4.8) k/uL ABG pCO2 26 L (35-45) mmHg ABG pO2 >400 H (83-108) mmHg ABG HCO3 18 L (21-25) mmol/L ABG Total CO2 18 L (19-24) mmol/L ABG O2 Saturation 100.0 H (94-97) % Carbon Dioxide (22-30) mmol/L BUN (9-20) mg/dL Creatinine (0.66-1.25) mg/dL Glucose (74-99) mg/dL POC Glucose (mg/dL) 59 L (70-110) mg/dL Calcium (8.4-10.2) mg/dL Magnesium (1.6-2.3) mg/dL Crossmatch 03/17/22 Range/Units 12:00 RBC (4.30-5.90) m/uL Hgb (13.0-17.5) gm/dL Hct (39.0-53.0) % Lymphocytes # (1.0-4.8) k/uL ABG pCO2 (35-45) mmHg ABG pO2 (83-108) mmHg ABG HCO3 (21-25) mmol/L ABG Total CO2 (19-24) mmol/L ABG O2 Saturation (94-97) % Carbon Dioxide (22-30) mmol/L BUN (9-20) mg/dL Creatinine (0.66-1.25) mg/dL Glucose (74-99) mg/dL POC Glucose (mg/dL) (70-110) mg/dL Calcium (8.4-10.2) mg/dL Magnesium 2.6 H (1.6-2.3) mg/dL Crossmatch Microbiology - Last 24 Hours (Table) 03/13/22 13:00 Blood Culture - Preliminary Blood No Growth after 96 hours 03/13/22 13:00 Blood Culture - Preliminary Blood No Growth after 96 hours
--- NOTE | 2022-03-17 21:04 | DS ---
DISCHARGE SUMMARY PRELIMINARY CAUSE OF : COPD. OTHER DIAGNOSES: 1. Bilateral pneumonia with possibly aspiration. 2. Chronic obstructive pulmonary disease exacerbation. 3. Acute gastrointestinal bleed with acute blood loss anemia. 4. Diabetes type 2. 5. Hypertension. 6. Hyperlipidemia. 7. History of cerebrovascular accident, transient ischemic attack. HISTORY OF PRESENT ILLNESS: This is an 86-year-old gentleman with a past medical history of multiple problems including COPD, who was admitted with significant shortness of breath and multiple other medical problems. The patient was found to have bilateral pneumonia. The patient was intensively treated with bronchodilators, steroids and antibiotics. The patient made some improvement initially, but subsequently the patient developed acute GI bleed and the hemoglobin was monitored. The patient received multiple units of transfusion, but however RBC tag study was not able to document any active bleeding and Surgery saw the patient. Please refer to the surgical notes and Intensive Care, Dr. Dickens's notes for further information. The patient became progressively unresponsive and the patient succumbed to his illnesses on 03/17/2022 after a bout of intubation. Otherwise, prognosis was extremely guarded throughout the hospitalization and see multiple consultation and progress notes for further details. MMODL / IJN: [id number] /
--- NOTE | 2022-03-24 22:13 | P.PN ---
Subjective Progress Note Date: 03/17/22 Principal diagnosis: Pneumonia Patient is a 86-year old male with a past medical history significant for hypertension diabetes COPD CVA half-way resident who was brought to the hospital for evaluation of increasing shortness of breath fatigue and weakness chest x-ray bibasilar infiltrate concerning for possible pneumonia. Patient has been transferred to ICU concerning for GI bleed On today's evaluation that is 03/17/2022 the patient continues to be afebrile , the patient is breathing comfortably on 3 L nasal cannula patient denies having any chest pain , the patient did have some cough not bring up any sputum no abdominal pain , the patient did have a bloody bowel movement this morning Objective - Vital Signs Vital signs: Vital Signs Temp 98.0 F 03/17/22 08:00 Pulse 75 03/17/22 11:46 Resp 30 H 03/17/22 10:00 BP 87/67 03/17/22 10:00 Pulse Ox 94 L 03/17/22 10:00 FiO2 50 03/17/22 11:31 Intake & Output 03/16/22 03/17/22 03/17/22 18:59 06:59 18:59 Intake Total 590 500 180 Output Total 500 845 54 Balance 90 -345 126 Weight 61.1 kg Intake: IV 280 260 180 0.9 80 160 80 Piperacillin-Tazobactam 3 200 100 100 .375 gm In Sodium Chloride 0.9% 100 ml @ 25 mls/hr IVPB Q8HR [facility] Rx# :[id number] Oral 240 Blood Product 310 Rc As-1 Unit 310 [id number] Output: Urine 500 845 54 Other: Voiding Method Indwelling Catheter Indwelling Catheter Indwelling Catheter # Bowel Movements 1 1 - Exam GENERAL DESCRIPTION: An elderly male lying in bed in no distress RESPIRATORY SYSTEM: Unlabored breathing , decreased breath sounds at bases HEART: S1 S2 regular rate and rhythm , ABDOMEN: Soft , no tenderness EXTREMITIES: No edema feet - Labs CBC & Chem 7: 03/17/22 11:34 03/17/22 03:50 Labs: Abnormal Lab Results - Last 24 Hours (Table) 03/15/22 03/16/22 03/16/22 Range/Units 23:40 17:30 18:01 RBC 2.81 L (4.30-5.90) m/uL Hgb 8.6 L (13.0-17.5) gm/dL Hct 26.6 L (39.0-53.0) % Lymphocytes # (1.0-4.8) k/uL ABG pCO2 (35-45) mmHg ABG pO2 (83-108) mmHg ABG HCO3 (21-25) mmol/L ABG Total CO2 (19-24) mmol/L ABG O2 Saturation (94-97) % Carbon Dioxide (22-30) mmol/L BUN (9-20) mg/dL Creatinine (0.66-1.25) mg/dL Glucose (74-99) mg/dL POC Glucose (mg/dL) 111 H (70-110) mg/dL Calcium (8.4-10.2) mg/dL Magnesium (1.6-2.3) mg/dL Crossmatch See Detail 03/16/22 03/17/22 03/17/22 Range/Units 23:46 03:50 03:50 RBC 2.28 L 2.22 L (4.30-5.90) m/uL Hgb 7.3 L 7.2 L (13.0-17.5) gm/dL Hct 21.6 L 21.2 L (39.0-53.0) % Lymphocytes # 0.4 L (1.0-4.8) k/uL ABG pCO2 (35-45) mmHg ABG pO2 (83-108) mmHg ABG HCO3 (21-25) mmol/L ABG Total CO2 (19-24) mmol/L ABG O2 Saturation (94-97) % Carbon Dioxide 32 H (22-30) mmol/L BUN 77 H (9-20) mg/dL Creatinine 2.06 H (0.66-1.25) mg/dL Glucose 102 H (74-99) mg/dL POC Glucose (mg/dL) (70-110) mg/dL Calcium 7.9 L (8.4-10.2) mg/dL Magnesium (1.6-2.3) mg/dL Crossmatch 03/17/22 03/17/22 03/17/22 Range/Units 11:27 11:34 11:50 RBC 1.84 L (4.30-5.90) m/uL Hgb 5.6 L* D (13.0-17.5) gm/dL Hct 17.8 L* (39.0-53.0) % Lymphocytes # (1.0-4.8) k/uL ABG pCO2 26 L (35-45) mmHg ABG pO2 >400 H (83-108) mmHg ABG HCO3 18 L (21-25) mmol/L ABG Total CO2 18 L (19-24) mmol/L ABG O2 Saturation 100.0 H (94-97) % Carbon Dioxide (22-30) mmol/L BUN (9-20) mg/dL Creatinine (0.66-1.25) mg/dL Glucose (74-99) mg/dL POC Glucose (mg/dL) 59 L (70-110) mg/dL Calcium (8.4-10.2) mg/dL Magnesium (1.6-2.3) mg/dL Crossmatch 03/17/22 Range/Units 12:00 RBC (4.30-5.90) m/uL Hgb (13.0-17.5) gm/dL Hct (39.0-53.0) % Lymphocytes # (1.0-4.8) k/uL ABG pCO2 (35-45) mmHg ABG pO2 (83-108) mmHg ABG HCO3 (21-25) mmol/L ABG Total CO2 (19-24) mmol/L ABG O2 Saturation (94-97) % Carbon Dioxide (22-30) mmol/L BUN (9-20) mg/dL Creatinine (0.66-1.25) mg/dL Glucose (74-99) mg/dL POC Glucose (mg/dL) (70-110) mg/dL Calcium (8.4-10.2) mg/dL Magnesium 2.6 H (1.6-2.3) mg/dL Crossmatch Microbiology - Last 24 Hours (Table) 03/13/22 13:00 Blood Culture - Preliminary Blood No Growth after 72 hours 03/13/22 13:00 Blood Culture - Preliminary Blood No Growth after 72 hours Assessment and Plan (1) Pneumonia Status: Acute Code(s): J18.9 - PNEUMONIA, UNSPECIFIED ORGANISM SNOMED Code(s): 062905319 Plan: 1patient present to hospital with increasing shortness of breath and cough in this patient who do have a history of COPD and also history of COVID-19 pneumonia now with evidence of bibasilar infiltrate with concern for possible pneumonia however the patient did not have any fever or elevated white count concern for possible COPD exacerbation underlying pneumonia less likely but not returning started. 2patient did have mildly elevated CRP and procalcitonin and sputum for gram stain culture has been requested but not collected. 3patient respiratory status is stable and the patient will continue Zosyn and monitor clinical course closely Time with Patient: Less than 30
== END 2022-03-17 13:35 | disposition expired | DRG 208 ==
LOC: EC 09:42 → 3SCARD 12:15 → 2SICU 03-15 23:46
PROVIDERS: ADMIT Hospitalist; ATTEND Hospitalist
PROC: 4A133B1 Monitoring of Arterial Pressure, Peripheral, Percutaneous Approach (ICD-10-PCS; principal; 2022-03-17)
PROC: 03HY32Z Insertion of Monitoring Device into Upper Artery, Percutaneous Approach (ICD-10-PCS; principal; 2022-03-17)
PROC: 4A133J1 Monitoring of Arterial Pulse, Peripheral, Percutaneous Approach (ICD-10-PCS; 2022-03-17)
PROC: 06HM33Z Insertion of Infusion Device into Right Femoral Vein, Percutaneous Approach (ICD-10-PCS; 2022-03-17)
PROC: B54BZZA Ultrasonography of Right Lower Extremity Veins, Guidance (ICD-10-PCS; 2022-03-17)
PROC: 30233N1 Transfusion of Nonautologous Red Blood Cells into Peripheral Vein, Percutaneous Approach (ICD-10-PCS; 2022-03-17)
PROC: 3E033XZ Introduction of Vasopressor into Peripheral Vein, Percutaneous Approach (ICD-10-PCS; 2022-03-17)
PROC: 5A1935Z Respiratory Ventilation, Less than 24 Consecutive Hours (ICD-10-PCS; 2022-03-17)
PROC: 0BH17EZ Insertion of Endotracheal Airway into Trachea, Via Natural or Artificial Opening (ICD-10-PCS; 2022-03-17)
DX: J69.0 Pneumonitis due to inhalation of food and vomit (principal); I50.31 Acute diastolic (congestive) heart failure; J96.01 Acute respiratory failure with hypoxia; N17.9 Acute kidney failure, unspecified; D62 Acute posthemorrhagic anemia; J44.1 Chronic obstructive pulmonary disease with (acute) exacerbation; K92.1 Melena; Z51.5 Encounter for palliative care; Z20.822 Contact with and (suspected) exposure to COVID-19; I48.91 Unspecified atrial fibrillation; E11.9 Type 2 diabetes mellitus without complications; E86.1 Hypovolemia; E87.5 Hyperkalemia; I95.9 Hypotension, unspecified; I11.0 Hypertensive heart disease with heart failure; E78.5 Hyperlipidemia, unspecified; K21.9 Gastro-esophageal reflux disease without esophagitis; Z66 Do not resuscitate; Z87.891 Personal history of nicotine dependence; Z86.73 Personal history of transient ischemic attack (TIA), and cerebral infarction without residual deficits; Z79.02 Long term (current) use of antithrombotics/antiplatelets; Z79.82 Long term (current) use of aspirin; Z79.899 Other long term (current) drug therapy; Z86.16 Personal history of COVID-19; Z79.4 Long term (current) use of insulin; Z90.49 Acquired absence of other specified parts of digestive tract
CPT/HCPCS: 71045; 71046; 74230; 78278; 80048; 80053; 81001; 82805; 83036; 83605; 83735; 83880; 84145; 84484; 85025; 85027; 85610; 85730; 86140; 86850; 86900; 86901; 86920; 87040; 87635; 94002; 94640; 94760; 99285